=== PATIENT | female | born 1945 | race Caucasian/White ===

== ENCOUNTER → 2016-10-20 | Outpatient (CLI) | payer MEDICARE, OTHER ==
[2016-10-20 12:18] LABS: ALT 48 U/L (9-52); AST 47 U/L (14-36); Alkaline Phosphatase 100 U/L (38-126); Anion Gap 12 mmol/L; Blood Urea Nitrogen 33 mg/dL (7-17); Calcium 10.8 mg/dL (8.4-10.2); Carbon Dioxide 30 mmol/L (22-30); Chloride 104 mmol/L (98-107); Glucose 159 mg/dL (74-99); Non-African American GFR(MDRD) >60 (>60 ml/min/1.73 sqM); Potassium 4.8 mmol/L (3.5-5.1); Sodium 146 mmol/L (137-145); Total Bilirubin 0.7 mg/dL (0.2-1.3); Total Protein 7.1 g/dL (6.3-8.2)
[2016-10-20 12:20] LABS: Anisocytosis Slight; CH 31.6; CHCM 32.9; HCT 42.3 % (34.0-46.0); HDW 4.04; HGB 13.6 gm/dL (11.4-16.0); Hypochromasia Slight; MCH 31.3 pg (25.0-35.0); MCHC 32.2 g/dL (31.0-37.0); MCV 97.1 fL (80.0-100.0); Mean Platelet Volume 7.6; Poikilocytosis Moderate; RBC 4.35 m/uL (3.80-5.40); RDW 16.2 % (11.5-15.5); WBC 7.6 k/uL (3.8-10.6)
[2016-10-20 12:32] LABS: Prolactin 10.6 ng/mL (3.0-18.6)
[2016-10-20 13:05] LABS: Vitamin B12 573 pg/mL
[2016-10-21 04:54] LABS: ACTH 53.2 pg/mL (0.00-45.99)
== END | disposition home or self-care (01) ==
LOC: LABWHC1 11:34
PROVIDERS: ATTEND Internal Medicine Endocrinology, Diabetes & Metabolism
DX: E83.52 Hypercalcemia (principal); R53.83 Other fatigue
CPT/HCPCS: 36415; 80053; 82024; 82533; 82607; 83970; 84146; 84443; 85027

== ENCOUNTER 2017-04-12 09:06 | Emergency (ER) | payer MEDICARE, OTHER ==
[2017-04-12 09:14] VITALS: TEMP 98.2
[2017-04-12] MEDS ORDERED: KETOROLAC 30 MG/ML 1 ML VIAL IVP STA (09:29)
--- NOTE | 2017-04-12 09:40 | ED ---
General Adult HPI - General Source: patient, RN notes reviewed Mode of arrival: wheelchair Limitations: no limitations <Naldo Ramires - Last Filed: 04/12/17 11:41> <René Escobar - Last Filed: 04/12/17 11:52> - General Chief complaint: Extremity Injury, Upper Stated complaint: sent from [facility]/EKG Time Seen by Provider: 04/12/17 09:16 - History of Present Illness Initial comments: This a 71-year-old female presents emergency Department with chief complaint of left arm pain. Patient states his pain started muscular for heart pain radiates from her shoulder blade down to her elbow region. Patient states that she was at was more center who sent over here because her pulse was low and concerned about any cardiac issues secondary to pain of her arm. Patient states she gets chemo injections on her left arm. She states she's not sure this is related to that or not. Patient has fever, chills, headache, chest pain or shortness of breath. Denies any dizziness. Patient has no history of blood clot. Patient states that movement does make her symptoms worse at this time. (Naldo Ramires) - Related Data Home Medications Medication Instructions Recorded Confirmed Albuterol Sulfate [Ventolin HFA] 1 - 2 puff INHALATION Q6H PRN 01/29/14 04/12/17 Aspirin 325 mg PO DAILY 01/29/14 04/12/17 Atenolol/Chlorthalidone 1 tab PO DAILY 01/29/14 04/12/17 [Atenolol-Chlorthal 50-25 Tb] Benazepril HCl 20 mg PO DAILY 01/29/14 04/12/17 Letrozole [Femara] 2.5 mg PO DAILY 01/29/14 04/12/17 Levothyroxine Sodium [Synthroid] 137 mcg PO DAILY 01/29/14 04/12/17 Omeprazole [PriLOSEC] 20 mg PO DAILY 01/29/14 04/12/17 Ibuprofen [Motrin] 800 mg PO DAILY PRN 04/12/17 04/12/17 Simvastatin [Zocor] 20 mg PO Q7D 04/12/17 04/12/17 Allergies Allergy/AdvReac Type Severity Reaction Status Date / Time No Known Allergies Allergy Verified 04/12/17 09:34 Review of Systems ROS Other: All systems not noted in ROS Statement are negative. <Naldo Ramires - Last Filed: 04/12/17 11:41> ROS Other: All systems not noted in ROS Statement are negative. <René Escobar - Last Filed: 04/12/17 11:52> ROS Statement: Those systems with pertinent positive or pertinent negative responses have been documented in the HPI. Past Medical History Past Medical History: COPD, Diabetes Mellitus, GERD/Reflux, Hypertension, Osteoarthritis (OA), Pneumonia, Thyroid Disorder Additional Past Medical History / Comment(s): BREAST CA, HEART MURMUR, VARICOSE VEINS,HIATAL HERNIA, ARTHRITIS, OSTEOPENIA, STATES "PRE DIABETIC"Blood sugar elevated when on steroids. History of Any Multi-Drug Resistant Organisms: None Reported Past Surgical History: Appendectomy, Cholecystectomy, Joint Replacement Additional Past Surgical History / Comment(s): D&C,[place] KNEE REPLAC.,LAPARSCOPY, 04/2013 LT MASTECTOMY W/ SECURITY MESSENGER Past Anesthesia/Blood Transfusion Reactions: Motion Sickness Past Psychological History: Depression Smoking Status: Former smoker Past Alcohol Use History: None Reported Past Drug Use History: None Reported - Past Family History Mother Family Medical History: Cancer Sister(s) Family Medical History: Cancer <Naldo Ramires - Last Filed: 04/12/17 11:41> General Exam Limitations: no limitations General appearance: alert, in no apparent distress Head exam: Present: atraumatic, normocephalic, normal inspection Neck exam: Present: normal inspection, full ROM. Absent: tenderness, meningismus, lymphadenopathy Respiratory exam: Present: normal lung sounds bilaterally. Absent: respiratory distress, wheezes, rales, rhonchi, stridor Cardiovascular Exam: Present: regular rate, normal rhythm, normal heart sounds. Absent: systolic murmur, diastolic murmur, rubs, gallop, clicks Extremities exam: Present: other (Left arm there is slight erythematous petechial rash noted on the left forearm patient does have some ecchymosis noted and random areas on the left arm patient's full range of motion mild discomfort with range of motion in tenderness to palpation radial pulses equal bilaterally) Neurological exam: Present: alert, oriented X3, CN II-XII intact, reflexes normal. Absent: motor sensory deficit Skin exam: Present: warm, dry, intact, normal color. Absent: rash <Naldo Ramires - Last Filed: 04/12/17 11:41> Course <Naldo Ramires - Last Filed: 04/12/17 11:41> <René Escobar - Last Filed: 04/12/17 11:52> Vital Signs 04/12/17 04/12/17 09:09 09:42 Temperature 98.2 F Pulse Rate 53 L Pulse Rate [ [address] ] Respiratory 16 Rate Blood Pressure 116/59 O2 Sat by Pulse 93 L Oximetry - Reevaluation(s) Reevaluation #1: 04/12/17 11:51 POC supervision: I did personally do a [id number] evaluation the patient did discuss findings with her. She will follow-up with Dr. Harrington her oncologist. She is in agreement with the current plan of follow-up. She is awake alert oriented 3 did review the x-ray which is reveal density along the lateral margin of the right upper lobe she will follow-up with her oncologist for further evaluation. (René Escobar) EKG Findings - EKG Comments: EKG Findings:: EKG performed at 9:40 sinus bradycardia with rate of 46. WI interval 146 QS duration 82/QTC is QTC 452/395 <Naldo Ramires - Last Filed: 04/12/17 11:41> Medical Decision Making - Lab Data Result diagrams: 04/12/17 09:39 04/12/17 09:39 <Naldo Ramires - Last Filed: 04/12/17 11:41> - Lab Data Result diagrams: 04/12/17 09:39 04/12/17 09:39 <René Escobar - Last Filed: 04/12/17 11:52> - Medical Decision Making 71-year-old female For Left Arm Pain This Is Reproducible Muscle Skeletal Pain. Ultrasound Does Not Show Any Evidence of Acute DVT. Patient Lab Work Is essentially unremarkable though she appears to be slightly behind on fluids. Patient does take a beta terrance which is most likely causing her tachycardia. Patient is advised follow up with PCP and colorer hides and skins to adjust her medications. Patient is asymptomatic. Patient's chest x-ray results were updated shows possible mass. Patient does have breast cancer and will follow- up with Dr. carpenter this week. Return parameters were discussed. (Naldo Ramires) - Lab Data Lab Results 09/04/12/17 04/12/17 Range/Units 09:39 09:39 09:39 WBC 8.6 (3.8-10.6) k/uL RBC 4.51 (3.80-5.40) m/uL Hgb 13.9 (11.4-16.0) gm/dL Hct 43.1 (34.0-46.0) % MCV 95.5 (80.0-100.0) fL MCH 30.9 (25.0-35.0) pg MCHC 32.4 (31.0-37.0) g/dL RDW 16.0 H (11.5-15.5) % Plt Count 268 (150-450) k/uL Neutrophils % 76 % Lymphocytes % 17 % Monocytes % 7 % Eosinophils % 0 % Basophils % 0 % Neutrophils # 6.5 (1.3-7.7) k/uL Lymphocytes # 1.5 (1.0-4.8) k/uL Monocytes # 0.6 (0-1.0) k/uL Eosinophils # 0.0 (0-0.7) k/uL Basophils # 0.0 (0-0.2) k/uL Poikilocytosis Slight Anisocytosis Slight Sodium 142 (137-145) mmol/L Potassium 4.3 (3.5-5.1) mmol/L Chloride 105 (98-107) mmol/L Carbon Dioxide 26 (22-30) mmol/L Anion Gap 11 mmol/L BUN 41 H (7-17) mg/dL Creatinine 0.84 (0.52-1.04) mg/dL Est GFR (MDRD) Af Amer >60 (>60 ml/min/1.73 sqM) Est GFR (MDRD) Non-Af >60 (>60 ml/min/1.73 sqM) Glucose 172 H (74-99) mg/dL Calcium 9.6 (8.4-10.2) mg/dL Total Bilirubin 0.5 (0.2-1.3) mg/dL AST 24 (14-36) U/L ALT 33 (9-52) U/L Alkaline Phosphatase 84 (38-126) U/L Troponin I <0.012 (0.000-0.034) ng/mL Total Protein 6.5 (6.3-8.2) g/dL Albumin 3.7 (3.5-5.0) g/dL Disposition Time of Disposition: 11:43 <Naldo Ramires - Last Filed: 04/12/17 11:41> <René Escobar - Last Filed: 04/12/17 11:52> Clinical Impression: Left arm pain, Bradycardia, Chest mass, Breast cancer Disposition: HOME SELF-CARE Condition: Stable Instructions: Arm Pain (ED) Additional Instructions: Please return to the Emergency Department if symptoms worsen or any other concerns. Referrals: Ildefonso Montoya MD [Primary Care Provider] - 1-2 days
--- NOTE | 2017-04-12 10:10 | XR ---
EXAMINATION TYPE: XR chest 1V DATE OF EXAM: 04/12/2017 COMPARISON: NONE HISTORY: Pain TECHNIQUE: Single frontal view of the chest is obtained. FINDINGS: The heart is markedly enlarged and there is prominence of the thoracic aorta. Ill-defined density along the peripheral margin the right upper lobe. Could not exclude an infiltrate at the left lung base. No sizable pneumothorax. IMPRESSION: 1. Subsegmental consolidation left lung base with cardiomegaly. 2. Density along the lateral margin right upper lobe. Consider follow-up CT scan.
[2017-04-12 10:12] LABS: Anisocytosis Slight; Basophils % (A) 0 %; CH 31.8; CHCM 33.6; Eosinophils % (A) 0 %; HCT 43.1 % (34.0-46.0); HDW 3.89; HGB 13.9 gm/dL (11.4-16.0); Luc # (Auto) 0.04; Luc % (Auto) 1; Lymphocytes # (A) 1.5 k/uL (1.0-4.8); Lymphocytes % (A) 17 %; MCH 30.9 pg (25.0-35.0); MCHC 32.4 g/dL (31.0-37.0); MCV 95.5 fL (80.0-100.0); Mean Platelet Volume 8.3; Monocytes # (A) 0.6 k/uL (0-1.0); Monocytes % (A) 7 %; Neutrophils # (A) 6.5 k/uL (1.3-7.7); Neutrophils % (A) 76 %; Poikilocytosis Slight; RBC 4.51 m/uL (3.80-5.40); WBC 8.6 k/uL (3.8-10.6); WBC (Perox) 9.03
[2017-04-12 10:27] LABS: ALT 33 U/L (9-52); AST 24 U/L (14-36); Alkaline Phosphatase 84 U/L (38-126); Anion Gap 11 mmol/L; Blood Urea Nitrogen 41 mg/dL (7-17); Calcium 9.6 mg/dL (8.4-10.2); Carbon Dioxide 26 mmol/L (22-30); Chloride 105 mmol/L (98-107); Glucose 172 mg/dL (74-99); Non-African American GFR(MDRD) >60 (>60 ml/min/1.73 sqM); Potassium 4.3 mmol/L (3.5-5.1); Sodium 142 mmol/L (137-145); Total Bilirubin 0.5 mg/dL (0.2-1.3); Total Protein 6.5 g/dL (6.3-8.2)
--- NOTE | 2017-04-12 11:23 | US ---
EXAMINATION TYPE: US venous doppler duplex UE LT DATE OF EXAM: 04/12/2017 COMPARISON: NONE CLINICAL HISTORY: Left arm and shoulder Pain. SIDE PERFORMED: Left Left Arm: Appears negative for DVT Grayscale, color doppler, spectral doppler imaging performed of the deep veins of the left upper extr emity. There is normal flow, compressibility and vascular waveforms. IMPRESSION: No ultrasound evidence for acute deep or superficial vein thrombus in the left upper extr emity.
[2017-04-12 12:07] VITALS: BP 107/57; PULSE 48; RESP 24
== END 2017-04-12 12:11 | disposition home or self-care (01) ==
LOC: EC 09:06
DX: M79.602 Pain in left arm (principal); R00.1 Bradycardia, unspecified; C50.919 Malignant neoplasm of unspecified site of unspecified female breast; E07.9 Disorder of thyroid, unspecified; K21.9 Gastro-esophageal reflux disease without esophagitis; I10 Essential (primary) hypertension; Z87.891 Personal history of nicotine dependence; Z79.82 Long term (current) use of aspirin; Z79.899 Other long term (current) drug therapy
CPT/HCPCS: 36415; 93005; 80053; 84484; 85025; 71010; 93971; 99284; 96374; J1885

== ENCOUNTER 2017-04-16 12:06 | Emergency (ER) | payer MEDICARE, OTHER ==
[2017-04-16] MEDS ORDERED: METOCLOPRAMIDE 5 MG/ML 2 ML VIAL IVP STA (13:12)
[2017-04-16] MEDS ORDERED: LORazepam 2 MG/ML INJ IV STA (13:12)
[2017-04-16] MEDS ORDERED: SODIUM CHLORIDE 0.9% 1,000 ML IV STA (13:12)
[2017-04-16 13:19] LABS: Anisocytosis Slight; Aty Lym Flag Moderate; CH 32.6; CHCM 34.9; HCT 41.3 % (34.0-46.0); HGB 13.8 gm/dL (11.4-16.0); MCH 31.4 pg (25.0-35.0); MCHC 33.4 g/dL (31.0-37.0); MCV 94.2 fL (80.0-100.0); Poikilocytosis Slight; RBC 4.39 m/uL (3.80-5.40); RDW 16.4 % (11.5-15.5); WBC (Perox) 1.43
--- NOTE | 2017-04-16 13:21 | ED ---
General Adult HPI - General Chief complaint: Nausea/Vomiting/Diarrhea Stated complaint: NVD-cancer pt Time Seen by Provider: 04/16/17 13:05 Source: patient, RN notes reviewed Mode of arrival: wheelchair Limitations: no limitations - History of Present Illness Initial comments: 71-year-old female presents to the emergency department with a chief complaint of nausea vomiting and diarrhea. Patient had her first chemo treatment last week and she started to have the symptoms. She does not have any medications at home for this. She does not think she is getting better. Retention H she throws up. Patient states that she was hoping to get her to feel better. Patient states that she had her treatments at the [facility] here. Her doctor for her cancer is Dr. Harrington.Patient denies any recent fever, chills, shortness of breath, chest pain, back pain, abdominal pain, nausea vomiting, numbness or tingling, dysuria or hematuria, constipation or diarrhea, headaches or visual changes, or any other current symptoms. - Related Data Home Medications Medication Instructions Recorded Confirmed Albuterol Sulfate [Ventolin HFA] 1 - 2 puff INHALATION Q6H PRN 01/29/14 04/12/17 Aspirin 325 mg PO DAILY 01/29/14 04/12/17 Atenolol/Chlorthalidone 1 tab PO DAILY 01/29/14 04/12/17 [Atenolol-Chlorthal 50-25 Tb] Benazepril HCl 20 mg PO DAILY 01/29/14 04/12/17 Letrozole [Femara] 2.5 mg PO DAILY 01/29/14 04/12/17 Levothyroxine Sodium [Synthroid] 137 mcg PO DAILY 01/29/14 04/12/17 Omeprazole [PriLOSEC] 20 mg PO DAILY 01/29/14 04/12/17 Ibuprofen [Motrin] 800 mg PO DAILY PRN 04/12/17 04/12/17 Simvastatin [Zocor] 20 mg PO Q7D 04/12/17 04/12/17 Previous Rx's Medication Instructions Recorded Ondansetron Odt [Zofran ODT] 4 mg PO Q8HR PRN #20 tab 04/16/17 Allergies Allergy/AdvReac Type Severity Reaction Status Date / Time No Known Allergies Allergy Verified 04/16/17 14:47 Review of Systems ROS Statement: Those systems with pertinent positive or pertinent negative responses have been documented in the HPI. ROS Other: All systems not noted in ROS Statement are negative. Past Medical History Past Medical History: COPD, Diabetes Mellitus, GERD/Reflux, Hypertension, Osteoarthritis (OA), Pneumonia, Thyroid Disorder Additional Past Medical History / Comment(s): BREAST CA, HEART MURMUR, VARICOSE VEINS,HIATAL HERNIA, ARTHRITIS, OSTEOPENIA, STATES "PRE DIABETIC"Blood sugar elevated when on steroids. History of Any Multi-Drug Resistant Organisms: None Reported Past Surgical History: Appendectomy, Breast Surgery, Cholecystectomy, Joint Replacement Additional Past Surgical History / Comment(s): D&C,[place] KNEE REPLAC.,LAPARSCOPY, 04/2013 LT MASTECTOMY W/ EPIDEMIOLOGIST Past Anesthesia/Blood Transfusion Reactions: Motion Sickness Past Psychological History: Depression Smoking Status: Former smoker Past Alcohol Use History: None Reported Past Drug Use History: None Reported - Past Family History Mother Family Medical History: Cancer Sister(s) Family Medical History: Cancer General Exam - General Exam Comments Initial Comments: General: The patient is awake and alert, in no distress, and does not appear acutely ill. Eye: Pupils are equal, round and reactive to light, extra-ocular movements are intact; there is normal conjunctiva bilaterally. No signs of icterus. Ears, nose, mouth and throat: There are moist mucous membranes. Neck: The neck is supple, there is no tenderness. Cardiovascular: There is a regular rate and rhythm. No murmur, rub or gallop is appreciated. Respiratory: Lungs are clear to auscultation, respirations are non-labored, breath sounds are equal. No wheezes, stridor, rales, or rhonchi. Gastrointestinal: Soft, non-distended, non-tender abdomen without masses or organomegaly noted. There is no rebound or guarding present. No CVA tenderness. Bowel sounds are unremarkable. Back: There is no tenderness to palpation in the midline. There is no obvious deformity. No rashes noted. Musculoskeletal: Normal ROM, no tenderness, There is no pedal edema. There is no calf tenderness or swelling. Sensation intact. Pulses equal bilaterally 2+. Neurological: CN II-XII intact, There are no obvious motor or sensory deficits. Coordination appears grossly intact. Speech is normal. Skin: Skin is warm and dry and no rashes or lesions are noted. Psychiatric: Cooperative, appropriate mood & affect, normal judgment. Limitations: no limitations Course Vital Signs 04/16/17 12:42 Temperature 99.5 F Pulse Rate 92 Respiratory 16 Rate Blood Pressure 110/57 O2 Sat by Pulse 93 L Oximetry - Reevaluation(s) Reevaluation #1: 04/16/17 14:49 Patient was unable to provide stool sample here. We did send her home with a prescription and instructions on how to get this taken care of. Medical Decision Making - Medical Decision Making 71-year-old female presents emergency Department chief complaint of nausea vomiting and diarrhea . Patient states that she is feeling somewhat better. At this time we will start her on Zofran for home to help with her nausea. We did give her a liter of fluids. At this time I spoke with Dr. Harrington regarding the patient's care and he does feel comfortable with her discharged home. We will discharge her home and have her follow-up. She did tolerate a by mouth challenge. Patient is in agreement with this plan all questions have been answered. This time the patient will be discharged. - Lab Data Result diagrams: 04/16/17 13:16 04/16/17 13:16 Lab Results 04/16/17 04/16/17 04/16/17 Range/Units 13:16 13:16 13:52 WBC 1.4 L* (3.8-10.6) k/uL RBC 4.39 (3.80-5.40) m/uL Hgb 13.8 (11.4-16.0) gm/dL Hct 41.3 (34.0-46.0) % MCV 94.2 (80.0-100.0) fL MCH 31.4 (25.0-35.0) pg MCHC 33.4 (31.0-37.0) g/dL RDW 16.4 H (11.5-15.5) % Plt Count 198 (150-450) k/uL Neutrophils % (Manual) 14 % Lymphocytes % (Manual) 69 % Monocytes % (Manual) 17 % Neutrophils # (Manual) 0.20 L (1.3-7.7) k/uL Lymphocytes # (Manual) 0.97 L (1.0-4.8) k/uL Monocytes # (Manual) 0.24 (0-1.0) k/uL Nucleated RBCs 0 (0-0) /100 WBC Manual Slide Review Performed Poikilocytosis Slight Anisocytosis Slight Sodium 132 L (137-145) mmol/L Potassium 4.8 (3.5-5.1) mmol/L Chloride 98 (98-107) mmol/L Carbon Dioxide 25 (22-30) mmol/L Anion Gap 9 mmol/L BUN 46 H (7-17) mg/dL Creatinine 0.76 (0.52-1.04) mg/dL Est GFR (MDRD) Af Amer >60 (>60 ml/min/1.73 sqM) Est GFR (MDRD) Non-Af >60 (>60 ml/min/1.73 sqM) Glucose 143 H (74-99) mg/dL Calcium 10.1 (8.4-10.2) mg/dL Total Bilirubin 1.8 H (0.2-1.3) mg/dL AST 36 (14-36) U/L ALT 30 (9-52) U/L Alkaline Phosphatase 85 (38-126) U/L Total Protein 6.3 (6.3-8.2) g/dL Albumin 3.6 (3.5-5.0) g/dL Amylase <30 L (30-110) U/L Lipase 67 (23-300) U/L Urine Color [place] Urine Appearance Cloudy H (Clear) Urine pH 6.0 (5.0-8.0) Ur Specific [place] 1.023 (1.001-1.035) Urine Protein 1+ H (Negative) Urine Glucose (UA) Negative (Negative) Urine Ketones Negative (Negative) Urine Blood Negative (Negative) Urine Nitrite Negative (Negative) Urine Bilirubin 1+ H (Negative) Urine Urobilinogen 2.0 (<2.0) mg/dL Ur Leukocyte Esterase Moderate H (Negative) Urine RBC 2 (0-5) /hpf Urine WBC 19 H (0-5) /hpf Ur Squamous Epith Cells 8 H (0-4) /hpf Urine Bacteria Rare H (None) /hpf Cellular Casts 1 (0) /lpf Hyaline Casts 14 H (0-2) /lpf Urine Mucus Few H (None) /hpf Disposition Clinical Impression: Nausea & vomiting, Diarrhea, Breast cancer Disposition: HOME SELF-CARE Condition: Stable Instructions: Acute Nausea and Vomiting (ED) Additional Instructions: Please use medication as discussed. Please follow up with family doctor if symptoms have not improved over the next two days. Please return to the emergency room if your symptoms increase or worsen or for any other concerns. Prescriptions: Ondansetron Odt [Zofran ODT] 4 mg PO Q8HR PRN #20 tab PRN Reason: Nausea Referrals: Talha Oro MD [Primary Care Provider] - 1-2 days Time of Disposition: 14:53
[2017-04-16 13:25] LABS: WBC 1.4 k/uL (3.8-10.6)
[2017-04-16 13:30] LABS: ALT 30 U/L (9-52); AST 36 U/L (14-36); Alkaline Phosphatase 85 U/L (38-126); Amylase <30 U/L (30-110); Anion Gap 9 mmol/L; Blood Urea Nitrogen 46 mg/dL (7-17); Calcium 10.1 mg/dL (8.4-10.2); Carbon Dioxide 25 mmol/L (22-30); Chloride 98 mmol/L (98-107); Glucose 143 mg/dL (74-99); Non-African American GFR(MDRD) >60 (>60 ml/min/1.73 sqM); Sodium 132 mmol/L (137-145); Total Bilirubin 1.8 mg/dL (0.2-1.3); Total Protein 6.3 g/dL (6.3-8.2)
[2017-04-16 13:31] LABS: Potassium 4.8 mmol/L (3.5-5.1)
[2017-04-16 13:54] LABS: Add Differential Manual Differential
[2017-04-16 14:01] LABS: Manual Review Performed; Nucleated Red Blood Cells 0 /100 WBC (0-0); Total Cells Counted 100
[2017-04-16 14:02] LABS: Appearance,Urine Cloudy (Clear); Bacteria,Urine Rare /hpf; Bilirubin,Urine 1+ (Negative); Glucose,Urine (UA) Negative (Negative); Ketones,Urine Negative (Negative); Leukocyte Esterase,Urine Moderate (Negative); Mucus,Urine Few /hpf; Nitrite,Urine Negative (Negative); Particle Count 12990; Protein,Urine 1+ (Negative); RBC,Urine 2 /hpf (0-5); Specific Gravity,Urine 1.023 (1.001-1.035); Squamous Epithelial Cell,Urine 8 /hpf (0-4); UA Billing (MACRO vs. MICRO) MICRO; WBC,Urine 19 /hpf (0-5)
[2017-04-16 15:21] VITALS: BP 142/73; PULSE 96; RESP 18; TEMP 98.9
== END 2017-04-16 15:27 | disposition home or self-care (01) ==
LOC: EC 12:06
DX: R11.2 Nausea with vomiting, unspecified (principal); R19.7 Diarrhea, unspecified; C50.919 Malignant neoplasm of unspecified site of unspecified female breast; F32.9 Major depressive disorder, single episode, unspecified; K21.9 Gastro-esophageal reflux disease without esophagitis; E07.9 Disorder of thyroid, unspecified; I10 Essential (primary) hypertension; Z90.12 Acquired absence of left breast and nipple; Z87.891 Personal history of nicotine dependence; Z79.82 Long term (current) use of aspirin; Z79.899 Other long term (current) drug therapy
CPT/HCPCS: 99284 ×2; 96374 ×2; 96375 ×2; 96361 ×2; 36415; 80053; 82150; 83690; 85025; 81001; J2060; J2765

== ENCOUNTER → 2018-03-02 | Outpatient (CLI) | payer MEDICARE ==
--- NOTE | 2018-03-02 18:04 | US ---
EXAMINATION TYPE: US pelvis complete transvag DATE OF EXAM: 03/02/2018 COMPARISON: NONE CLINICAL HISTORY: K40 Inguinal Pain. Left side pain. No surgeries. Hx of breast cancer, not on tamo xifen TECHNIQUE: Transvaginal (TV) and Transabdominal (TA) . Transabdominal sonographic images of the pel vis were acquired. Transvaginal sonographic images were medically necessary to better assess the fol lowing anatomy: Endometrium and ovaries Date of LMP: EXECUTIVE RECRUITER, EXAM MEASUREMENTS: Uterus: 6.4 x 4.5 x 3.2 cm Endometrial Stripe: 0.2 cm 1. Uterus: Anteverted Peripheral calcifications seen. Heterogenous. 2. Endometrium: Fluid seen within cavity at fundal region 3. Right Ovary: Obscured by overlying bowel gas 4. Left Ovary: Obscured by overlying bowel gas 5. Bilateral Adnexa: wnl 6. Posterior cul-de-sac: no free fluid Cervix- wnl IMPRESSION: Uterus appears normal for age. No adnexal mass or free fluid.
== END | disposition home or self-care (01) ==
LOC: RADUSWWP 16:07
PROVIDERS: ATTEND Family Medicine
DX: R10.30 Lower abdominal pain, unspecified (principal)
CPT/HCPCS: 76830; 76856

== ENCOUNTER → 2018-04-06 | Outpatient (CLI) | payer MEDICARE ==
--- NOTE | 2018-04-09 07:45 | MM ---
Reason for exam: additional evaluation requested from prior study. History: Patient is postmenopausal and has history of breast cancer at age 67. Family history of breast cancer in mother at age 60 and breast cancer in sister at age 60. Lumpectomy of the right breast, 2017. Chemotherapy, 2017. Silicone gel implant in the left breast, 2012. Reconstruction of the left breast, 2012. Mastectomy of the left breast, 2012. Taking antineoplastic for 5 years. Physical Findings: Nurse did not find any significant physical abnormalities on exam. MG 3D Diag Mammo W/Cad [place] Bilateral CC and MLO view(s) were taken. XCCL view(s) were taken of the right breast. ID view(s) were taken of the left breast. The breast tissue is heterogeneously dense. This may lower the sensitivity of mammography. No suspicious calcifications are seen. Left breast mastectomy with implant. Stable lumpectomy changes right breast. These results were verbally communicated with the patient and result sheet given to the patient on 04/06/18. ASSESSMENT: Benign, BI-RAD 2 RECOMMENDATION: Follow-up diagnostic mammogram of both breasts in 1 year.
== END | disposition home or self-care (01) ==
LOC: RADMAMWWP 12:45
PROVIDERS: ATTEND Internal Medicine Hematology & Oncology
DX: Z08 Encounter for follow-up examination after completed treatment for malignant neoplasm (principal); Z85.3 Personal history of malignant neoplasm of breast
CPT/HCPCS: 77066; G0279; 77062

== ENCOUNTER → 2018-04-28 | Outpatient (CLI) | payer MEDICARE ==
--- NOTE | 2018-04-28 19:23 | PE ---
EXAMINATION TYPE: PET CT fusion skull to thigh DATE OF EXAM: 04/28/2018 COMPARISON: 3-D mammogram April 06, 2018. HISTORY: Breast cancer progress study. Diagnosed on biopsy in April 2017. Completed chemotherapy June 2017 after surgery in April. TECHNIQUE: Following the intravenous administration of 10.047 mCi of F-18 FDG, whole body images are performed from the skull base to the midthigh. Images are reviewed on the computer in the coronal, axial, and sagittal planes. Reconstructed rotating images are created on independent workstation and reviewed on the computer. A noncontrast CT is performed in conjunction with the PET scan. SCAN: Subsequent Scan FINDINGS: Exam slightly suboptimal due to patient's large body habitus SKULL BASE AND NECK: No areas of suspicious hypermetabolic uptake are seen. CHEST, MEDIASTINUM, AND HILAR REGION: Left breast implant is in place. No areas of suspicious hyperme tabolic uptake in the thorax including bilateral breast is identified. Surgical clips from right-side d excisional biopsy are redemonstrated. ABDOMEN AND PELVIS: No areas of suspicious hypermetabolic uptake identified. OSSEOUS STRUCTURES: No areas of suspicious hypermetabolic uptake are seen. OTHER CT: Mild to moderate calcified plaque bilateral carotid bulbs is present. Thyroid gland is atro phic or small in size. There is right lateral chest wall lipoma axial image 92. There is marked cardiomegaly with coronary artery calcification which is noted marker for coronary ar aurelia disease. There are enlarged pulmonary arteries, CT findings consistent with underlying pulmonary artery hypertension. There is prominent right hepatic lobe of liver. Gallbladder is not visualized and presumed surgically absent. Spleen is upper limits of normal in size. There is mild to moderate calcified plaque of aorta extending into branch vessels. There is multilevel facet arthropathy in the mid to lower lumbar spine. There is tiny fat-containing umbilical hernia. Occasional pelvic phlebolith is present. IMPRESSION: No suspicious areas of hypermetabolic uptake identified to suggest local or metastatic ma lignant recurrence.
== END | disposition home or self-care (01) ==
LOC: RADPETMAIN 16:09
PROVIDERS: ATTEND Internal Medicine Hematology & Oncology
DX: C50.411 Malignant neoplasm of upper-outer quadrant of right female breast (principal)
CPT/HCPCS: 78815; A9552

== ENCOUNTER → 2018-06-05 | Outpatient (CLI) | payer MEDICARE ==
--- NOTE | 2018-06-06 15:50 | ECHOF ---
Referral Reason:I51.7 Cardiomegaly MEASUREMENTS -------- HEIGHT: 152.4 cm WEIGHT: 106.6 kg BP: IVSd: 1.4 cm (0.6 - 1.1) LVIDd: 4.4 cm (3.9 - 5.3) LVPWd: 2.3 cm (0.6 - 1.1) IVSs: 1.7 cm LVIDs: 4.3 cm LVPWs: 1.1 cm LAESV Index (A-L): 27.33 ml/m Ao Diam: 3.8 cm (2.0 - 3.7) LA Diam: 3.8 cm (2.7 - 3.8) MV EXCURSION: 11.128 mm (> 18.000) MV EF SLOPE: 58 mm/s (70 - 150) EPSS: 0.4 cm MV E Jb: 0.40 m/s MV DecT: 282 ms MV A Jb: 0.82 m/s MV E/A Ratio: 0.49 RAP: 5.00 mmHg RVSP: 37.13 mmHg FINDINGS -------- Sinus rhythm. This was a technically adequate study. Pt. Has Breast inplants The left ventricular size is normal. There is moderate concentric left ventricular hypertrophy. O verall left ventricular systolic function is low-normal with, an EF between 50 - 55 %. The right ventricle is normal in size. The left atrial size is normal. The right atrial size is normal. There is mild aortic valve sclerosis. There is no evidence of aortic regurgitation. Mild mitral annular calcification present. Mild mitral regurgitation is present. Mild tricuspid regurgitation present. There is mild pulmonary hypertension. The right ventricular systolic pressure, as measured by Doppler, is 37.13mmHg. There is no pulmonic regurgitation present. The aortic root size is normal. There is no pericardial effusion. CONCLUSIONS -------- 1. Pt. Has Breast inplants 2. The left ventricular size is normal. 3. There is moderate concentric left ventricular hypertrophy. 4. Overall left ventricular systolic function is low-normal with, an EF between 50 - 55 %. 5. The right ventricle is normal in size. 6. The left atrial size is normal. 7. The right atrial size is normal. 8. There is mild aortic valve sclerosis. 9. Mild mitral annular calcification present. 10. Mild mitral regurgitation is present. 11. Mild tricuspid regurgitation present. 12. There is mild pulmonary hypertension. 13. The right ventricular systolic pressure, as measured by Doppler, is 37.13mmHg. 14. There is no pulmonic regurgitation present. 15. The aortic root size is normal. 16. There is no pericardial effusion. STOCK SPECULATOR: Sirena Gillis RDCS
== END ==
LOC: RADECHMAIN 15:01
PROVIDERS: ATTEND Family Medicine
DX: I08.1 Rheumatic disorders of both mitral and tricuspid valves (principal); I27.20 Pulmonary hypertension, unspecified
CPT/HCPCS: 93306

== ENCOUNTER 2018-10-04 16:04 | Inpatient (IN) | payer MEDICARE ==
[2018-10-04 17:07] VITALS: BMI 44.9
[2018-10-04] MEDS ORDERED: traMADol 50 MG TAB PO PRN (19:12)
[2018-10-04] MEDS ORDERED: HEPARIN SODIUM,PORCINE 5,000 UNIT/ML 1 ML VIAL IV PRN (19:14)
[2018-10-04] MEDS ORDERED: HEPARIN SOD,PORK IN 0.45% NACL 25,000 UNIT in 0.45% NACL 1 250ML.BAG IV SCH (19:15)
[2018-10-04] MEDS: DILTIAZEM 125 MG in SODIUM CHLORIDE 0.9% 100 ML IV SCH (19:38)
[2018-10-04] MEDS: ATORVASTATIN 10 MG TAB PO SCH (19:41)
[2018-10-04 19:49] LABS: Prothrombin Time 11.1 sec (9.0-12.0)
[2018-10-04 19:50] LABS: Partial Thromboplastin Time 20.9 sec (22.0-30.0)
--- NOTE | 2018-10-04 19:58 | XR ---
EXAMINATION TYPE: XR chest 1V portable DATE OF EXAM: 10/04/2018 COMPARISON: 04/12/2017 HISTORY: Atrial fibrillation. Short of breath TECHNIQUE: Single frontal view of the chest is obtained. FINDINGS: There is no heart failure nor confluent pneumonic infiltrate. Exam is limited by the patie nt size. There is no definite pleural effusion. There is probably subsegmental atelectasis at the lef t lung base. IMPRESSION: Left basilar subsegmental atelectasis unchanged compared to old exam. There is probably cardiomegaly.
[2018-10-04 20:49] LABS: T4, Free (Free Thyroxine) 1.31 ng/dL (0.78-2.19)
[2018-10-04] MEDS: MELATONIN 3 MG TABLET PO SCH (22:40)
[2018-10-05] MEDS: DILTIAZEM 125 MG in SODIUM CHLORIDE 0.9% 100 ML IV SCH (02:44)
[2018-10-05 02:57] LABS: Basophils # (A) 0.1 k/uL (0-0.2); Basophils % (A) 1 %; Eosinophils # (A) 0.1 k/uL (0-0.7); Eosinophils % (A) 1 %; HCT 42.5 % (34.0-46.0); Hypochromasia Moderate; Lymphocytes # (A) 2.2 k/uL (1.0-4.8); Lymphocytes % (A) 25 %; MCH 28.7 pg (25.0-35.0); MCHC 30.7 g/dL (31.0-37.0); MCV 93.6 fL (80.0-100.0); Mean Platelet Volume 6.9; Monocytes # (A) 0.5 k/uL (0-1.0); Monocytes % (A) 6 %; Neutrophils # (A) 5.5 k/uL (1.3-7.7); Neutrophils % (A) 64 %; Platelet Count 258 k/uL (150-450); Poikilocytosis Moderate; RBC 4.54 m/uL (3.80-5.40); WBC 8.5 k/uL (3.8-10.6)
[2018-10-05 03:12] LABS: ALT 31 U/L (9-52); AST 18 U/L (14-36); Albumin 3.8 g/dL (3.5-5.0); Alkaline Phosphatase 93 U/L (38-126); Anion Gap 5 mmol/L; Blood Urea Nitrogen 39 mg/dL (7-17); Calcium 10.7 mg/dL (8.4-10.2); Carbon Dioxide 32 mmol/L (22-30); Chloride 106 mmol/L (98-107); Glucose 125 mg/dL (74-99); Magnesium 1.9 mg/dL (1.6-2.3); Potassium 4.5 mmol/L (3.5-5.1); Sodium 143 mmol/L (137-145); Total Bilirubin 0.8 mg/dL (0.2-1.3); Total Protein 6.2 g/dL (6.3-8.2)
[2018-10-05] MEDS ORDERED: LEVOTHYROXINE 75 MCG TAB PO SCH (06:30)
[2018-10-05] MEDS: PANTOPRAZOLE 40 MG TABLET PO SCH (06:33)
[2018-10-05 07:29] LABS: ALT 33 U/L (9-52); AST 19 U/L (14-36); Albumin 3.7 g/dL (3.5-5.0); Alkaline Phosphatase 89 U/L (38-126); Anion Gap 5 mmol/L; Blood Urea Nitrogen 39 mg/dL (7-17); Calcium 10.4 mg/dL (8.4-10.2); Carbon Dioxide 34 mmol/L (22-30); Chloride 104 mmol/L (98-107); Glucose 116 mg/dL (74-99); Potassium 4.5 mmol/L (3.5-5.1); Sodium 143 mmol/L (137-145); Total Bilirubin 0.9 mg/dL (0.2-1.3); Total Protein 6.1 g/dL (6.3-8.2)
[2018-10-05] MEDS: predniSONE 5 MG TAB PO SCH (08:10)
[2018-10-05] MEDS: LETROZOLE 2.5 MG TAB PO SCH (08:11)
[2018-10-05] MEDS ORDERED: LISINOPRIL 20 MG TAB PO SCH (09:00)
[2018-10-05] MEDS ORDERED: MAGNESIUM SULFATE-D5W PMX 1 GM in DEXTROSE/WATER 1 100ML.BAG IVPB ONE (09:35)
[2018-10-05] MEDS: APIXABAN 5 MG TAB PO SCH ×2 (11:02→19:55)
[2018-10-05] MEDS: METOPROLOL TARTRATE 50 MG TAB PO SCH ×2 (11:02→19:55)
--- NOTE | 2018-10-05 11:13 | P.CRDCN ---
History of Present Illness Consult date: 10/05/18 Reason for Consult (text): A. fib RVR Chief complaint: A. fib RVR History of present illness: HISTORY OF PRESENT ILLNESS AND PLAN: This is a 72-year-old [female] with history of breast cancer with left mastectomy in 2012, appendectomy, cholecystectomy, bilateral total knee placement, COPD, 25 year and 1/2 PPD smoker, hypertension, hyperlipidemia, hypothyroid and GERD. Patient presents as direct admit [from Dr. Arnold's office for atrial fibrillation on ECG. Pt presents A. fib with rapid ventricular rate. Patient states she cannot feel palpitations, chest pain, chest pressure. Patient does state she is short of breath with productive cough, patient states she thought it was part of her COPD. Patient is not currently smoking. Patient smoked for 25 years 1/2 PPD. Patient wears oxygen at home, 4 L O2 NC. Patient continues with anti-estrogen therapy for breast cancer history. Patient states she has never seen cardiology. Patient anticoagulated with IV heparin and continues on IV Cardizem. Currently A. fib, heart rate 107. Afebrile.]. SIGNIFICANT PAST MEDICAL HISTORY: [breast cancer with left mastectomy in 2012, appendectomy, cholecystectomy, bilateral total knee placement, COPD, 25 year and 1/2 PPD smoker, hypertension, hyperlipidemia, hypothyroid and GERD] PAST SURGICAL HISTORY: See list. EKG shows [atrial fibrillation], heart rate [107] bpm. Troponins negative x [1]. SIGNIFICANT LABORATORY VALUES: [CBC, WNL BMP, WNL. BUN, 39. CO2, elevated at 32. Magnesium low, 1.9. TSH low, 0.207. ]. Chest x-ray [within normal limits]. Most recent echo dated = [06/05/2018] indicates [EF 50-55%, mild MR. Mild TR. Mild pulmonary hypertension.]. REVIEW OF SYSTEMS: CONSTITUTIONAL: [Denies fever. Denies chills.] EYES: Denies blurred vision. [Denies blurred vision or vision changes. Denies eye pain.] EARS, NOSE, MOUTH & THROAT: [Denies headache. Denies sore throat. Denies ear pain Denies hemoptysis.] CARDIOVASCULAR: [Denies chest pain. Complains of shortness of breath. Denies orthopnea. Denies PND. Denies palpitations.] RESPIRATORY: [Complains of cough with clear sputum production. Complains of shortness of breath. ] GASTROINTESTINAL: [Denies abdominal pain or distention. Denies diarrhea. Denies constipation. Denies nausea. Denies vomiting.] MUSCULOSKELETAL: [Complains of myalgias.] INTEGUMENTARY: [Denies pruitis. Denies rash.] ENDOCRINE: [Complains of fatigue. Denies weight change. Denies polydipsia. Denies polyurina Denies heat/cold intolerance.] GENITOURINARY:[ Denies burning, hematuria or urgency with micturation.] HEMATOLOGIC: [Denies history of anemia. Denies bleeding.] NEUROLOGIC: [Denies numbness. Denies tingling. Complains of weakness.] PSYCHIATRIC: [Denies anxiety. Denies depression.] PHYSICAL EXAM: VITAL SIGNS: stable GENERAL: Well developed, in no acute distress. HEENT: Head is atraumatic, normocephalic. Pupils are equal, round. Extra ocular movements intact. Mucous membranes moist. Neck supple. No JVD. No carotid bruit. No thyromegaly. LUNGS: Auscultation reveals diminished lung sounds bilaterally. No wheezes, rales or rhonchi. Scattered coarse crackle. No chest wall tenderness on palpation or with deep breathing. HEART: Irregular rhythm. No rubs or gallops. S1 and S2 heard. No murmur. ABDOMEN: Abdominal exam, WNL. Bowel sounds x4 quads. Soft, non-tender, without masses, organomegaly, or abdominal aorta enlargement. EXTREMITIES/VASCULAR: Extremities have easily palpable radial, femoral, dorsalis pedis and posterior tibial pulses. No cyanosis, calf tenderness. No BLE edema. NEUROLOGIC: Patient is awake, alert and oriented x3. No focal neurologic abnormalities. FINAL IMPRESSION: 1. [new onset atrial fibrillation]. 2. [hypertension]. 3. [hyperlipidemia]. 4. [COPD exacerbation]. 5. [hypothyroidism, with low TSH level]. PLAN: [Start beta terrance metoprolol tartrate 50 mg twice daily. Discontinue Cardizem IV. Discontinue heparin IV. Start Eliquis 5 mg twice daily. Decrease Synthroid to 125 g daily. Continue all other medication/medical regime. Will follow along, please call with concerns or questions. Thank you kindly for this consult.] Nurse Practitioner note has been reviewed by the Physician. Signing provider agrees with the documented findings, assessment and plan of care. Past Medical History Past Medical History: COPD, Diabetes Mellitus, GERD/Reflux, Hypertension, Osteoarthritis (OA), Pneumonia, Thyroid Disorder Additional Past Medical History / Comment(s): BREAST CA, HEART MURMUR, VARICOSE VEINS,HIATAL HERNIA, ARTHRITIS, OSTEOPENIA, STATES "PRE DIABETIC"Blood sugar elevated when on steroids. possible liver disease, unable to remember History of Any Multi-Drug Resistant Organisms: None Reported Past Surgical History: Appendectomy, Breast Surgery, Cholecystectomy, Joint Replacement Additional Past Surgical History / Comment(s): D&C,[place] KNEE REPLAC.,LAPARSCOPY,04/2013 LT MASTECTOMY W/ DEPUTY SHERIFF Past Anesthesia/Blood Transfusion Reactions: Motion Sickness Smoking Status: Former smoker - Past Family History Mother Family Medical History: Cancer Sister(s) Family Medical History: Cancer Medications and Allergies Home Medications Medication Instructions Recorded Confirmed Type Letrozole [Femara] 2.5 mg PO DAILY 01/29/14 10/04/18 History Omeprazole [PriLOSEC] 20 mg PO DAILY 01/29/14 10/04/18 History Benazepril HCl 40 mg PO DAILY 10/04/18 10/04/18 History Ibuprofen [Motrin] 800 mg PO BID 10/04/18 10/04/18 History Levothyroxine Sodium [Synthroid] 150 mcg PO DAILY 10/04/18 10/04/18 History Simvastatin [Zocor] 10 mg PO HS 10/04/18 10/04/18 History predniSONE 5 mg PO DAILY 10/04/18 10/04/18 History traMADol HCL [Ultram] 50 mg PO BID PRN 10/04/18 10/04/18 History Allergies Allergy/AdvReac Type Severity Reaction Status Date / Time No Known Allergies Allergy Verified 10/04/18 18:15 Physical Exam Vitals: Vital Signs Temp Pulse Resp BP Pulse Ox 10/05/18 08:00 97.6 F 97 18 126/77 90 L 10/05/18 04:00 97.0 F L 77 18 151/82 90 L 10/04/18 23:01 97.6 F 121 H 18 146/98 93 L 10/04/18 20:00 98.3 F 151 H 19 125/73 88 L 10/04/18 16:53 98.1 F 160 H 18 156/95 93 L Intake and Output 10/04/18 10/05/18 10/05/18 22:59 06:59 14:59 Intake Total 10 36.382 200 Output Total 0 Balance 10 36.382 200 Intake: IV 10 Invasive Line 1 10 Intake, IV Titration 36.382 Amount Diltiazem 125 mg In 35.5 Sodium Chloride 0.9% 100 ml @ 5 MG/HR 5 mls/hr IV .Q24H KAROL Rx#:[id number] Heparin Sod,Pork in 0.45% 0.882 NaCl 25,000 unit In 0.45 % NaCl 1 250ml.bag @ 10 mls/hr IV .Q24H KAROL Rx#: [id number] Oral 200 Output: Urine 0 Other: Voiding Method Toilet Toilet # Voids 1 1 1 Weight 104.4 kg 104.4 kg Results 10/05/18 02:36 10/05/18 05:37 Cardiac Enzymes 10/04/18 10/04/18 10/05/18 Range/Units 19:15 19:15 02:36 AST Cancelled 18 Troponin I <0.012 (0.000-0.034) ng/mL 10/05/18 Range/Units 05:37 AST 19 Troponin I (0.000-0.034) ng/mL Coagulation 10/04/18 10/05/18 Range/Units 19:15 02:36 PT 11.1 (9.0-12.0) sec APTT 20.9 L 23.3 (22.0-30.0) sec CBC 10/05/18 Range/Units 02:36 WBC 8.5 (3.8-10.6) k/uL RBC 4.54 (3.80-5.40) m/uL Hgb 13.0 (11.4-16.0) gm/dL Hct 42.5 (34.0-46.0) % Plt Count 258 (150-450) k/uL Comprehensive Metabolic Panel 10/04/18 10/05/18 10/05/18 Range/Units 19:15 02:36 05:37 Sodium Cancelled 143 143 Potassium Cancelled 4.5 4.5 Chloride Cancelled 106 104 Carbon Dioxide Cancelled 32 H 34 H BUN Cancelled 39 H 39 H Creatinine Cancelled 0.72 0.73 Glucose Cancelled 125 H 116 H Calcium Cancelled 10.7 H 10.4 H AST Cancelled 18 19 ALT Cancelled 31 33 Alkaline Phosphatase Cancelled 93 89 Total Protein Cancelled 6.2 L 6.1 L Albumin Cancelled 3.8 3.7 Current Medications Generic Name Dose Route Start Last Admin Trade Name Freq PRN Reason Stop Dose Admin Atorvastatin Calcium 10 mg 10/04/18 21:00 10/04/18 19:41 Lipitor PO 10 mg HS KAROL Administration Heparin Sodium (Porcine) 0 unit 10/04/18 19:14 Heparin IV PER PROTOCOL PRN Low PTT Protocol Diltiazem HCl 125 mg/ Sodium 125 mls @ 5 mls/hr 10/04/18 19:15 10/05/18 02:44 Chloride IV 5 mg/hr .Q24H KAROL 5 mls/hr Administration 5 MG/HR Heparin Sodium/Sodium Chloride 250 mls @ 10 mls/hr 10/04/18 19:15 10/05/18 04:27 25,000 unit/ Sodium Chloride IV 13 units/hr .Q24H KAROL 0.13 mls/hr Titration Protocol Magnesium Sulfate/Dextrose 1 100 mls @ 100 mls/hr 10/05/18 09:35 gm/ IV Solution IVPB 10/05/18 10:34 ONCE ONE Letrozole 2.5 mg 10/05/18 09:00 10/05/18 08:11 Femara PO 2.5 mg DAILY KAROL Administration Levothyroxine Sodium 150 mcg 10/05/18 06:30 10/05/18 06:33 Synthroid PO 150 mcg DAILY@0630 KAROL Administration Lisinopril 40 mg 10/05/18 09:00 10/05/18 09:10 Zestril PO 40 mg DAILY KAROL Administration Melatonin 3 mg 10/04/18 22:45 10/04/18 22:40 Melatonin PO 3 mg HS KAROL Administration Pantoprazole Sodium 40 mg 10/05/18 07:30 10/05/18 06:33 Protonix PO 40 mg [id number] KAROL Administration Prednisone 5 mg 10/05/18 09:00 10/05/18 08:10 PO 5 mg DAILY KAROL Administration Tramadol HCl 50 mg 10/04/18 19:12 Ultram PO BID PRN Pain Intake and Output 10/04/18 10/05/18 10/05/18 22:59 06:59 14:59 Intake Total 10 36.382 200 Output Total 0 Balance 10 36.382 200 Intake: IV 10 Invasive Line 1 10 Intake, IV Titration 36.382 Amount Diltiazem 125 mg In 35.5 Sodium Chloride 0.9% 100 ml @ 5 MG/HR 5 mls/hr IV .Q24H KAROL Rx#:[id number] Heparin Sod,Pork in 0.45% 0.882 NaCl 25,000 unit In 0.45 % NaCl 1 250ml.bag @ 10 mls/hr IV .Q24H KAROL Rx#: [id number] Oral 200 Output: Urine 0 Other: Voiding Method Toilet Toilet # Voids 1 1 1 Weight 104.4 kg 104.4 kg 10/05/18 02:36 10/05/18 05:37 - EKG Interpretation EKG shows: atrial fibrillation
--- NOTE | 2018-10-05 11:38 | HP ---
HISTORY AND PHYSICAL A 73-year-old female admitted with A. fib with rapid ventricular response, heart rate in the 170s, started on IV Cardizem drip. Cardiology has been consulted. She came in with lightheaded, dizziness, shortness of breath. REVIEW OF SYSTEMS: Fourteen point review of systems negative except for in HPI. MEDICATIONS: Home medications include: 1. Lopressor. 2. Protonix. 3. Tramadol. 4. Prednisone. 5. Levothyroxine. 6. Zestril. 7. Eliquis. 8. Lipitor. 9. Femara. PHYSICAL EXAMINATION: VITAL SIGNS: Temperature 97.6, pulse is 90s to low 100s, respiratory rate 16 to 18, blood pressure 120 to 150s over 80s to 90s, O2 of 90% on 2 L. CARDIOVASCULAR: Irregular, irregular rhythm with heart rate in the 170s. LUNGS: Scattered wheeze. GI: Soft. HEMATOLOGY: Negative Homans. PSYCH: Fair mood and affect. ASSESSMENT: 1. Atrial fibrillation rapid ventricular response. 2. Hypertension. 3. Hypothyroidism. 4. Chronic obstructive pulmonary disease. 5. History of breast cancer. Continue on current treatments, Cardizem drip, thyroid studies, cardiology consult, echo. MMODL / IJN: [id number] /
--- NOTE | 2018-10-05 18:41 | ECHOF ---
Referral Reason:A-fib RVR MEASUREMENTS -------- HEIGHT: 154.9 cm WEIGHT: 104.3 kg BP: IVSd: 0.9 cm (0.6 - 1.1) LVIDd: 3.6 cm (3.9 - 5.3) LVPWd: 1.0 cm (0.6 - 1.1) IVSs: 1.1 cm LVIDs: 1.4 cm LVPWs: 1.2 cm LAESV Index (A-L): 24.55 ml/m Ao Diam: 3.5 cm (2.0 - 3.7) AV Cusp: 1.8 cm (1.5 - 2.6) LA Diam: 3.4 cm (2.7 - 3.8) AR PHT: 138 ms RAP: 5.00 mmHg RVSP: 33.70 mmHg FINDINGS -------- Atrial fibrillation. This was a technically difficult study with suboptimal views. The left ventricular size is normal. Left ventricular wall thickness is normal. Overall left vent ricular systolic function is low-normal with, an EF between 50 - 55 %. The right ventricle is normal in size. Normal LA size by volume 22+/-6 ml/m2. The right atrium is normal in size. Lumason used The aortic valve is trileaflet and appears structurally normal. Trace amount of aortic regurgitatio n. The mitral valve leaflets are mildly thickened. Mild mitral regurgitation is present. Mild tricuspid regurgitation present. The right ventricular systolic pressure, as measured by Doppl er, is 33.70mmHg. There is no pulmonic regurgitation present. The aortic root size is normal. IVC Not well visulized. The pericardium is normal. CONCLUSIONS -------- 1. Atrial fibrillation. 2. This was a technically difficult study with suboptimal views. 3. The left ventricular size is normal. 4. Left ventricular wall thickness is normal. 5. Overall left ventricular systolic function is low-normal with, an EF between 50 - 55 %. 6. The right ventricle is normal in size. 7. Normal LA size by volume 22+/-6 ml/m2. 8. The right atrium is normal in size. 9. Lumason used 10. The aortic valve is trileaflet and appears structurally normal. 11. Trace amount of aortic regurgitation. 12. The mitral valve leaflets are mildly thickened. 13. Mild mitral regurgitation is present. 14. Mild tricuspid regurgitation present. 15. The right ventricular systolic pressure, as measured by Doppler, is 33.70mmHg. 16. There is no pulmonic regurgitation present. 17. The aortic root size is normal. 18. IVC Not well visulized. 19. The pericardium is normal. [employer] OPERATOR: Raquel Rea RDCS
[2018-10-05] MEDS: ATORVASTATIN 10 MG TAB PO SCH (19:55)
[2018-10-05] MEDS: MELATONIN 3 MG TABLET PO SCH (23:03)
[2018-10-06] MEDS: PANTOPRAZOLE 40 MG TABLET PO SCH (06:11)
[2018-10-06] MEDS ORDERED: LEVOTHYROXINE 125 MCG TAB PO SCH (06:30)
[2018-10-06 07:01] LABS: Anisocytosis Slight; Basophils # (A) 0.1 k/uL (0-0.2); Basophils % (A) 1 %; Eosinophils # (A) 0.2 k/uL (0-0.7); Eosinophils % (A) 3 %; HCT 41.4 % (34.0-46.0); HGB 12.7 gm/dL (11.4-16.0); Hypochromasia Moderate; Lymphocytes % (A) 26 %; MCH 28.6 pg (25.0-35.0); MCHC 30.8 g/dL (31.0-37.0); Mean Platelet Volume 6.8; Monocytes # (A) 0.5 k/uL (0-1.0); Monocytes % (A) 6 %; Neutrophils # (A) 4.8 k/uL (1.3-7.7); Neutrophils % (A) 63 %; Platelet Count 266 k/uL (150-450); Poikilocytosis Moderate; RBC 4.45 m/uL (3.80-5.40); RDW 16.1 % (11.5-15.5); WBC 7.7 k/uL (3.8-10.6)
[2018-10-06 07:04] LABS: Calcium 10.3 mg/dL (8.4-10.2); Potassium 4.2 mmol/L (3.5-5.1)
[2018-10-06] MEDS ORDERED: DIGOXIN 250 MCG/ML 2 ML AMP IVP ONE ×2 (08:30→14:30)
[2018-10-06] MEDS: APIXABAN 5 MG TAB PO SCH ×2 (09:01→20:00)
[2018-10-06] MEDS: predniSONE 5 MG TAB PO SCH (09:01)
[2018-10-06] MEDS: LETROZOLE 2.5 MG TAB PO SCH (09:01)
[2018-10-06] MEDS: METOPROLOL TARTRATE 50 MG TAB PO SCH ×2 (09:01→20:00)
[2018-10-06] MEDS: LISINOPRIL 20 MG TAB PO SCH (13:12)
[2018-10-06 15:49] VITALS: RESP 20
--- NOTE | 2018-10-06 16:51 | PN ---
PROGRESS NOTE SUBJECTIVE: A 73-year-old white female with atrial fibrillation, rapid ventricular response, started on Lanoxin by Cardiology. Medications were adjusted with increasing beta blockers, Lanoxin. Other medicines were discontinued. Eliquis will be needed for new onset atrial fibrillation with rapid ventricular response. A 5 mg b.i.d. coupon was given to her. PT/OT will be given to her. She qualifies for oxygen. On room air, she is sating in the 80s. With any ambulation, she will need a 2 L oxygen for sure with ambulation 4 L at night. PHYSICAL EXAMINATION: Vital signs are stabilized. Cardiovascular S1-S2. Lungs scattered wheeze x4. Irregularly irregular rhythm. Hematology negative Homans. Psych: Fair mood and affect. Continue current treatments, Lanoxin and beta blockers. Discharge home in the morning as mentioned above. For hypothyroidism, the Synthroid was lowered from 150-125 mcg an hour. New scripts were written for that also. MMDONATOL / IJN: [id number] /
--- NOTE | 2018-10-06 16:54 | PN ---
PROGRESS NOTE This lady is in atrial fibrillation. Rate is moderate but better controlled. She also has what seems to be some shortness of breath, but this seems to have improved. Her breathing is easier. She denies any chest discomfort. She seems to have what I believe is new-onset atrial fibrillation, hypertension and hyperlipidemia, and also her thyroid supplementation is a bit too much, so we have cut down the Synthroid to 125 mcg daily. Plan is to add digoxin to her regimen at 1.25 mg IV push 2 doses 6 hours apart and then 0.125 mg daily, decrease lisinopril to 20 mg a day and continue the beta terrance. Based on clinical course, I will make further recommendations. MMDONATOL / IJN: [id number] /
[2018-10-06] MEDS: ATORVASTATIN 10 MG TAB PO SCH (20:00)
[2018-10-06] MEDS: MELATONIN 3 MG TABLET PO SCH (23:02)
[2018-10-07] MEDS: PANTOPRAZOLE 40 MG TABLET PO SCH (06:40)
[2018-10-07 08:11] VITALS: TEMP 98.5
[2018-10-07] MEDS ORDERED: DIGOXIN 125 MCG TAB PO SCH (09:00)
[2018-10-07] MEDS: APIXABAN 5 MG TAB PO SCH (09:02)
[2018-10-07] MEDS: METOPROLOL TARTRATE 50 MG TAB PO SCH ×2 (09:02→15:22)
[2018-10-07] MEDS: LETROZOLE 2.5 MG TAB PO SCH (09:02)
[2018-10-07] MEDS: predniSONE 5 MG TAB PO SCH (09:02)
[2018-10-07] MEDS: LISINOPRIL 20 MG TAB PO SCH (11:52)
--- NOTE | 2018-10-07 14:25 | PN ---
PROGRESS NOTE Mrs. Simon is in atrial fib. Rate is much better controlled with Lopressor which I am going to increase to t.i.d. She is anticoagulated on Eliquis 5 mg b.i.d. She has past history of smoking, COPD, atrial fib which is relatively new onset and rate is better controlled. Vitals are stable. S1-S2 heard normally. Regular rate and rhythm noted. Short systolic murmur noted. Lungs revealed improved air entry. Abdomen and lower extremity exam is unchanged. Plan is to increase Lopressor to 50 mg t.i.d. continue Eliquis and if the rate control is good, she can be discharged and I will see her in the office in 2 weeks. MMODL / IJN: [id number] /
[2018-10-07 15:19] VITALS: BP 123/81; PULSE 81
[2018-10-08] MEDS ORDERED: LEVOTHYROXINE 125 MCG TAB PO SCH (06:30)
--- NOTE | 2018-10-09 11:51 | CDI ---
Documentation Clarification Form Date: 10/09/18 From: Allegra Browne Phone: If you have a question regarding this query, please contact Dori Wong at [phone] between 8am and 5pm. Admit Date: 10/04/2018 4:33:00 PM Patient Name: Daphney Simon Visit Number: [id number] Discharge Date: 10/07/2018 6:38:00 PM ATTENTION: The Clinical Documentation Specialists (CDI) and [facility] Coding Staff appreciate your assistance in clarifying documentation. Please respond to the clarification below the line at the bottom and electronically sign. The CDI & [facility] Coding staff will review the response and follow-up if needed. Please note: Queries are made part of the Legal Health Record. If you have any questions, please contact the author of this message via ITS. Dr. Robert Waterman Atrial Fibrillation is documented in your consult note, the H&P and all progress notes. History/Risk Factors: Patient has a history of hypertension, hypothyroidism and COPD. Clinical Indicators: Elevated heart rate, light headed, dizzy and shortness of breath. EKG/telemetry: Atrial fibrillation Treatment: IV Diltiazem, Eliquis In your professional opinion, can you please clarify the type of Atrial Fibrillation, if known? Chronic/Permanent Paroxysmal Persistent Other, please specify Unable to determine Unable to determine MTDD
== END 2018-10-07 18:38 | disposition home or self-care (01) | DRG 309 ==
LOC: 3SCARD 16:33
PROVIDERS: ADMIT Family Medicine; ATTEND Family Medicine
DX: I48.91 Unspecified atrial fibrillation (principal); J44.1 Chronic obstructive pulmonary disease with (acute) exacerbation; I27.20 Pulmonary hypertension, unspecified; E11.9 Type 2 diabetes mellitus without complications; E03.9 Hypothyroidism, unspecified; E78.5 Hyperlipidemia, unspecified; I10 Essential (primary) hypertension; K21.9 Gastro-esophageal reflux disease without esophagitis; M85.80 Other specified disorders of bone density and structure, unspecified site; I83.90 Asymptomatic varicose veins of unspecified lower extremity; K44.9 Diaphragmatic hernia without obstruction or gangrene; M19.90 Unspecified osteoarthritis, unspecified site; R01.1 Cardiac murmur, unspecified; Z79.811 Long term (current) use of aromatase inhibitors; Z79.890 Hormone replacement therapy; Z79.52 Long term (current) use of systemic steroids; Z79.899 Other long term (current) drug therapy; Z85.3 Personal history of malignant neoplasm of breast; Z87.891 Personal history of nicotine dependence; Z90.12 Acquired absence of left breast and nipple; Z99.81 Dependence on supplemental oxygen; Z90.49 Acquired absence of other specified parts of digestive tract; Z96.653 Presence of artificial knee joint, bilateral; Z80.9 Family history of malignant neoplasm, unspecified; Z87.01 Personal history of pneumonia (recurrent)
CPT/HCPCS: 71045; 80048; 80053; 83735; 84439; 84443; 84484; 85025; 85610; 85730; 93306; 94760

== ENCOUNTER → 2018-10-23 | Outpatient (CLI) | payer MEDICARE | LOC: LABWHC1 15:19 | PROVIDERS: ATTEND Internal Medicine Interventional Cardiology | DX: E05.90 Thyrotoxicosis, unspecified without thyrotoxic crisis or storm (principal) | CPT/HCPCS: 36415; 80051; 82565; 82947; 84439; 84443; 84520; 85027 ==

== ENCOUNTER → 2018-10-23 | Outpatient (CLI) | payer MEDICARE ==
[2018-10-23 15:56] LABS: Anisocytosis Slight; HCT 36.7 % (34.0-46.0); HGB 12.2 gm/dL (11.4-16.0); Hypochromasia Slight; MCH 29.6 pg (25.0-35.0); MCHC 33.3 g/dL (31.0-37.0); Platelet Count 186 k/uL (150-450); Poikilocytosis Moderate; RBC 4.13 m/uL (3.80-5.40); WBC 6.4 k/uL (3.8-10.6)
[2018-10-23 16:19] LABS: Anion Gap 4 mmol/L; Blood Urea Nitrogen 32 mg/dL (7-17); Carbon Dioxide 35 mmol/L (22-30); Chloride 103 mmol/L (98-107); Glucose 121 mg/dL (74-99); Sodium 142 mmol/L (137-145)
== END | disposition home or self-care (01) ==
LOC: LABPAT 15:15
PROVIDERS: ATTEND Internal Medicine Interventional Cardiology
DX: Z01.812 Encounter for preprocedural laboratory examination (principal); I48.1 Persistent atrial fibrillation
CPT/HCPCS: 36415; 80051; 82565; 82947; 84520; 85027

== ENCOUNTER → 2018-11-05 | Day surgery (SDC) | payer MEDICARE ==
[2018-10-31 10:11] VITALS: BMI 45.8
[~2018-11-05] MED LIST: LACTATED RINGERS 1,000 ML IV SCH; LIDOCAINE 1% 20 ML VIAL (10MG/ML) FOR IV START INTRADERMA PRN; MIDAZOLAM (PF) 2 MG/2 ML VIAL IV PRN; PROPOFOL 10 MG/ML 20 ML VIAL IV ONE; SODIUM CHLORIDE 0.9% 1,000 ML IV SCH; fentaNYL (PF) 50 MCG/ML 2 ML AMP IV PRN
[2018-11-05 06:53] VITALS: TEMP 98.8
[2018-11-05 07:37] LABS: Glucose,Whole Blood 138 mg/dL (75-99)
--- NOTE | 2018-11-05 08:01 | CE ---
CARDIAC ELECTROPHYSIOLOGY REPORT PROCEDURE: Electrical cardioversion. PERFORMED BY: Dr. Marlene Waterman. INDICATION: Persistent atrial fibrillation. CLINICAL INFORMATION: Mrs. Daphney Simon is a 73-year-old obese lady with hypertension, hyperlipidemia, hypothyroidism with a recent onset atrial fibrillation who was seen by me in the hospital and well anticoagulated for at least 4 weeks. She has had a good rate control with beta blockers. Initially, her TSH was low but with cutting back the dose of Synthroid, her TSH was in the normal range. After adequate rate control and adequate anticoagulation, she was advised electrical cardioversion. Risks, benefits, options were explained. PROCEDURE NOTE: Under the influence of ultra short-acting intravenous anesthetic agent with the attendance of the anesthesiologist, three synchronized shocks were delivered at 200, 250 and 300 joules. Patient remained in atrial fibrillation and did not convert to sinus rhythm. This is an unsuccessful electrical cardioversion. The patient remained hemodynamically stable and neurologically intact. She will be discharged later today and we will pursue rate control and anticoagulation and she will be seen in the office in one week. MMODL / IJN: [id number] /
[2018-11-05 08:07] VITALS: RESP 18
[2018-11-05 09:10] VITALS: BP 148/83; PULSE 78
== END ==
LOC: CATHCVL 05:51
PROVIDERS: ATTEND Internal Medicine Interventional Cardiology
DX: I48.1 Persistent atrial fibrillation (principal); I10 Essential (primary) hypertension; E78.5 Hyperlipidemia, unspecified; E11.9 Type 2 diabetes mellitus without complications; K21.9 Gastro-esophageal reflux disease without esophagitis; Z79.01 Long term (current) use of anticoagulants; Z87.891 Personal history of nicotine dependence; E03.9 Hypothyroidism, unspecified; E78.00 Pure hypercholesterolemia, unspecified; Z79.811 Long term (current) use of aromatase inhibitors; Z79.890 Hormone replacement therapy; Z79.52 Long term (current) use of systemic steroids
CPT/HCPCS: 92960; J2704

== ENCOUNTER 2019-02-02 10:02 | Inpatient (IN) | payer MEDICARE ==
[2019-02-02] MEDS ORDERED: SODIUM CHLORIDE 0.9% 1,000 ML IV STA ×2 (10:35)
[2019-02-02] MEDS ORDERED: PANTOPRAZOLE 40 MG/10 ML VIAL IVP STA (10:35)
--- NOTE | 2019-02-02 10:40 | ED ---
General Adult HPI - General Chief complaint: Fall Stated complaint: Fall, blood in stool Time Seen by Provider: 02/02/19 10:23 Source: patient, EMS, RN notes reviewed Mode of arrival: EMS Limitations: no limitations - History of Present Illness Initial comments: Patient is a pleasant 73-year-old female presenting to the emergency department after being found by family on the floor. Patient states she fell around 5 days ago. Patient has been too weak to get up since that time. Patient has been having bloody stools for several days. Patient is on Eliquis with history of atrial fibrillation fibrillation. Patient does feel fatigued and generally weak. No headache or confusion. No isolated area of weakness. No chest pain. No dyspnea. Patient states she did have some bloody movements prior to having a fall. Patient states she has not ate or drink past 5 days. - Related Data Home Medications Medication Instructions Recorded Confirmed Simvastatin [Zocor] 10 mg PO HS 10/04/18 02/02/19 traMADol HCL [Ultram] 50 mg PO BID 10/04/18 02/02/19 Apixaban [Eliquis] 5 mg PO BID 02/02/19 02/02/19 Letrozole 2.5 mg PO DAILY 02/02/19 02/02/19 Levothyroxine Sodium [Synthroid] 150 mcg PO DAILY 02/02/19 02/02/19 Metoprolol Tartrate [Lopressor] 50 mg PO BID 02/02/19 02/02/19 Previous Rx's Medication Instructions Recorded Digoxin [Lanoxin] 125 mcg PO DAILY tab 10/07/18 Lisinopril [Zestril] 20 mg PO DAILY tab 10/07/18 Allergies Allergy/AdvReac Type Severity Reaction Status Date / Time No Known Allergies Allergy Verified 10/31/18 09:56 Review of Systems ROS Statement: Those systems with pertinent positive or pertinent negative responses have been documented in the HPI. ROS Other: All systems not noted in ROS Statement are negative. Constitutional: Denies: fever Eyes: Denies: eye pain ENT: Denies: ear pain Respiratory: Denies: cough Cardiovascular: Denies: chest pain Endocrine: Reports: fatigue Gastrointestinal: Reports: hematochezia. Denies: abdominal pain Genitourinary: Denies: dysuria Musculoskeletal: Denies: back pain Skin: Denies: rash Neurological: Reports: weakness. Denies: headache, confusion Past Medical History Past Medical History: Atrial Fibrillation, Cancer, COPD, Diabetes Mellitus, GERD/Reflux, Hyperlipidemia, Hypertension, Osteoarthritis (OA), Pneumonia, Thyroid Disorder Additional Past Medical History / Comment(s): BREAST CA, HEART MURMUR, VARICOSE VEINS,HIATAL HERNIA, OSTEOPENIA, STATES "PRE DIABETIC"-Blood sugar elevated when on steroids". possible liver disease-unable to remember, hx ulcer, gout, uses oxygen at 4L continuous History of Any Multi-Drug Resistant Organisms: None Reported Past Surgical History: Appendectomy, Breast Surgery, Cholecystectomy, Joint Replacement Additional Past Surgical History / Comment(s): D&C,[place] [employer] REPLACEMENT.,LAPAROSCOPY, LT MASTECTOMY W/ RESEARCH MANAGEMENT ASSOCIATE , rt breast lumpectomy Past Anesthesia/Blood Transfusion Reactions: Motion Sickness Additional Past Anesthesia/Blood Transfusion Reaction / Comment(s): diff IV starts Past Psychological History: No Psychological Hx Reported Smoking Status: Former smoker - Past Family History Mother Family Medical History: Cancer Sister(s) Family Medical History: Cancer Brother(s) Family Medical History: Deep Vein Thrombosis (DVT), Pulmonary Embolus General Exam Limitations: no limitations General appearance: alert Head exam: Present: atraumatic Eye exam: Present: normal appearance, PERRL ENT exam: Present: normal oropharynx Neck exam: Present: normal inspection. Absent: tenderness Respiratory exam: Present: normal lung sounds bilaterally Cardiovascular Exam: Present: tachycardia, irregular rhythm GI/Abdominal exam: Present: soft. Absent: tenderness Extremities exam: Present: normal inspection Back exam: Present: normal inspection. Absent: tenderness Neurological exam: Present: alert, oriented X3, CN II-XII intact Expanded Neurological exam: Present: protecting the airway Patient oriented to: Present: person, place, time Speech: Present: fluid speech Cranial nerves: EOM's Intact: Normal Motor strength exam: RUE: 5, LUE: 5, RLE: 3, LLE: 3 Eye Response: (4) open spontaneously Motor Response: (6) obeys commands Verbal Response: (5) oriented Psychiatric exam: Present: normal affect, normal mood Skin exam: Present: normal color Course Vital Signs 02/02/19 02/02/19 02/02/19 10:03 11:00 11:30 Temperature 98.4 F Pulse Rate 126 H 129 H 116 H Respiratory 16 43 H 21 Rate Blood Pressure 117/87 105/69 148/73 O2 Sat by Pulse 95 96 96 Oximetry EKG Findings - EKG Comments: EKG Findings:: A. fib with RVR, rate 128. QRS 84. QT 266. QTc 388. Left axis. LVH criteria. Nonspecific ST-T. Medical Decision Making - Medical Decision Making Patient reevaluated and resting comfortably in bed. Patient and family updated on results and plan. Case was discussed in detail with Dr. Oro, who will admit his patient. Consults will place with cardiology and Dr. Larios. - Lab Data Result diagrams: 02/02/19 10:15 02/02/19 10:15 Lab Results 02/02/19 02/02/19 02/02/19 Range/Units 10:15 10:15 10:15 WBC 16.6 H (3.8-10.6) k/uL RBC 4.55 (3.80-5.40) m/uL Hgb 12.7 (11.4-16.0) gm/dL Hct 41.7 (34.0-46.0) % MCV 91.8 (80.0-100.0) fL MCH 27.9 (25.0-35.0) pg MCHC 30.3 L (31.0-37.0) g/dL RDW 16.0 H (11.5-15.5) % Plt Count 484 H (150-450) k/uL Neutrophils % 87 % Lymphocytes % 8 % Monocytes % 3 % Eosinophils % 0 % Basophils % 0 % Neutrophils # 14.6 H (1.3-7.7) k/uL Lymphocytes # 1.3 (1.0-4.8) k/uL Monocytes # 0.5 (0-1.0) k/uL Eosinophils # 0.1 (0-0.7) k/uL Basophils # 0.1 (0-0.2) k/uL Hypochromasia Marked Poikilocytosis Slight Anisocytosis Slight PT (9.0-12.0) sec INR (<1.2) APTT (22.0-30.0) sec Sodium 144 (137-145) mmol/L Potassium 4.0 (3.5-5.1) mmol/L Chloride 105 (98-107) mmol/L Carbon Dioxide 29 (22-30) mmol/L Anion Gap 10 mmol/L BUN 50 H (7-17) mg/dL Creatinine 0.87 (0.52-1.04) mg/dL Est GFR (CKD-EPI)AfAm 78 (>60 ml/min/1.73 sqM) Est GFR (CKD-EPI)NonAf 67 (>60 ml/min/1.73 sqM) Glucose 127 H (74-99) mg/dL Calcium 9.5 (8.4-10.2) mg/dL Total Bilirubin 0.8 (0.2-1.3) mg/dL AST 68 H (14-36) U/L ALT 55 H (9-52) U/L Alkaline Phosphatase 77 (38-126) U/L Creatine Kinase 325 H (30-135) U/L CK-MB (CK-2) 3.4 H (0.0-2.4) ng/mL Troponin I 0.013 (0.000-0.034) ng/mL Total Protein 6.1 L (6.3-8.2) g/dL Albumin 3.0 L (3.5-5.0) g/dL 02/02/19 Range/Units 10:54 WBC (3.8-10.6) k/uL RBC (3.80-5.40) m/uL Hgb (11.4-16.0) gm/dL Hct (34.0-46.0) % MCV (80.0-100.0) fL MCH (25.0-35.0) pg MCHC (31.0-37.0) g/dL RDW (11.5-15.5) % Plt Count (150-450) k/uL Neutrophils % % Lymphocytes % % Monocytes % % Eosinophils % % Basophils % % Neutrophils # (1.3-7.7) k/uL Lymphocytes # (1.0-4.8) k/uL Monocytes # (0-1.0) k/uL Eosinophils # (0-0.7) k/uL Basophils # (0-0.2) k/uL Hypochromasia Poikilocytosis Anisocytosis PT 12.0 (9.0-12.0) sec INR 1.1 (<1.2) APTT 22.1 (22.0-30.0) sec Sodium (137-145) mmol/L Potassium (3.5-5.1) mmol/L Chloride (98-107) mmol/L Carbon Dioxide (22-30) mmol/L Anion Gap mmol/L BUN (7-17) mg/dL Creatinine (0.52-1.04) mg/dL Est GFR (CKD-EPI)AfAm (>60 ml/min/1.73 sqM) Est GFR (CKD-EPI)NonAf (>60 ml/min/1.73 sqM) Glucose (74-99) mg/dL Calcium (8.4-10.2) mg/dL Total Bilirubin (0.2-1.3) mg/dL AST (14-36) U/L ALT (9-52) U/L Alkaline Phosphatase (38-126) U/L Creatine Kinase (30-135) U/L CK-MB (CK-2) (0.0-2.4) ng/mL Troponin I (0.000-0.034) ng/mL Total Protein (6.3-8.2) g/dL Albumin (3.5-5.0) g/dL - Radiology Data Radiology results: image reviewed (Pelvis x-ray reveals no acute process. Chest x-ray shows bibasilar effusion/airspace disease.) Critical Care Time Critical Care Time: Yes Total Critical Care Time: 34 Disposition Clinical Impression: Atrial fibrillation with RVR, GI hemorrhage Disposition: ADMITTED IP TO THIS HOSP Is patient prescribed a controlled substance at d/c from ED?: No Referrals: Talha Oro MD [Primary Care Provider] - 1-2 days Decision Time: 11:51
[2019-02-02] MEDS ORDERED: DILTIAZEM 125 MG in SODIUM CHLORIDE 0.9% 100 ML IV SCH (10:45)
[2019-02-02 10:55] LABS: Anisocytosis Slight; Basophils # (A) 0.1 k/uL (0-0.2); Basophils % (A) 0 %; Eosinophils # (A) 0.1 k/uL (0-0.7); Eosinophils % (A) 0 %; HCT 41.7 % (34.0-46.0); HGB 12.7 gm/dL (11.4-16.0); Hypochromasia Marked; Lymphocytes # (A) 1.3 k/uL (1.0-4.8); Lymphocytes % (A) 8 %; MCH 27.9 pg (25.0-35.0); MCHC 30.3 g/dL (31.0-37.0); MCV 91.8 fL (80.0-100.0); Mean Platelet Volume 7.5; Monocytes # (A) 0.5 k/uL (0-1.0); Monocytes % (A) 3 %; Neutrophils # (A) 14.6 k/uL (1.3-7.7); Neutrophils % (A) 87 %; Platelet Count 484 k/uL (150-450); Poikilocytosis Slight; RBC 4.55 m/uL (3.80-5.40); WBC 16.6 k/uL (3.8-10.6)
--- NOTE | 2019-02-02 10:58 | XR ---
EXAMINATION TYPE: XR pelvis AP view , 2 VIEWS DATE OF EXAM ORDERED: 02/02/2019 HISTORY: fall. COMPARISON: None. FINDINGS: The bones are osteopenic, likely on the basis of osteoporosis. There is degenerative car e present in both hips. No acute fracture or dislocation is seen. IMPRESSION: NO ACUTE OSSEOUS LESION.
--- NOTE | 2019-02-02 10:59 | XR ---
EXAMINATION TYPE: XR chest 1V portable DATE OF EXAM: 02/02/2019 HISTORY: fall. REFERENCE: Previous study dated 10/04/2018. FINDINGS: There is bibasilar airspace disease. There are bilateral effusions. These are worse in comp titason with previous study. Heart size is obscured. IMPRESSION: 1. WORSENING BIBASILAR AIRSPACE DISEASE. 2. WORSENING BILATERAL EFFUSIONS
[2019-02-02 11:07] LABS: Calcium 9.5 mg/dL (8.4-10.2); Total Bilirubin 0.8 mg/dL (0.2-1.3); Total Protein 6.1 g/dL (6.3-8.2)
[2019-02-02 11:20] LABS: INR 1.1 (<1.2); Partial Thromboplastin Time 22.1 sec (22.0-30.0)
[2019-02-02 11:23] LABS: Creatine Kinase MB 3.4 ng/mL (0.0-2.4); Troponin I 0.013 ng/mL (0.000-0.034)
[2019-02-02] MEDS ORDERED: NALOXONE 0.4 MG/ML 1 ML VIAL IV PRN (11:51)
[2019-02-02] MEDS ORDERED: PNEUMONIA PROTOCOL UTILIZED 1 EACH MISC PO PRN (11:55)
[2019-02-02] MEDS ORDERED: AZITHROMYCIN 500 MG in SODIUM CHLORIDE 0.9% 250 ML IVPB STA (11:55)
--- NOTE | 2019-02-02 11:58 | ED ---
Medical Decision Making - Medical Decision Making There is concern for pneumonia and sepsis diagnosed at 11:50 AM. Blood culture and lactic acid have been ordered. IV antibiotics have been ordered. - Lab Data Result diagrams: 02/02/19 10:15 02/02/19 10:15 Lab Results 02/02/19 02/02/19 02/02/19 Range/Units 10:15 10:15 10:15 WBC 16.6 H (3.8-10.6) k/uL RBC 4.55 (3.80-5.40) m/uL Hgb 12.7 (11.4-16.0) gm/dL Hct 41.7 (34.0-46.0) % MCV 91.8 (80.0-100.0) fL MCH 27.9 (25.0-35.0) pg MCHC 30.3 L (31.0-37.0) g/dL RDW 16.0 H (11.5-15.5) % Plt Count 484 H (150-450) k/uL Neutrophils % 87 % Lymphocytes % 8 % Monocytes % 3 % Eosinophils % 0 % Basophils % 0 % Neutrophils # 14.6 H (1.3-7.7) k/uL Lymphocytes # 1.3 (1.0-4.8) k/uL Monocytes # 0.5 (0-1.0) k/uL Eosinophils # 0.1 (0-0.7) k/uL Basophils # 0.1 (0-0.2) k/uL Hypochromasia Marked Poikilocytosis Slight Anisocytosis Slight PT (9.0-12.0) sec INR (<1.2) APTT (22.0-30.0) sec Sodium 144 (137-145) mmol/L Potassium 4.0 (3.5-5.1) mmol/L Chloride 105 (98-107) mmol/L Carbon Dioxide 29 (22-30) mmol/L Anion Gap 10 mmol/L BUN 50 H (7-17) mg/dL Creatinine 0.87 (0.52-1.04) mg/dL Est GFR (CKD-EPI)AfAm 78 (>60 ml/min/1.73 sqM) Est GFR (CKD-EPI)NonAf 67 (>60 ml/min/1.73 sqM) Glucose 127 H (74-99) mg/dL Calcium 9.5 (8.4-10.2) mg/dL Total Bilirubin 0.8 (0.2-1.3) mg/dL AST 68 H (14-36) U/L ALT 55 H (9-52) U/L Alkaline Phosphatase 77 (38-126) U/L Creatine Kinase 325 H (30-135) U/L CK-MB (CK-2) 3.4 H (0.0-2.4) ng/mL Troponin I 0.013 (0.000-0.034) ng/mL Total Protein 6.1 L (6.3-8.2) g/dL Albumin 3.0 L (3.5-5.0) g/dL 02/02/19 Range/Units 10:54 WBC (3.8-10.6) k/uL RBC (3.80-5.40) m/uL Hgb (11.4-16.0) gm/dL Hct (34.0-46.0) % MCV (80.0-100.0) fL MCH (25.0-35.0) pg MCHC (31.0-37.0) g/dL RDW (11.5-15.5) % Plt Count (150-450) k/uL Neutrophils % % Lymphocytes % % Monocytes % % Eosinophils % % Basophils % % Neutrophils # (1.3-7.7) k/uL Lymphocytes # (1.0-4.8) k/uL Monocytes # (0-1.0) k/uL Eosinophils # (0-0.7) k/uL Basophils # (0-0.2) k/uL Hypochromasia Poikilocytosis Anisocytosis PT 12.0 (9.0-12.0) sec INR 1.1 (<1.2) APTT 22.1 (22.0-30.0) sec Sodium (137-145) mmol/L Potassium (3.5-5.1) mmol/L Chloride (98-107) mmol/L Carbon Dioxide (22-30) mmol/L Anion Gap mmol/L BUN (7-17) mg/dL Creatinine (0.52-1.04) mg/dL Est GFR (CKD-EPI)AfAm (>60 ml/min/1.73 sqM) Est GFR (CKD-EPI)NonAf (>60 ml/min/1.73 sqM) Glucose (74-99) mg/dL Calcium (8.4-10.2) mg/dL Total Bilirubin (0.2-1.3) mg/dL AST (14-36) U/L ALT (9-52) U/L Alkaline Phosphatase (38-126) U/L Creatine Kinase (30-135) U/L CK-MB (CK-2) (0.0-2.4) ng/mL Troponin I (0.000-0.034) ng/mL Total Protein (6.3-8.2) g/dL Albumin (3.5-5.0) g/dL Disposition Clinical Impression: Atrial fibrillation with RVR, GI hemorrhage Disposition: ADMITTED IP TO THIS HOSP Is patient prescribed a controlled substance at d/c from ED?: No Referrals: Talha Oro MD [Primary Care Provider] - 1-2 days Procedures - Sepsis Sepsis Focused Exam #1 Time Sepsis Criteria Met: 11:50 Sepsis Focused Exam Date: 02/02/19 Sepsis Focused Exam Time: 12:01 Sepsis Focused Exam Complete: Yes Vital Signs & RN Notes Reviewed: Yes Capillary Refill: < 2 Seconds: Fingers, Toes Peripheral Pulses: Normal: Radial (R), Radial (L) Skin Color: Normal for Patient Respiratory Exam: normal lung sounds Cardiovascular Exam: tachycardia, irregular rhythm
[2019-02-02] MEDS: SODIUM CHLORIDE 0.9% 1,000 ML IV SCH ×2 (12:15→22:02)
[2019-02-02] MEDS ORDERED: SODIUM CHLORIDE 0.9% 500 ML 500 ML IV STA (12:50)
[2019-02-02 16:44] LABS: Anisocytosis Slight; Basophils % (A) 0 %; Eosinophils # (A) 0.1 k/uL (0-0.7); Eosinophils % (A) 1 %; HCT 40.5 % (34.0-46.0); HGB 12.2 gm/dL (11.4-16.0); Hypochromasia Marked; Lymphocytes # (A) 1.3 k/uL (1.0-4.8); Lymphocytes % (A) 10 %; MCH 28.2 pg (25.0-35.0); MCHC 30.2 g/dL (31.0-37.0); MCV 93.2 fL (80.0-100.0); Mean Platelet Volume 7.4; Monocytes # (A) 0.5 k/uL (0-1.0); Monocytes % (A) 4 %; Neutrophils # (A) 10.6 k/uL (1.3-7.7); Neutrophils % (A) 84 %; Platelet Count 399 k/uL (150-450); Poikilocytosis Slight; RBC 4.35 m/uL (3.80-5.40); RDW 16.1 % (11.5-15.5); WBC 12.7 k/uL (3.8-10.6)
[2019-02-02 19:12] LABS: Glucose,Whole Blood 185 mg/dL (75-99)
--- NOTE | 2019-02-02 20:39 | CT ---
EXAMINATION TYPE: CT chest wo con DATE OF EXAM: 02/02/2019 COMPARISON: Chest CT scan 12/05/2014 HISTORY: Abnormal cxr. CT DLP: 449.6 mGycm. Automated Exposure Control for Dose Reduction was Utilized. TECHNIQUE: CT scan of the thorax is performed without IV contrast. FINDINGS: There is extensive airspace consolidation and atelectasis in both lower lobes. Heart is enlarged. Tho racic aorta is atheromatous. There is no mediastinal adenopathy. There are no hilar masses. There is no mediastinal adenopathy. The bony thorax appears intact. There is hypertrophic spurring in the thor acic spine. There is mild pleural thickening at the lung bases. I see no definite mobile pleural flui d. IMPRESSION: There is bilateral lower lobe pulmonary airspace consolidation and atelectasis that is a change compared to old exam. Moderate cardiomegaly. Heart appears increased compared to old exam.
[2019-02-02] MEDS: IPRATROPIUM-ALBUTEROL 3 ML NEB INHALATION PRN (21:14)
[2019-02-02] MEDS: ATORVASTATIN 10 MG TAB PO SCH (22:01)
[2019-02-02] MEDS: METOPROLOL TARTRATE 50 MG TAB PO SCH (22:01)
[2019-02-02] MEDS: traMADol 50 MG TAB PO SCH (22:01)
[2019-02-02 22:32] LABS: Appearance,Urine Cloudy (Clear); Bilirubin,Urine Negative (Negative); Blood,Urine Negative (Negative); Color,Urine Yellow; Glucose,Urine (UA) Negative (Negative); Granular Casts,Urine 6 /lpf (0); Hyaline Casts,Urine 20 /lpf (0-2); Ketones,Urine Negative (Negative); Leukocyte Esterase,Urine Moderate (Negative); Mucus,Urine Occasional /hpf; Nitrite,Urine Negative (Negative); Protein,Urine 1+ (Negative); RBC,Urine 2 /hpf (0-5); Specific Gravity,Urine 1.023 (1.001-1.035); Squamous Epithelial Cell,Urine 3 /hpf (0-4); WBC,Urine 45 /hpf (0-5)
--- NOTE | 2019-02-02 23:04 | HP ---
HISTORY AND PHYSICAL 73-year-old female presents after being found on the family floor 5 days, unable to get up and crawl to the phone for up to 5 days. Apparently, she has been having bloody stools for 5 days. Has been Eliquis for atrial fibrillation ablation. Generally weak, confused, and muscle aches she says diffuse across her body. Chest x-ray shows some increased fluid build up. Pelvic x-ray was negative for fracture. She states she was having bloody bowel movements prior to having a fall. Has not ate or drank for 4 to 5 days. Her CPK is up to 444. HOME MEDICATIONS: 1. Zocor 10 mg daily. 2. Tramadol 50 b.i.d. 3. Eliquis 5 b.i.d. 4. Letrozole 2.5 daily. 5. Synthroid 150 mcg daily. 6. Metoprolol 50 b.i.d. ALLERGIES: Negative. REVIEW OF SYSTEMS: Fourteen point review of systems negative except for mentioned in HPI. FAMILY HISTORY: Mother with cancer. Sister cancer. Brother with DVT and PE. PHYSICAL EXAMINATION: Elderly looking white female, looks pale, on 2 L oxygen, breathing fairly well. Cardiovascular S1, S2. Irregularly irregular rhythm. Heart rate is in 130s to 150s, irregular irregularly rhythm. LUNGS: Show rales at the base. Hematology 2 to 3+ pedal edema. Abdomen is distended due to obesity. Hematology negative Homans. Psych: Flat mood and affect. Blood pressure is 105 to 140s over 70s to 80s. Temp 98.4. EKG atrial fibrillation with rapid ventricular response. ASSESSMENT: 1. Gastrointestinal bleed. 2. Atrial fibrillation, rapid ventricular response. 3. Rhabdomyolysis. 4. Increase generalized pain secondary to rhabdomyolysis. GI consult for bleeding. Hold Eliquis. Get Cardiology consult. Do a CT scan due to abnormal chest x-ray and wait for Pulmonary consult. MMODL / IJN: [id number] /
[2019-02-03] MEDS: LEVOTHYROXINE 75 MCG TAB PO SCH (06:15)
[2019-02-03 06:40] LABS: Anisocytosis Slight; Basophils % (A) 0 %; Eosinophils # (A) 0.2 k/uL (0-0.7); Eosinophils % (A) 2 %; HCT 43.8 % (34.0-46.0); HGB 13.1 gm/dL (11.4-16.0); Hypochromasia Marked; Lymphocytes # (A) 1.3 k/uL (1.0-4.8); Lymphocytes % (A) 11 %; MCH 28.3 pg (25.0-35.0); MCHC 29.8 g/dL (31.0-37.0); Mean Platelet Volume 7.3; Monocytes # (A) 0.5 k/uL (0-1.0); Monocytes % (A) 4 %; Neutrophils # (A) 10.1 k/uL (1.3-7.7); Neutrophils % (A) 82 %; Platelet Count 343 k/uL (150-450); Poikilocytosis Slight; RBC 4.61 m/uL (3.80-5.40); RDW 16.4 % (11.5-15.5); WBC 12.3 k/uL (3.8-10.6)
[2019-02-03] MEDS: IPRATROPIUM-ALBUTEROL 3 ML NEB INHALATION PRN (06:52)
[2019-02-03 06:55] LABS: ALT 50 U/L (9-52); AST 44 U/L (14-36); African American GFR (CKD) >90 (>60 ml/min/1.73 sqM); Albumin 2.6 g/dL (3.5-5.0); Alkaline Phosphatase 78 U/L (38-126); Anion Gap 8 mmol/L; Blood Urea Nitrogen 29 mg/dL (7-17); Calcium 9.1 mg/dL (8.4-10.2); Carbon Dioxide 27 mmol/L (22-30); Chloride 109 mmol/L (98-107); Creatine Kinase 139 U/L (30-135); Glucose 96 mg/dL (74-99); Potassium 3.4 mmol/L (3.5-5.1); Sodium 144 mmol/L (137-145); Total Bilirubin 0.4 mg/dL (0.2-1.3); Total Protein 5.3 g/dL (6.3-8.2)
[2019-02-03] MEDS: SODIUM CHLORIDE 0.9% 1,000 ML IV SCH ×2 (07:50→16:15)
[2019-02-03] MEDS: PANTOPRAZOLE 40 MG/10 ML VIAL IV SCH (08:08)
[2019-02-03] MEDS: LETROZOLE 2.5 MG TAB PO SCH (08:08)
[2019-02-03] MEDS: traMADol 50 MG TAB PO SCH ×2 (08:08→21:09)
[2019-02-03] MEDS: DIGOXIN 125 MCG TAB PO SCH (08:08)
[2019-02-03] MEDS: LISINOPRIL 20 MG TAB PO SCH (08:08)
[2019-02-03] MEDS: AZITHROMYCIN 500 MG TAB PO SCH (08:08)
[2019-02-03] MEDS: METOPROLOL TARTRATE 50 MG TAB PO SCH ×2 (08:08→21:09)
[2019-02-03] MEDS ORDERED: VANCOMYCIN IV PER PHARMACY 1 EACH MISC MISCELLANE PRN (11:15)
--- NOTE | 2019-02-03 11:45 | XR ---
EXAMINATION TYPE: XR chest 2V DATE OF EXAM: 02/03/2019 HISTORY: pneumonia. REFERENCE: Previous study dated 02/02/2019. FINDINGS: The heart is enlarged. There are bilateral effusions. There is bibasilar airspace disease. There has not been a significant change in the appearance of the chest. IMPRESSION: NO SIGNIFICANT INTERVAL CHANGE IN THE APPEARANCE OF THE CHEST.
[2019-02-03 12:02] LABS: Glucose,Whole Blood 114 mg/dL (75-99)
--- NOTE | 2019-02-03 12:48 | P.GSCN ---
History of Present Illness Consult date: 02/03/19 Reason for Consult: GI bleed History of present illness: This a 73-year-old female who apparently was found fallen at home. There is a question that she may have been on the floor for 5 days. The patient states that she had some bloody bowel movements. She currently denies any significant abdominal pain. Past Medical History Past Medical History: Atrial Fibrillation, Cancer, COPD, Diabetes Mellitus, GERD/Reflux, Hyperlipidemia, Hypertension, Osteoarthritis (OA), Pneumonia, Thyroid Disorder Additional Past Medical History / Comment(s): BREAST CA, HEART MURMUR, VARICOSE VEINS,HIATAL HERNIA, OSTEOPENIA, STATES "PRE DIABETIC"-Blood sugar elevated when on steroids". possible liver disease-unable to remember, hx ulcer, gout, uses oxygen at 4L continuous History of Any Multi-Drug Resistant Organisms: None Reported Past Surgical History: Appendectomy, Breast Surgery, Cholecystectomy, Joint Replacement Additional Past Surgical History / Comment(s): D&C,[employer] REPLACEMENT.,LAPAROSCOPY, LT MASTECTOMY W/ FAMILY SERVICES COORDINATOR , rt breast lumpectomy Past Anesthesia/Blood Transfusion Reactions: Motion Sickness Additional Past Anesthesia/Blood Transfusion Reaction / Comm: diff IV starts Smoking Status: Former smoker - Past Family History Mother Family Medical History: Cancer Sister(s) Family Medical History: Cancer Brother(s) Family Medical History: Deep Vein Thrombosis (DVT), Pulmonary Embolus Medications and Allergies Home Medications Medication Instructions Recorded Confirmed Type Simvastatin [Zocor] 10 mg PO HS 10/04/18 02/02/19 History traMADol HCL [Ultram] 50 mg PO BID 10/04/18 02/02/19 History Digoxin [Lanoxin] 125 mcg PO DAILY tab 10/07/18 02/02/19 Rx Lisinopril [Zestril] 20 mg PO DAILY tab 10/07/18 02/02/19 Rx Apixaban [Eliquis] 5 mg PO BID 02/02/19 02/02/19 History Letrozole 2.5 mg PO DAILY 02/02/19 02/02/19 History Levothyroxine Sodium [Synthroid] 150 mcg PO DAILY 02/02/19 02/02/19 History Metoprolol Tartrate [Lopressor] 50 mg PO BID 02/02/19 02/02/19 History Allergies Allergy/AdvReac Type Severity Reaction Status Date / Time No Known Allergies Allergy Verified 10/31/18 09:56 Surgical - Exam Vital Signs Temp Pulse Resp BP Pulse Ox 98.4 F 126 H 16 117/87 95 02/02/19 10:03 02/02/19 10:03 02/02/19 10:03 02/02/19 10:03 02/02/19 10:03 - General well developed, well nourished, no distress - Eyes PERRL - ENT normal pinna - Neck no masses - Respiratory normal expansion - Cardiovascular Rhythm: regular - Abdomen Abdomen: soft, non tender Results - Labs 02/03/19 05:36 02/03/19 05:36 Abnormal Lab Results - Last 24 Hours (Table) 02/02/19 02/02/19 02/02/19 Range/Units 16:12 16:12 19:10 WBC 12.7 H (3.8-10.6) k/uL MCHC 30.2 L (31.0-37.0) g/dL RDW 16.1 H (11.5-15.5) % Neutrophils # 10.6 H (1.3-7.7) k/uL Potassium (3.5-5.1) mmol/L Chloride (98-107) mmol/L BUN (7-17) mg/dL POC Glucose (mg/dL) 185 H (75-99) mg/dL AST (14-36) U/L Creatine Kinase 244 H (30-135) U/L Total Protein (6.3-8.2) g/dL Albumin (3.5-5.0) g/dL Urine Appearance (Clear) Urine Protein (Negative) Ur Leukocyte Esterase (Negative) Urine WBC (0-5) /hpf Hyaline Casts (0-2) /lpf Urine Mucus (None) /hpf 02/02/19 02/02/19 02/03/19 Range/Units 22:05 22:20 03:38 WBC (3.8-10.6) k/uL MCHC (31.0-37.0) g/dL RDW (11.5-15.5) % Neutrophils # (1.3-7.7) k/uL Potassium (3.5-5.1) mmol/L Chloride (98-107) mmol/L BUN (7-17) mg/dL POC Glucose (mg/dL) (75-99) mg/dL AST (14-36) U/L Creatine Kinase 179 H 137 H (30-135) U/L Total Protein (6.3-8.2) g/dL Albumin (3.5-5.0) g/dL Urine Appearance Cloudy H (Clear) Urine Protein 1+ H (Negative) Ur Leukocyte Esterase Moderate H (Negative) Urine WBC 45 H (0-5) /hpf Hyaline Casts 20 H (0-2) /lpf Urine Mucus Occasional H (None) /hpf 02/03/19 02/03/19 02/03/19 Range/Units 05:36 05:36 11:50 WBC 12.3 H (3.8-10.6) k/uL MCHC 29.8 L (31.0-37.0) g/dL RDW 16.4 H (11.5-15.5) % Neutrophils # 10.1 H (1.3-7.7) k/uL Potassium 3.4 L (3.5-5.1) mmol/L Chloride 109 H (98-107) mmol/L BUN 29 H (7-17) mg/dL POC Glucose (mg/dL) 114 H (75-99) mg/dL AST 44 H (14-36) U/L Creatine Kinase 139 H (30-135) U/L Total Protein 5.3 L (6.3-8.2) g/dL Albumin 2.6 L (3.5-5.0) g/dL Urine Appearance (Clear) Urine Protein (Negative) Ur Leukocyte Esterase (Negative) Urine WBC (0-5) /hpf Hyaline Casts (0-2) /lpf Urine Mucus (None) /hpf Microbiology - Last 24 Hours (Table) 02/02/19 12:00 Blood Culture Gram Stain - Preliminary Blood Blood Culture - Preliminary Coagulase Negative Staph 02/02/19 22:20 Urine Culture - Preliminary Urine,Voided 02/02/19 12:00 Blood Culture - Final Blood Diabetes panel 02/03/19 Range/Units 05:36 Sodium 144 (137-145) mmol/L Potassium 3.4 L (3.5-5.1) mmol/L Chloride 109 H (98-107) mmol/L Carbon Dioxide 27 (22-30) mmol/L BUN 29 H (7-17) mg/dL Creatinine 0.60 (0.52-1.04) mg/dL Glucose 96 (74-99) mg/dL Calcium 9.1 (8.4-10.2) mg/dL AST 44 H (14-36) U/L ALT 50 (9-52) U/L Alkaline Phosphatase 78 (38-126) U/L Total Protein 5.3 L (6.3-8.2) g/dL Albumin 2.6 L (3.5-5.0) g/dL Thyroid panel 02/03/19 Range/Units 05:36 TSH 2.490 (0.465-4.680) mIU/L Calcium panel 02/03/19 Range/Units 05:36 Calcium 9.1 (8.4-10.2) mg/dL Albumin 2.6 L (3.5-5.0) g/dL Pituitary panel 02/03/19 Range/Units 05:36 Sodium 144 (137-145) mmol/L Potassium 3.4 L (3.5-5.1) mmol/L Chloride 109 H (98-107) mmol/L Carbon Dioxide 27 (22-30) mmol/L BUN 29 H (7-17) mg/dL Creatinine 0.60 (0.52-1.04) mg/dL Glucose 96 (74-99) mg/dL Calcium 9.1 (8.4-10.2) mg/dL TSH 2.490 (0.465-4.680) mIU/L Adrenal panel 02/03/19 Range/Units 05:36 Sodium 144 (137-145) mmol/L Potassium 3.4 L (3.5-5.1) mmol/L Chloride 109 H (98-107) mmol/L Carbon Dioxide 27 (22-30) mmol/L BUN 29 H (7-17) mg/dL Creatinine 0.60 (0.52-1.04) mg/dL Glucose 96 (74-99) mg/dL Calcium 9.1 (8.4-10.2) mg/dL Total Bilirubin 0.4 (0.2-1.3) mg/dL AST 44 H (14-36) U/L ALT 50 (9-52) U/L Alkaline Phosphatase 78 (38-126) U/L Total Protein 5.3 L (6.3-8.2) g/dL Albumin 2.6 L (3.5-5.0) g/dL Assessment and Plan Assessment: GI bleed. Patient will undergo EGD and colonoscopy when stable.
--- NOTE | 2019-02-03 14:21 | P.CRDCN ---
History of Present Illness History of present illness: This is a pleasant 73-year-old female past medical history significant for diabetes mellitus, hypertension, dyslipidemia, breast cancer and persistent atrial fibrillation on long-term anticoagulation status post failed cardioversion. She follows in the office with Dr. Waterman. We have been asked to see her in consultation secondary to atrial fibrillation with rapid ventricular response. The patient states 5 days ago she was laying in bed and she heard the phone ringing of the kitchen she attempted to get up to answer the phone with wrapped in the sheets and fell to the floor. She was unable to help herself up and laid on the floor for 5 days. After 5 days she was able to pull herself to the kitchen call her daughter for assistance. Per the patient her daughter states she had a bowel movement some point over the course of the 5 days and there was blood noted in the stool. She was brought to the hospital for further evaluation. EKG on arrival reveals atrial fibrillation with rapid ventricular response. She had been initiated on a Cardizem infusion. Anticoagulation has been held pending surgical evaluation. She denies symptoms of chest discomfort, shortness of breath, dizziness or palpitations. Chest x-ray initially on admission revealed worsening bilateral effusions with worsening bibasilar airspace disease. Repeat today reveals no significant change. CT of the chest reveals bilateral lower lobe airspace consolidation and atelectasis with moderate cardiomegaly. Laboratory data reviewed, WBC 12.3, hemoglobin 13.1, platelets 343, sodium 144, potassium 3.4, creatinine 0.6, cardiac enzymes negative 3, initial CK was 325. TSH 2.49. Current cardiac medications include Eliquis 5 mg twice a day, digoxin 125 g daily, lisinopril 20 mg daily, Lopr essor 50 mg twice a day and simvastatin 10 mg daily. Most recent echocardiogram obtained September 2018 reveals preserved LV systolic function with ejection fraction 50-55%, mild MR and mild TR noted. At the time of my exam: CONSTITUTIONAL: Denies fever. Denies chills. EYES: Denies blurred vision. Denies vision changes. Denies eye pain. EARS, NOSE, MOUTH & THROAT: Denies headache. Denies sore throat. Denies ear pain. CARDIOVASCULAR: Denies chest pain. Denies shortness of breath. Denies orthopnea. Denies PND. Denies palpitations. RESPIRATORY: Denies cough. GASTROINTESTINAL: Denies abdominal pain. Denies diarrhea. Denies constipation. Denies nausea. Denies vomiting. MUSCULOSKELETAL: Complains of all over generalized achy sensations. Mostly in the back. INTEGUMENTARY: Denies pruitis. Denies rash. NEUROLOGIC: Denies numbness. Denies tingling. Denies weakness. PSYCHIATRIC: Denies anxiety. Denies depression. ENDOCRINE: Denies fatigue. Denies weight change. Denies polydipsia. Denies polyurina. GENITOURINARY: Denies burning, hematuria or urgency with micturation. HEMATOLOGIC: Denies history of anemia. Denies bleeding. Blood pressure 123/76 heart rate 79 afebrile maintaining oxygen saturation on room air GENERAL: This is a 73-year-old female in no apparent distress at the time of my examination. Obese. HEENT: Head is atraumatic, normocephalic. Pupils are equal, round. Sclerae anicteric. Conjunctivae are clear. Mucous membranes of the mouth are moist. Neck is supple. There is no jugular venous distention. No carotid bruit is heard. LUNGS: Clear to auscultation no wheezes, rales or rhonchi. No chest wall tenderness is noted on palpation or with deep breathing. Diminished bilaterally. HEART: Irregular rate and rhythm without murmurs, rubs or gallops. S1 and S2 heard. ABDOMEN: Soft, nontender. Bowel sounds are heard. No organomegaly noted. EXTREMITIES: No evidence of peripheral edema and no calf tenderness noted. VASCULAR: Radial and dorsalis pedis pulses palpated, no evidence of clubbing. NEUROLOGIC: Patient is awake, alert and oriented x3. ASSESSMENT Atrial fibrillation with rapid ventricular response Fall with prolonged down time Possible GI bleed Hypertension Dyslipidemia Diabetes mellitus PLAN Heart rate has come down nicely on IV Cardizem, discontinue infusion. Continue digoxin, lisinopril, Lopressor and simvastatin as previously ordered. Resume Xarelto when appropriate per surgical services. Repeat 2-D echocardiogram and Doppler study to assess cardiac structure and function. We will continue to follow make recommendations accordingly. Nurse Practitioner note has been reviewed, I agree with a documented findings and plan of care. Patient was seen and examined. Past Medical History Past Medical History: Atrial Fibrillation, Cancer, COPD, Diabetes Mellitus, GERD/Reflux, Hyperlipidemia, Hypertension, Osteoarthritis (OA), Pneumonia, Thyroid Disorder Additional Past Medical History / Comment(s): BREAST CA, HEART MURMUR, VARICOSE VEINS,HIATAL HERNIA, OSTEOPENIA, STATES "PRE DIABETIC"-Blood sugar elevated when on steroids". possible liver disease-unable to remember, hx ulcer, gout, uses oxygen at 4L continuous History of Any Multi-Drug Resistant Organisms: None Reported Past Surgical History: Appendectomy, Breast Surgery, Cholecystectomy, Joint Replacement Additional Past Surgical History / Comment(s): D&C,[place] [employer] REPLACEMENT.,LAPAROSCOPY, LT MASTECTOMY W/ [employer]OR , rt breast lumpectomy Past Anesthesia/Blood Transfusion Reactions: Motion Sickness Additional Past Anesthesia/Blood Transfusion Reaction / Comment(s): diff IV starts Smoking Status: Former smoker - Past Family History Mother Family Medical History: Cancer Sister(s) Family Medical History: Cancer Brother(s) Family Medical History: Deep Vein Thrombosis (DVT), Pulmonary Embolus Medications and Allergies Home Medications Medication Instructions Recorded Confirmed Type Simvastatin [Zocor] 10 mg PO HS 10/04/18 02/02/19 History traMADol HCL [Ultram] 50 mg PO BID 10/04/18 02/02/19 History Digoxin [Lanoxin] 125 mcg PO DAILY tab 10/07/18 02/02/19 Rx Lisinopril [Zestril] 20 mg PO DAILY tab 10/07/18 02/02/19 Rx Apixaban [Eliquis] 5 mg PO BID 02/02/19 02/02/19 History Letrozole 2.5 mg PO DAILY 02/02/19 02/02/19 History Levothyroxine Sodium [Synthroid] 150 mcg PO DAILY 02/02/19 02/02/19 History Metoprolol Tartrate [Lopressor] 50 mg PO BID 02/02/19 02/02/19 History Allergies Allergy/AdvReac Type Severity Reaction Status Date / Time No Known Allergies Allergy Verified 10/31/18 09:56 Physical Exam Vitals: Vital Signs Temp Pulse Pulse Resp BP BP Pulse Ox 02/03/19 07:57 98.1 F 71 18 125/64 94 L 02/03/19 07:00 68 02/03/19 06:53 60 95 02/03/19 04:00 98.1 F 90 20 96 02/03/19 00:00 97.9 F 109 H 18 137/81 95 02/02/19 21:22 64 02/02/19 21:16 62 02/02/19 20:00 98.2 F 105 H 18 149/77 93 L 02/02/19 16:00 97.7 F 117 H 20 139/64 92 L 02/02/19 14:15 98.3 F 120/73 89 L 02/02/19 13:00 114 H 34 H 109/94 96 02/02/19 12:30 128 H 13 156/80 94 L 02/02/19 12:00 121 H 32 H 136/103 96 02/02/19 11:30 116 H 21 148/73 96 02/02/19 11:00 129 H 43 H 105/69 96 02/02/19 10:03 98.4 F 126 H 16 117/87 95 Intake and Output 02/02/19 02/03/19 02/03/19 22:59 06:59 14:59 Intake Total 240 850 Output Total 300 600 Balance -60 250 Intake: Intake, IV Titration 850 Amount Diltiazem 125 mg In 50 Sodium Chloride 0.9% 100 ml @ 5 MG/HR 5 mls/hr IV .Q24H [facility] Rx#:[id number] Sodium Chloride 0.9% 1, 800 000 ml @ 100 mls/hr IV . Q10H [facility] Rx#:[id number] Oral 240 Output: Urine 300 600 Other: Voiding Method Bedpan Bedpan # Voids 1 Weight 103 kg Results 02/03/19 05:36 02/03/19 05:36 Cardiac Enzymes 02/02/19 02/02/19 02/02/19 Range/Units 10:15 10:15 16:12 AST 68 H (14-36) U/L CK-MB (CK-2) 3.4 H (0.0-2.4) ng/mL Troponin I 0.013 <0.012 (0.000-0.034) ng/mL 02/02/19 02/03/19 02/03/19 Range/Units 22:05 03:38 05:36 AST 44 H (14-36) U/L CK-MB (CK-2) (0.0-2.4) ng/mL Troponin I <0.012 <0.012 (0.000-0.034) ng/mL Coagulation 07/20/19 Range/Units 10:54 PT 12.0 (9.0-12.0) sec APTT 22.1 (22.0-30.0) sec CBC 02/02/19 02/02/19 02/03/19 Range/Units 10:15 16:12 05:36 WBC 16.6 H 12.7 H 12.3 H (3.8-10.6) k/uL RBC 4.55 4.35 4.61 (3.80-5.40) m/uL Hgb 12.7 12.2 13.1 (11.4-16.0) gm/dL Hct 41.7 40.5 43.8 (34.0-46.0) % Plt Count 484 H 399 343 (150-450) k/uL Comprehensive Metabolic Panel 02/02/19 02/03/19 Range/Units 10:15 05:36 Sodium 144 144 (137-145) mmol/L Potassium 4.0 3.4 L (3.5-5.1) mmol/L Chloride 105 109 H (98-107) mmol/L Carbon Dioxide 29 27 (22-30) mmol/L BUN 50 H 29 H (7-17) mg/dL Creatinine 0.87 0.60 (0.52-1.04) mg/dL Glucose 127 H 96 (74-99) mg/dL Calcium 9.5 9.1 (8.4-10.2) mg/dL AST 68 H 44 H (14-36) U/L ALT 55 H 50 (9-52) U/L Alkaline Phosphatase 77 78 (38-126) U/L Total Protein 6.1 L 5.3 L (6.3-8.2) g/dL Albumin 3.0 L 2.6 L (3.5-5.0) g/dL Current Medications Generic Name Dose Route Start Last Admin Trade Name Freq PRN Reason Stop Dose Admin Albuterol/Ipratropium 3 ml 02/02/19 11:55 02/03/19 06:52 Duoneb 0.5 Mg-3 Mg/3 Ml Soln INHALATION 3 ml RT-Q4H PRN Administration shortness of breath Atorvastatin Calcium 10 mg 02/02/19 21:00 02/02/19 22:01 Lipitor PO 10 mg HS [facility] Administration Azithromycin 500 mg 02/03/19 09:00 02/03/19 08:08 Zithromax PO 500 mg DAILY [facility] Administration Digoxin 125 mcg 02/03/19 09:00 02/03/19 08:08 Lanoxin PO 125 mcg DAILY [facility] Administration Diltiazem HCl 125 mg/ Sodium 125 mls @ 5 mls/hr 02/02/19 10:45 02/02/19 11:17 Chloride IV 5 mg/hr .Q24H [facility] 5 mls/hr Administration 5 MG/HR Sodium Chloride 1,000 mls @ 100 mls/hr 02/02/19 12:00 02/03/19 07:50 Saline 0.9% IV Not Given .Q10H [facility] Ceftriaxone Sodium 1 gm/ 50 mls @ 100 mls/hr 02/03/19 09:00 02/03/19 08:08 Sodium Chloride IVPB 02/06/19 09:01 100 mls/hr Q24HR [facility] Administration Letrozole 2.5 mg 02/03/19 09:00 02/03/19 08:08 Femara PO 2.5 mg DAILY [facility] Administration Levothyroxine Sodium 150 mcg 02/03/19 06:30 02/03/19 06:15 Synthroid PO 150 mcg DAILY@0630 [facility] Administration Lisinopril 20 mg 02/03/19 09:00 02/03/19 08:08 Zestril PO 20 mg DAILY [facility] Administration Metoprolol Tartrate 50 mg 02/02/19 21:00 02/03/19 08:08 Lopressor PO 50 mg BID [facility] Administration Miscellaneous Information 1 each 02/02/19 11:55 Pneumonia Protocol Utilized PO ONCE PRN Per Protocol Naloxone HCl 0.2 mg 02/02/19 11:51 Narcan IV Q2M PRN Opioid Reversal Pantoprazole Sodium 40 mg 02/03/19 09:00 02/03/19 08:08 Protonix IV 40 mg DAILY [facility] Administration Tramadol HCl 50 mg 02/02/19 21:00 02/03/19 08:08 Ultram PO 50 mg BID [facility] Administration Intake and Output 02/02/19 02/03/19 02/03/19 22:59 06:59 14:59 Intake Total 240 850 Output Total 300 600 Balance -60 250 Intake: Intake, IV Titration 850 Amount Diltiazem 125 mg In 50 Sodium Chloride 0.9% 100 ml @ 5 MG/HR 5 mls/hr IV .Q24H [facility] Rx#:[id number] Sodium Chloride 0.9% 1, 800 000 ml @ 100 mls/hr IV . Q10H [facility] Rx#:[id number] Oral 240 Output: Urine 300 600 Other: Voiding Method Bedpan Bedpan # Voids 1 Weight 103 kg 02/03/19 05:36 02/03/19 05:36
[2019-02-03 16:50] LABS: Glucose,Whole Blood 168 mg/dL (75-99)
[2019-02-03 20:48] LABS: Glucose,Whole Blood 168 mg/dL (75-99)
[2019-02-03] MEDS: VANCOMYCIN 1,750 MG in SODIUM CHLORIDE 0.9% 500 ML 500 ML IVPB SCH ×2 (20:50→20:59)
[2019-02-03] MEDS: ATORVASTATIN 10 MG TAB PO SCH (21:09)
--- NOTE | 2019-02-03 23:54 | P.CONS ---
History of Present Illness - Reason for Consult Consult date: 02/03/19 Bacteremia Requesting physician: aTlha Oro - Chief Complaint fall weakness and unable to get up and cough - History of Present Illness Patient is a 73-year-old female who has been brought into the ER at [facility] after pending the patient did have a fall, after her feet caught Entangled in the wires and she was trying to hop picker the phone, patient says she did not loose any consciousness and landed on the fourth for a couple of days she was unable to get up to the patient was found by the family EMS was called and the patient was brought into the ER since the patient has been in the hospital she has been afebrile the patient did have elevated white count was 16,000 on admission patient did complain of cough which has been mild to moderate intensity and bring up some yellow sputum but no hemoptysis and no pleuritic chest pain she has been treated with Rocephin and Zithromax blood cultures obtained in the ER came back positive for gram-positive cocci that prompted this infectious disease consultation vancomycin has been added patient also have a CT of the chest that may suggest a bilateral basal consolidation patient denies any episode of unresponsiveness nausea vomiting or choking on the food Review of Systems Positive points has been mentioned in HPI rest of the systems are negative Past Medical History Past Medical History: Atrial Fibrillation, Cancer, COPD, Diabetes Mellitus, GERD/Reflux, Hyperlipidemia, Hypertension, Osteoarthritis (OA), Pneumonia, Thyroid Disorder Additional Past Medical History / Comment(s): BREAST CA, HEART MURMUR, VARICOSE VEINS,HIATAL HERNIA, OSTEOPENIA, STATES "PRE DIABETIC"-Blood sugar elevated when on steroids". possible liver disease-unable to remember, hx ulcer, gout, uses oxygen at 4L continuous History of Any Multi-Drug Resistant Organisms: None Reported Past Surgical History: Appendectomy, Breast Surgery, Cholecystectomy, Joint Repl acement Additional Past Surgical History / Comment(s): D&C,[place] [employer] REPLACE MENT.,LAPAROSCOPY, LT MASTECTOMY W/ [employer]IST , rt breast lumpectomy Past Anesthesia/Blood Transfusion Reactions: Motion Sickness Additional Past Anesthesia/Blood Transfusion Reaction / Comm: diff IV starts Smoking Status: Former smoker - Past Family History Mother Family Medical History: Cancer Sister(s) Family Medical History: Cancer Brother(s) Family Medical History: Deep Vein Thrombosis (DVT), Pulmonary Embolus Medications and Allergies Home Medications Medication Instructions Recorded Confirmed Type Simvastatin [Zocor] 10 mg PO HS 10/04/18 02/02/19 History traMADol HCL [Ultram] 50 mg PO BID 10/04/18 02/02/19 History Digoxin [Lanoxin] 125 mcg PO DAILY tab 10/07/18 02/02/19 Rx Lisinopril [Zestril] 20 mg PO DAILY tab 10/07/18 02/02/19 Rx Apixaban [Eliquis] 5 mg PO BID 02/02/19 02/02/19 History Letrozole 2.5 mg PO DAILY 02/02/19 02/02/19 History Levothyroxine Sodium [Synthroid] 150 mcg PO DAILY 02/02/19 02/02/19 History Metoprolol Tartrate [Lopressor] 50 mg PO BID 02/02/19 02/02/19 History Allergies Allergy/AdvReac Type Severity Reaction Status Date / Time No Known Allergies Allergy Verified 10/31/18 09:56 Physical Exam Vitals: Vital Signs Temp Pulse Pulse Resp BP Pulse Ox 02/03/19 12:00 79 18 02/03/19 11:34 98.1 F 79 18 123/76 93 L 02/03/19 08:00 71 18 02/03/19 07:57 98.1 F 71 18 125/64 94 L 02/03/19 07:00 68 02/03/19 06:53 60 95 02/03/19 04:00 98.1 F 90 20 96 02/03/19 00:00 97.9 F 109 H 18 137/81 95 02/02/19 21:22 64 02/02/19 21:16 62 02/02/19 20:00 98.2 F 105 H 18 149/77 93 L 02/02/19 16:00 97.7 F 117 H 20 139/64 92 L Intake and Output 02/02/19 02/03/19 02/03/19 22:59 06:59 14:59 Intake Total 240 850 Output Total 300 600 Balance -60 250 Intake: Intake, IV Titration 850 Amount Diltiazem 125 mg In 50 Sodium Chloride 0.9% 100 ml @ 5 MG/HR 5 mls/hr IV .Q24H [facility] Rx#:[id number] Sodium Chloride 0.9% 1, 800 000 ml @ 100 mls/hr IV . Q10H [facility] Rx#:[id number] Oral 240 Output: Urine 300 600 Other: Voiding Method Bedpan Bedpan # Voids 1 Weight 103 kg 103 kg GENERAL DESCRIPTION: An elderly female lying in bed, no distress. No tachypnea or accessory muscle of respiration use. HEENT: Shows Pallor , no scleral icterus. Oral mucous membrane is dry. No pharyngeal erythema or thrush NECK: Trachea central, no thyromegaly. LUNGS: Unlabored breathing. Decreased dyspnea on the bases. No wheeze or crackle. HEART: S1, S2, regular rate and rhythm. No loud murmur ABDOMEN: Soft, no tenderness , guarding or rigidity, no organomegaly EXTREMITIES: No edema of feet. SKIN: No rash, no masses palpable. NEUROLOGICAL: The patient is awake, alert, oriented x3, mood and affect normal. Results CBC & Chem 7: 02/03/19 05:36 02/03/19 05:36 Labs: Abnormal Lab Results - Last 24 Hours (Table) 02/02/19 02/02/19 02/02/19 Range/Units 16:12 16:12 19:10 WBC 12.7 H (3.8-10.6) k/uL MCHC 30.2 L (31.0-37.0) g/dL RDW 16.1 H (11.5-15.5) % Neutrophils # 10.6 H (1.3-7.7) k/uL Potassium (3.5-5.1) mmol/L Chloride (98-107) mmol/L BUN (7-17) mg/dL POC Glucose (mg/dL) 185 H (75-99) mg/dL AST (14-36) U/L Creatine Kinase 244 H (30-135) U/L Total Protein (6.3-8.2) g/dL Albumin (3.5-5.0) g/dL Urine Appearance (Clear) Urine Protein (Negative) Ur Leukocyte Esterase (Negative) Urine WBC (0-5) /hpf Hyaline Casts (0-2) /lpf Urine Mucus (None) /hpf 02/02/19 02/02/19 02/03/19 Range/Units 22:05 22:20 03:38 WBC (3.8-10.6) k/uL MCHC (31.0-37.0) g/dL RDW (11.5-15.5) % Neutrophils # (1.3-7.7) k/uL Potassium (3.5-5.1) mmol/L Chloride (98-107) mmol/L BUN (7-17) mg/dL POC Glucose (mg/dL) (75-99) mg/dL AST (14-36) U/L Creatine Kinase 179 H 137 H (30-135) U/L Total Protein (6.3-8.2) g/dL Albumin (3.5-5.0) g/dL Urine Appearance Cloudy H (Clear) Urine Protein 1+ H (Negative) Ur Leukocyte Esterase Moderate H (Negative) Urine WBC 45 H (0-5) /hpf Hyaline Casts 20 H (0-2) /lpf Urine Mucus Occasional H (None) /hpf 02/03/19 02/03/19 02/03/19 Range/Units 05:36 05:36 11:50 WBC 12.3 H (3.8-10.6) k/uL MCHC 29.8 L (31.0-37.0) g/dL RDW 16.4 H (11.5-15.5) % Neutrophils # 10.1 H (1.3-7.7) k/uL Potassium 3.4 L (3.5-5.1) mmol/L Chloride 109 H (98-107) mmol/L BUN 29 H (7-17) mg/dL POC Glucose (mg/dL) 114 H (75-99) mg/dL AST 44 H (14-36) U/L Creatine Kinase 139 H (30-135) U/L Total Protein 5.3 L (6.3-8.2) g/dL Albumin 2.6 L (3.5-5.0) g/dL Urine Appearance (Clear) Urine Protein (Negative) Ur Leukocyte Esterase (Negative) Urine WBC (0-5) /hpf Hyaline Casts (0-2) /lpf Urine Mucus (None) /hpf Microbiology - Last 24 Hours (Table) 02/02/19 12:00 Blood Culture Gram Stain - Preliminary Blood Blood Culture - Preliminary Coagulase Negative Staph 02/02/19 22:20 Urine Culture - Preliminary Urine,Voided 02/02/19 12:00 Blood Culture - Final Blood Assessment and Plan Assessment: 1-patient with a positive blood culture which has been finalized as the cause of his negative staph likely skin contamination as patient increases to go along with it 2-patient did have a cough yellow sputum with evidence of bilateral basal consolidation likely secondary to community-acquired pneumonia clinically doubt pneumonia of aspiration etiology Plan: 1-discontinue the vancomycin to decrease risk of nephrotoxicity 2-try to pain sputum for Gram stain and culture 3-Rocephin 1 g daily and Zithromax 250 by mouth daily to provide adequate coverage for community acquired pneumonia we will follow on clinical condition and culture to further adjust medication if needed Thank you for this consultation will follow this patient along with you Time with Patient: Greater than 30
[2019-02-04] MEDS: SODIUM CHLORIDE 0.9% 1,000 ML IV SCH ×3 (06:02→23:31)
[2019-02-04] MEDS: LEVOTHYROXINE 75 MCG TAB PO SCH (06:05)
[2019-02-04 06:38] LABS: Glucose,Whole Blood 142 mg/dL (75-99)
[2019-02-04 08:05] LABS: African American GFR (CKD) >90 (>60 ml/min/1.73 sqM)
[2019-02-04] MEDS: traMADol 50 MG TAB PO SCH (08:54)
[2019-02-04] MEDS: PANTOPRAZOLE 40 MG/10 ML VIAL IV SCH (09:18)
[2019-02-04] MEDS: METOPROLOL TARTRATE 50 MG TAB PO SCH (09:24)
[2019-02-04] MEDS: DIGOXIN 125 MCG TAB PO SCH (09:24)
[2019-02-04] MEDS: LETROZOLE 2.5 MG TAB PO SCH (09:24)
[2019-02-04] MEDS: LISINOPRIL 20 MG TAB PO SCH (09:24)
[2019-02-04] MEDS: AZITHROMYCIN 500 MG TAB PO SCH (09:24)
[2019-02-04 10:00] LABS: Anisocytosis Slight; Basophils # (A) 0.1 k/uL (0-0.2); Basophils % (A) 1 %; Eosinophils # (A) 0.3 k/uL (0-0.7); Eosinophils % (A) 2 %; HCT 45.6 % (34.0-46.0); HGB 13.4 gm/dL (11.4-16.0); Hypochromasia Marked; Lymphocytes # (A) 1.1 k/uL (1.0-4.8); Lymphocytes % (A) 6 %; MCH 27.6 pg (25.0-35.0); MCHC 29.5 g/dL (31.0-37.0); MCV 93.6 fL (80.0-100.0); Mean Platelet Volume 6.7; Monocytes # (A) 0.6 k/uL (0-1.0); Monocytes % (A) 3 %; Neutrophils # (A) 16.9 k/uL (1.3-7.7); Neutrophils % (A) 88 %; Platelet Count 458 k/uL (150-450); Poikilocytosis Moderate; RBC 4.87 m/uL (3.80-5.40); RDW 16.4 % (11.5-15.5); WBC 19.2 k/uL (3.8-10.6)
[2019-02-04 10:11] LABS: Potassium 4.5 mmol/L (3.5-5.1)
[2019-02-04 10:12] LABS: ALT 44 U/L (9-52); AST 33 U/L (14-36); African American GFR (CKD) >90 (>60 ml/min/1.73 sqM); Alkaline Phosphatase 91 U/L (38-126); Anion Gap 4 mmol/L; Blood Urea Nitrogen 20 mg/dL (7-17); Calcium 9.9 mg/dL (8.4-10.2); Carbon Dioxide 35 mmol/L (22-30); Chloride 104 mmol/L (98-107); Glucose 139 mg/dL (74-99); Sodium 143 mmol/L (137-145); Total Bilirubin 0.4 mg/dL (0.2-1.3); Total Protein 6.1 g/dL (6.3-8.2)
--- NOTE | 2019-02-04 11:01 | ECHOF ---
Referral Reason:afib MEASUREMENTS -------- HEIGHT: 152.4 cm WEIGHT: 103.0 kg BP: 130/81 RVIDd: 2.8 cm (< 3.3) IVSd: 1.5 cm (0.6 - 1.1) LVIDd: 4.7 cm (3.9 - 5.3) LVPWd: 1.4 cm (0.6 - 1.1) IVSs: 2.4 cm LVIDs: 2.8 cm LVPWs: 1.7 cm Ao Diam: 3.8 cm (2.0 - 3.7) AV Cusp: 2.1 cm (1.5 - 2.6) LA Diam: 2.9 cm (2.7 - 3.8) MV EXCURSION: 18.395 mm (> 18.000) MV EF SLOPE: 115 mm/s (70 - 150) RAP: 5.00 mmHg RVSP: 40.07 mmHg FINDINGS -------- Atrial fibrillation. This was a technically difficult study with suboptimal views. Grossly normal LV size and systolic function. There is moderate concentric left ventricular hypertro phy. There is normal global left ventricular contractility. Overall left ventricular systolic fun ction is normal with, an EF between 55 - 60 %. The right ventricle is normal in size and function. The left atrium is normal in size. The right atrium is normal in size. Lumason used Interatrial and interventricular septum intact. There is mild aortic valve sclerosis. There is no evidence of aortic regurgitation. Normal appearing mitral valve. Mild tricuspid regurgitation present. There is borderline pulmonary hypertension. The right ventr icular systolic pressure, as measured by Doppler, is 40.07mmHg. The pulmonic valve was not well visualized. The aortic root, ascending aorta and aortic arch are normal. The pericardium is normal. CONCLUSIONS -------- 1. Atrial fibrillation. 2. This was a technically difficult study with suboptimal views. 3. Grossly normal LV size and systolic function. Unable to comment on regional wall motion. 4. There is moderate concentric left ventricular hypertrophy. 5. There is normal global left ventricular contractility. 6. The right ventricle is normal in size and function. 7. The left atrium is normal in size. 8. The right atrium is normal in size. 9. Lumason used 10. Interatrial and interventricular septum intact. 11. There is mild aortic valve sclerosis. 12. There is no evidence of aortic regurgitation. 13. Normal appearing mitral valve. 14. Mild tricuspid regurgitation present. 15. There is borderline pulmonary hypertension. 16. The right ventricular systolic pressure, as measured by Doppler, is 40.07mmHg. 17. The pulmonic valve was not well visualized. 18. The aortic root, ascending aorta and aortic arch are normal. 19. The pericardium is normal. PROVIDER RELATIONS REP: Du Rolon RDCS
--- NOTE | 2019-02-04 11:47 | P.PN ---
Subjective Progress Note Date: 02/04/19 CHIEF COMPLAINT: GI bleed HISTORY OF PRESENT ILLNESS: Patient seen and examined this morning at the bedside. Patient is lethargic and only able to answer a few questions. She has not received any narcotics. Patient denies abdominal pain. No further rectal bleeding. Nursing reports no BM since admission. Hemoglobin is 13.4 this morning PHYSICAL EXAM: VITAL SIGNS: Reviewed. GENERAL: Well-developed in no acute distress. HEENT: No sclera icterus. Extraocular movements grossly intact. Moist buccal mucosa. Head is atraumatic, normocephalic. ABDOMEN: Soft. Nondistended. Nontender. NEUROLOGIC: Lethargic. Arousable to verbal stimuli ASSESSMENT: 1. Questionable GI bleed 2. Fall PLAN: 1. Diet as tolerated 2. Continue to hold Eliquis 3. Plan for EGD/colonoscopy when medically stable Nurse practitioner note has been reviewed by physician. Signing provider agrees with the documented findings, assessment, and plan of care. Objective - Vital Signs Vital signs: Vital Signs Temp 97.8 F 02/04/19 08:05 Pulse 63 02/04/19 08:05 Resp 18 02/04/19 08:05 BP 147/104 02/04/19 08:05 Pulse Ox 96 02/04/19 08:05 Intake & Output 02/03/19 02/04/19 02/04/19 18:59 06:59 18:59 Intake Total 360 1520 Output Total 850 Balance 360 670 Weight 103 kg 107.2 kg Intake: Intake, IV Titration 1400 Amount Sodium Chloride 0.9% 1, 900 000 ml @ 100 mls/hr IV . Q10H [facility] Rx#:[id number] Vancomycin 1,750 mg In 500 Sodium Chloride 0.9% 500 ml 500 ml @ 167 mls/hr IVPB Q12HR [facility] Rx#: [id number] Oral 360 120 Output: Urine 850 Other: Voiding Method Bedpan Bedpan Diaper # Voids 3 1 - Labs CBC & Chem 7: 02/04/19 09:33 02/04/19 09:33 Labs: Abnormal Lab Results - Last 24 Hours (Table) 02/03/19 02/03/19 02/03/19 Range/Units 11:50 16:48 20:47 WBC (3.8-10.6) k/uL MCHC (31.0-37.0) g/dL RDW (11.5-15.5) % Plt Count (150-450) k/uL Neutrophils # (1.3-7.7) k/uL Carbon Dioxide (22-30) mmol/L BUN (7-17) mg/dL Glucose (74-99) mg/dL POC Glucose (mg/dL) 114 H 168 H 168 H (75-99) mg/dL Total Protein (6.3-8.2) g/dL Albumin (3.5-5.0) g/dL 02/04/19 02/04/19 02/04/19 Range/Units 06:36 09:33 09:33 WBC 19.2 H (3.8-10.6) k/uL MCHC 29.5 L (31.0-37.0) g/dL RDW 16.4 H (11.5-15.5) % Plt Count 458 H (150-450) k/uL Neutrophils # 16.9 H (1.3-7.7) k/uL Carbon Dioxide 35 H (22-30) mmol/L BUN 20 H (7-17) mg/dL Glucose 139 H (74-99) mg/dL POC Glucose (mg/dL) 142 H (75-99) mg/dL Total Protein 6.1 L (6.3-8.2) g/dL Albumin 3.0 L (3.5-5.0) g/dL Microbiology - Last 24 Hours (Table) 02/02/19 22:20 Urine Culture - Final Urine,Voided 02/02/19 12:00 Blood Culture Gram Stain - Preliminary Blood Blood Culture - Preliminary Coagulase Negative Staph
[2019-02-04 11:57] LABS: Glucose,Whole Blood 136 mg/dL (75-99)
[2019-02-04 14:26] LABS: ABG Base Excess 7.4 mmol/L; ABG HCO3 36 mmol/L (21-25); ABG Oxygen Saturation 93.3 % (94-97); ABG PO2 79 mmHg (83-108); ABG TCO2 38 mmol/L (19-24); Allen Test Performed? Yes
[2019-02-04 14:29] LABS: ABG PCO2 92 mmHg (35-45); ABG PH 7.19 (7.35-7.45)
--- NOTE | 2019-02-04 14:30 | P.CNPUL ---
History of Present Illness Consult date: 02/04/19 Reason for consult: dyspnea, cough, obstructive sleep apnea Chief complaint: Altered mental status, bilateral basal pneumonia and pleural effusion History of present illness: This is a 73-year-old morbidly obese female 5 days ago and she can into wire fell down and hit her head on the floor she was evaluated at that time exact details are not available, she was brought into emergency department after 5 days as she was found by the family EMS was called and the patient was brought into the ER since the patient has been in the hospital she has been afebrile the patient did have elevated white count was 16,000 on admission patient did complain of cough which has been mild to moderate intensity and bring up some ye llow sputum but no hemoptysis and no pleuritic chest pain she has been treated with Rocephin and Zithromax blood cultures obtained in the ER came back positive for gram-positive cocci that prompted this infectious disease consultation vancomycin has been added patient also have a CT of the chest that may suggest a bilateral basal consolidation, no history of episode of unresponsiveness nausea vomiting or choking on the food available but currently patient is oriented 1 only she is restless she pulled her IV out she is getting a midline I have asked the respiratory to do a blood gas and will obtain a stat computed tomography scan of the head, she had echocardiogram which revealed ejection fraction of 60% LVH andabnormalityhasbeennoted Review of Systems All systems: negative Past Medical History Past Medical History: Atrial Fibrillation, Cancer, COPD, Diabetes Mellitus, GERD/Reflux, Hyperlipidemia, Hypertension, Osteoarthritis (OA), Pneumonia, Thyroid Disorder Additional Past Medical History / Comment(s): BREAST CA, HEART MURMUR, VARICOSE VEINS,HIATAL HERNIA, OSTEOPENIA, STATES "PRE DIABETIC"-Blood sugar elevated when on steroids". possible liver disease-unable to remember, hx ulcer, gout, uses oxygen at 4L continuous History of Any Multi-Drug Resistant Organisms: None Reported Past Surgical History: Appendectomy, Breast Surgery, Cholecystectomy, Joint Replacement Additional Past Surgical History / Comment(s): D&C,[place] [employer] REPLACEMENT.,LAPAROSCOPY, LT MASTECTOMY W/ [employer] , rt breast lumpectomy Past Anesthesia/Blood Transfusion Reactions: Motion Sickness Additional Past Anesthesia/Blood Transfusion Reaction / Comment(s): diff IV starts Smoking Status: Former smoker - Past Family History Mother Family Medical History: Cancer Sister(s) Family Medical History: Cancer Brother(s) Family Medical History: Deep Vein Thrombosis (DVT), Pulmonary Embolus Medications and Allergies Home Medications Medication Instructions Recorded Confirmed Type Simvastatin [Zocor] 10 mg PO HS 10/04/18 02/02/19 History traMADol HCL [Ultram] 50 mg PO BID 10/04/18 02/02/19 History Digoxin [Lanoxin] 125 mcg PO DAILY tab 10/07/18 02/02/19 Rx Lisinopril [Zestril] 20 mg PO DAILY tab 10/07/18 02/02/19 Rx Apixaban [Eliquis] 5 mg PO BID 02/02/19 02/02/19 History Letrozole 2.5 mg PO DAILY 02/02/19 02/02/19 History Levothyroxine Sodium [Synthroid] 150 mcg PO DAILY 02/02/19 02/02/19 History Metoprolol Tartrate [Lopressor] 50 mg PO BID 02/02/19 02/02/19 History Allergies Allergy/AdvReac Type Severity Reaction Status Date / Time No Known Allergies Allergy Verified 10/31/18 09:56 Physical Exam Vitals: Vital Signs Temp Pulse Resp BP Pulse Ox 02/04/19 12:00 98.1 F 69 18 136/66 92 L 02/04/19 08:05 97.8 F 63 18 147/104 96 02/04/19 07:12 92 L 02/04/19 06:00 94 L 02/04/19 05:00 105 H 20 02/04/19 04:00 98.8 F 105 H 20 130/81 95 02/04/19 00:00 98.1 F 66 18 122/86 97 02/03/19 20:00 98.4 F 70 20 134/72 02/03/19 16:00 98.3 F 75 20 111/72 95 Intake and Output 02/03/19 02/04/19 02/04/19 22:59 06:59 14:59 Intake Total 360 1520 90 Output Total 850 Balance 360 670 90 Intake: Intake, IV Titration 1400 Amount Sodium Chloride 0.9% 1, 900 000 ml @ 100 mls/hr IV . Q10H [facility] Rx#:[id number] Vancomycin 1,750 mg In 500 Sodium Chloride 0.9% 500 ml 500 ml @ 167 mls/hr IVPB Q12HR [facility] Rx#: [id number] Oral 360 120 90 Output: Urine 850 Other: Voiding Method Bedpan Bedpan Bedpan Diaper # Voids 1 3 1 Weight 107.2 kg - Constitutional General appearance: average body habitus, disheveled, mild distress, morbidly obese, no acute distress - EENT Eyes: anicteric sclerae, PERRLA, poor dentition, normal appearance ENT: normal oropharynx Ears: bilateral: normal - Neck Neck: normal ROM Carotids: bilateral: upstroke normal, bruit absent Thyroid: bilateral: normal size - Respiratory Respiratory: bilateral: diminished, dullness, rhonchi, wheezing, negative: CTA, rales - Cardiovascular Rhythm: regular Heart sounds: normal: S1, S2 - Gastrointestinal General gastrointestinal: decreased bowel sounds, soft - Integumentary Integumentary: normal - Neurologic Neurologic: CNII-XII intact - Musculoskeletal Oriented 1 only Musculoskeletal: generalized weakness, strength equal bilaterally Results - Laboratory Findings CBC and BMP: 02/04/19 09:33 02/04/19 09:33 PT/INR, D-dimer PT 12.0 sec (9.0-12.0) 02/02/19 10:54 INR 1.1 (<1.2) 02/02/19 10:54 Abnormal lab findings: Abnormal Labs 02/02/19 02/02/19 02/02/19 10:15 10:15 10:15 WBC 16.6 H MCHC 30.3 L RDW 16.0 H Plt Count 484 H Neutrophils # 14.6 H Potassium Chloride Carbon Dioxide BUN 50 H Glucose 127 H POC Glucose (mg/dL) Plasma Lactic Acid Jagdish AST 68 H ALT 55 H Creatine Kinase 325 H CK-MB (CK-2) 3.4 H Total Protein 6.1 L Albumin 3.0 L Urine Appearance Urine Protein Ur Leukocyte Esterase Urine WBC Hyaline Casts Urine Mucus 02/02/19 02/02/19 02/02/19 10:15 16:12 16:12 WBC 12.7 H MCHC 30.2 L RDW 16.1 H Plt Count Neutrophils # 10.6 H Potassium Chloride Carbon Dioxide BUN Glucose POC Glucose (mg/dL) Plasma Lactic Acid Jagdish 3.1 H* AST ALT Creatine Kinase 244 H CK-MB (CK-2) Total Protein Albumin Urine Appearance Urine Protein Ur Leukocyte Esterase Urine WBC Hyaline Casts Urine Mucus 02/02/19 02/02/19 02/02/19 19:10 22:05 22:20 WBC MCHC RDW Plt Count Neutrophils # Potassium Chloride Carbon Dioxide BUN Glucose POC Glucose (mg/dL) 185 H Plasma Lactic Acid Jagdish AST ALT Creatine Kinase 179 H CK-MB (CK-2) Total Protein Albumin Urine Appearance Cloudy H Urine Protein 1+ H Ur Leukocyte Esterase Moderate H Urine WBC 45 H Hyaline Casts 20 H Urine Mucus Occasional H 02/03/19 02/03/19 02/03/19 03:38 05:36 05:36 WBC 12.3 H MCHC 29.8 L RDW 16.4 H Plt Count Neutrophils # 10.1 H Potassium 3.4 L Chloride 109 H Carbon Dioxide BUN 29 H Glucose POC Glucose (mg/dL) Plasma Lactic Acid Jagdish AST 44 H ALT Creatine Kinase 137 H 139 H CK-MB (CK-2) Total Protein 5.3 L Albumin 2.6 L Urine Appearance Urine Protein Ur Leukocyte Esterase Urine WBC Hyaline Casts Urine Mucus 02/03/19 02/03/19 02/03/19 11:50 16:48 20:47 WBC MCHC RDW Plt Count Neutrophils # Potassium Chloride Carbon Dioxide BUN Glucose POC Glucose (mg/dL) 114 H 168 H 168 H Plasma Lactic Acid Jagdish AST ALT Creatine Kinase CK-MB (CK-2) Total Protein Albumin Urine Appearance Urine Protein Ur Leukocyte Esterase Urine WBC Hyaline Casts Urine Mucus 02/04/19 02/04/19 02/04/19 06:36 09:33 09:33 WBC 19.2 H MCHC 29.5 L RDW 16.4 H Plt Count 458 H Neutrophils # 16.9 H Potassium Chloride Carbon Dioxide 35 H BUN 20 H Glucose 139 H POC Glucose (mg/dL) 142 H Plasma Lactic Acid Jagdish AST ALT Creatine Kinase CK-MB (CK-2) Total Protein 6.1 L Albumin 3.0 L Urine Appearance Urine Protein Ur Leukocyte Esterase Urine WBC Hyaline Casts Urine Mucus 02/04/19 11:55 WBC MCHC RDW Plt Count Neutrophils # Potassium Chloride Carbon Dioxide BUN Glucose POC Glucose (mg/dL) 136 H Plasma Lactic Acid Jagdish AST ALT Creatine Kinase CK-MB (CK-2) Total Protein Albumin Urine Appearance Urine Protein Ur Leukocyte Esterase Urine WBC Hyaline Casts Urine Mucus - Diagnostic Findings Chest x-ray: report reviewed, image reviewed CT scan - chest: report reviewed, image reviewed (Finding as reported above) Assessment and Plan Assessment: Status post fall Metabolic encephalopathy Altered mental status Atrial fibrillation on anticoagulants Bilateral pneumonia Pleural effusion Obstructive sleep apnea Suspect hypercapnic respiratory failure Plan: Need to exclude intracranial pathology we'll do a stat computed tomography scan of the head Obtain arterial blood gas Continue gentle hydration Avoid narcotics and benzodiazepine Continue broad-spectrum antibiotic Positive culture likely contamination Other recommendations pending plan of care as per clinical response of the patient Check ultrasound of the chest Time with Patient: Greater than 30
--- NOTE | 2019-02-04 15:16 | PN ---
PROGRESS NOTE DATE OF SERVICE: 02/04/2019 REASON FOR FOLLOWUP: Pneumonia with question of possible aspiration gram-negative. INTERVAL HISTORY: The patient is currently afebrile. The patient did have an IV access yesterday and midline has been placed today. Patient mentioned overall not feeling well but unable to describe any further symptoms. No chest pain. Occasional cough, not bringing up any sputum. No nausea, no vomiting. No abdominal pain, no diarrhea. PHYSICAL EXAMINATION: Blood pressure 136/56 with a pulse of 69, temperature 98.1, she is 92% on 4 L nasal cannula. General description is an elderly female, lying in bed in no distress. RESPIRATORY SYSTEM: Unlabored breathing. Decreased breath sounds at the bases, no wheeze. HEART: S1, S2. Regular rate and rhythm. ABDOMEN: Soft, no tenderness. LABS: Hemoglobin 13.4 with white count 19.2, BUN of 20, creatinine 0.75. DIAGNOSTIC IMPRESSION/PLAN: 1. Patient hospital after a fall. . 2. This patient did have evidence of bilateral pneumonia otherwise CT with possible aspiration: The patient is to have worsening of white count, we will discontinue oral and Zosyn. try to obtain sputum for antibiotic. 3. Positive blood culture with coagulative-negative Staph, likely skin contamination, running further workup for the same. MMODL / IJN: [id number] /
[2019-02-04 15:58] LABS: Glucose,Whole Blood 132 mg/dL (75-99)
[2019-02-04] MEDS: NOREPINEPHRINE 4 MG in SODIUM CHLORIDE 0.9% 250 ML IV SCH (16:00)
[2019-02-04] MEDS ORDERED: SODIUM CHLORIDE 0.9% 500 ML 500 ML IV ONE ×2 (16:00→19:48)
[2019-02-04] MEDS ORDERED: CHLORHEXIDINE GLUCONATE 15 ML CUP MUCOUS MEM ONE (16:10)
[2019-02-04 16:45] LABS: ABG Base Excess 5.8 mmol/L; ABG HCO3 33 mmol/L (21-25); ABG Oxygen Saturation 93.5 % (94-97); ABG PH 7.27 (7.35-7.45); ABG PO2 72 mmHg (83-108); ABG TCO2 35 mmol/L (19-24); Allen Test Performed? Yes
[2019-02-04] MEDS: PROPOFOL 1,000 MG in EMPTY BAG 1 BAG IV SCH ×2 (16:45→23:31)
[2019-02-04 16:52] LABS: ABG PCO2 71 mmHg (35-45)
--- NOTE | 2019-02-04 17:10 | XR ---
EXAMINATION TYPE: XR chest 1V DATE OF EXAM: 02/04/2019 CLINICAL HISTORY: Difficulty breathing had to be intubated. TECHNIQUE: Single AP portable supine view of the chest is obtained. COMPARISON: Chest x-ray from yesterday. CT chest 2 days earlier. FINDINGS: Exam suboptimal due to portable technique and patient's large body habitus. New Endotracheal tube terminates inferior clavicular level approximately 3 cm above tammi. New nasogastr ic tube projects below diaphragm. There is persistent cardiomegaly with left hilar consolidation. Right breast surgical clips redemonst rated. Osseous structures are intact. IMPRESSION: 1. New endotracheal tube and orogastric tubes satisfactory in position. 2. Cardiomegaly with persistent left hilar consolidation.
--- NOTE | 2019-02-04 17:11 | US ---
EXAMINATION TYPE: US chest DATE OF EXAM: 02/04/2019 COMPARISON: Chest CT 2 days earlier. CLINICAL HISTORY: pleural effusion. Shortness of breath. TECHNIQUE: Targeted ultrasound of the posterior lower EXAM MEASUREMENTS: Right Pleural Effusion pocket size: 1.7 cm Right skin surface to fluid distance: 4.5 cm Left Pleural Effusion pocket size: no evident fluid Right side not marked for possible thoracentesis outside the dept. Left side not marked for possible thoracentesis outside the dept. Pulmonologists are able to review the images in the patient?s EMR. IMPRESSIONS: No significant left-sided effusion. Tiny right-sided effusion. Findings correlate with r ecent CT.
--- NOTE | 2019-02-04 17:57 | CT ---
EXAMINATION TYPE: CT brain wo con DATE OF EXAM: 02/04/2019 HISTORY: Altered mental status, fall injury CT DLP: 1099.4 mGycm. Automated Exposure Control for Dose Reduction was Utilized. TECHNIQUE: CT scan of the head is performed without contrast. COMPARISON: CT brain from April 08, 2013. FINDINGS: There is no acute intracranial hemorrhage or midline shift identified. There is diffuse v entricular and sulcal prominence consistent with diffuse age-related cerebral atrophy. There is low- attenuation in the periventricular white matter consistent with chronic small vessel ischemic change. The globes are intact and the visualized sinuses are clear. The calvarium is intact. IMPRESSION: No acute intracranial hemorrhage or midline shift. There is mild diffuse age-related ce rebral atrophy and chronic small vessel ischemic change identified with some progression from 2012 st noted.
[2019-02-04] MEDS: PIPERACILLIN-TAZOBACTAM 3.375 GM in SODIUM CHLORIDE 0.9% 100 ML IVPB SCH (18:41)
[2019-02-04] MEDS: CHLORHEXIDINE GLUCONATE 15 ML CUP MUCOUS MEM SCH (19:59)
[2019-02-04] MEDS: ATORVASTATIN 10 MG TAB PO SCH (19:59)
[2019-02-04] MEDS: HEPARIN SODIUM,PORCINE 5,000 UNIT/ML 1 ML VIAL SQ SCH (19:59)
--- NOTE | 2019-02-04 22:53 | PN ---
PROGRESS NOTE 73-year-old white female with gram-negative pneumonia. The patient has worsening of breathing. Antibiotics have been switched. White count up to 19.2, neutrophils 16.9. ABG was done, pH 7.27, pCO2 71, PO2 72, average bicarb of 35. Cardiovascular: S1-S2. Lungs decreased breath sounds x4. Scattered wheeze and rhonchi x4. Hematology: 2 to 3+ pedal edema. ASSESSMENT: 1. Gram-negative pneumonia. 2. Chronic obstructive pulmonary disease. 3. Dyslipidemia. 4. Cardiac arrhythmia. 5. Hypothyroidism. Norepinephrine is active. Zosyn IV antibiotics are being continued. Norepinephrine for hypertension. Follow up in the next 24 to 48 hours. MMODL / IJN: [id number] /
[2019-02-04] MEDS: IPRATROPIUM-ALBUTEROL 3 ML NEB INHALATION PRN (23:26)
[2019-02-05] MEDS: PIPERACILLIN-TAZOBACTAM 3.375 GM in SODIUM CHLORIDE 0.9% 100 ML IVPB SCH ×3 (00:04→15:19)
[2019-02-05] MEDS: HEPARIN SODIUM,PORCINE 5,000 UNIT/ML 1 ML VIAL SQ SCH ×4 (00:04→15:20)
[2019-02-05] MEDS: NOREPINEPHRINE 4 MG in SODIUM CHLORIDE 0.9% 250 ML IV SCH ×3 (00:05→17:25)
[2019-02-05] MEDS: PROPOFOL 1,000 MG in EMPTY BAG 1 BAG IV SCH ×2 (03:01→07:39)
[2019-02-05] MEDS: IPRATROPIUM-ALBUTEROL 3 ML NEB INHALATION PRN ×2 (03:25→08:07)
[2019-02-05 04:56] LABS: Anisocytosis Slight; Basophils # (A) 0.1 k/uL (0-0.2); Basophils % (A) 1 %; Eosinophils # (A) 0.3 k/uL (0-0.7); Eosinophils % (A) 2 %; HCT 38.5 % (34.0-46.0); HGB 11.6 gm/dL (11.4-16.0); Hypochromasia Marked; Lymphocytes # (A) 1.4 k/uL (1.0-4.8); Lymphocytes % (A) 11 %; MCH 27.9 pg (25.0-35.0); MCHC 30.3 g/dL (31.0-37.0); MCV 92.1 fL (80.0-100.0); Mean Platelet Volume 6.7; Monocytes # (A) 0.4 k/uL (0-1.0); Monocytes % (A) 3 %; Neutrophils # (A) 10.5 k/uL (1.3-7.7); Neutrophils % (A) 82 %; Platelet Count 373 k/uL (150-450); Poikilocytosis Moderate; RBC 4.18 m/uL (3.80-5.40); RDW 16.3 % (11.5-15.5); WBC 12.7 k/uL (3.8-10.6)
[2019-02-05 05:06] LABS: ALT 39 U/L (9-52); AST 23 U/L (14-36); African American GFR (CKD) >90 (>60 ml/min/1.73 sqM); Albumin 2.4 g/dL (3.5-5.0); Alkaline Phosphatase 69 U/L (38-126); Anion Gap 5 mmol/L; Blood Urea Nitrogen 23 mg/dL (7-17); Calcium 9.2 mg/dL (8.4-10.2); Carbon Dioxide 27 mmol/L (22-30); Chloride 110 mmol/L (98-107); Glucose 134 mg/dL (74-99); Sodium 142 mmol/L (137-145); Total Bilirubin 0.3 mg/dL (0.2-1.3)
[2019-02-05 05:24] LABS: ABG Base Excess 4.7 mmol/L; ABG HCO3 29 mmol/L (21-25); ABG Oxygen Saturation 96.3 % (94-97); ABG PCO2 47 mmHg (35-45); ABG PH 7.41 (7.35-7.45); ABG PO2 82 mmHg (83-108); ABG TCO2 31 mmol/L (19-24); Allen Test Performed? Yes
[2019-02-05] MEDS: PANTOPRAZOLE 40 MG/10 ML VIAL IV SCH (07:58)
[2019-02-05] MEDS: CHLORHEXIDINE GLUCONATE 15 ML CUP MUCOUS MEM SCH (07:59)
[2019-02-05] MEDS: LEVOTHYROXINE IVP 100 MCG/5 ML VIAL IV SCH (07:59)
[2019-02-05] MEDS: DIGOXIN 125 MCG TAB PO SCH (08:07)
--- NOTE | 2019-02-05 08:15 | XR ---
EXAMINATION TYPE: XR chest 1V DATE OF EXAM: 02/05/2019 COMPARISON: Prior chest x-ray 02/04/2019, chest CT dated 02/02/2019 HISTORY: Intubated TECHNIQUE: Single frontal view of the chest is obtained. FINDINGS: Endotracheal tube and orogastric tube are overlying appropriate positions. No evident pneu mothorax. Heart remains enlarged. There is some improvement in aeration within the lungs. Bibasilar i ncreased density persists, the hemidiaphragms are obscured. Central vascularity less prominent. Aorta appears enlarged and dense. There are overlying artifacts. IMPRESSION: Improvement in aeration, volume status. There is an aortic aneurysm. Cardiomegaly. Possi ble bilateral pleural effusions and associated atelectasis, correlate to exclude pneumonia.
[2019-02-05] MEDS: SODIUM CHLORIDE 0.9% 1,000 ML IV SCH (08:24)
[2019-02-05] MEDS: FUROSEMIDE 10 MG/ML 4 ML VIAL IV SCH ×2 (09:25→20:20)
--- NOTE | 2019-02-05 09:44 | P.PN ---
Subjective Progress Note Date: 02/05/19 Principal diagnosis: Acute COPD exacerbation, pneumonia, urinary tract infection, hypercapnic hypoxic respiratory failure, obstructive sleep apnea, obesity hypoventilation syndrome, A. fib, GI bleed, chronic anemia, bilateral pleural effusion, diastolic heart failure, obstructive sleep apnea 02/05/2019 Patient seen and evaluated examined during the rounds, patient is sedated with propofol gradually weaned and titrated down the propofol she is on small dose of levo fed drip as well but to come down levo fed hemodynamic status stable blood pressure last checked his 110/78 Is not working very well, patient is awake and does follow simple commands on full ventilator support with assist control rate of 1612 volume of 405 of PEEP and 50% oxygen, chest x-ray and arterial blood gases reviewed, pH is improved to 7.4 from 7.19 and CO2 of 92 pCO2 current improved to 47 patient is on bronchodilator will add Pulmicort and IV steroids as well continue antibiotics avoid and hold anticoagulants for now weaning orders have been initiated we'll attempt weaning and possible extubation later on today we will give Lasix so that she can diurese well, BREASTER pathology like intracranial bleed or major stroke or subdural hematoma have been ruled out with a negative computed tomography s can for now we'll observe clinical course closely the altered mental status more likely due to hypercapnia and hypoxia critical care time was spent 45 minutes This is a 73-year-old morbidly obese female 5 days ago and she can into wire fell down and hit her head on the floor she was evaluated at that time exact details are not available, she was brought into emergency department after 5 days as she was found by the family EMS was called and the patient was brought into the ER since the patient has been in the hospital she has been afebrile the patient did have elevated white count was 16,000 on admission patient did complain of cough which has been mild to moderate intensity and bring up some yellow sputum but no hemoptysis and no pleuritic chest pain she has been treated with Rocephin and Zithromax blood cultures obtained in the ER came back positive for gram-positive cocci that prompted this infectious disease consultation vancomycin has been added patient also have a CT of the chest that may suggest a bilateral basal consolidation, no history of episode of unresponsiveness nausea vomiting or choking on the food available but currently patient is oriented 1 only she is restless she pulled her IV out she is getting a midline I have asked the respiratory to do a blood gas and will obtain a stat computed tomography scan of the head, she had echocardiogram which revealed ejection fraction of 60% LVH and no abnormality has been noted Objective - Vital Signs Vital signs: Vital Signs Temp 98.6 F 02/05/19 04:00 Pulse 86 02/05/19 08:22 Resp 16 02/05/19 07:00 BP 77/44 02/05/19 01:00 Pulse Ox 95 02/05/19 07:00 Intake & Output 02/04/19 02/05/19 02/05/19 18:59 06:59 18:59 Intake Total 470.691 0140.726 200 Output Total 130 235 15 Balance 269.772 4915.726 185 Weight 109.2 kg Intake: IV 600 1600 100 Sodium Chloride 0.9% 1, 600 1600 100 000 ml @ 100 mls/hr IV . Q10H [facility] Rx#:[id number] Intake, IV Titration 42.553 539.726 100 Amount Norepinephrine 4 mg In 38.801 364.686 Sodium Chloride 0.9% 250 ml @ 0.09 MCG/KG/MIN 36. 759 mls/hr IV .[id number] [facility] Rx#:[id number] Propofol 1,000 mg In 3.752 175.040 100 Empty Bag 1 bag @ Titrate IV .Q0M [facility] Rx#: [id number] Oral 90 Output: Urine 130 235 15 Other: Voiding Method Indwelling Catheter Indwelling Catheter # Voids 1 # Bowel Movements 0 ABP, PAP, CO, CI - Last Documented Arterial Blood Pressure 119/74 - Exam - Constitutional General appearance: average body habitus, disheveled, mild distress, morbidly obese, no acute distress - EENT Eyes: anicteric sclerae, PERRLA, poor dentition, normal appearance ENT: normal oropharynx Ears: bilateral: normal - Neck Neck: normal ROM Carotids: bilateral: upstroke normal, bruit absent Thyroid: bilateral: normal size - Respiratory Respiratory: bilateral: diminished, dullness, rhonchi, wheezing, negative: CTA, rales - Cardiovascular Rhythm: regular Heart sounds: normal: S1, S2 - Gastrointestinal General gastrointestinal: decreased bowel sounds, soft - Integumentary Integumentary: normal - Neurologic Neurologic: CNII-XII intact - Musculoskeletal More awake and intubated off of sedation now Musculoskeletal: generalized weakness, strength equal bilaterally - Labs CBC & Chem 7: 02/05/19 04:45 02/05/19 04:45 Labs: Abnormal Lab Results - Last 24 Hours (Table) 02/04/19 02/04/19 02/04/19 Range/Units 09:33 09:33 11:55 WBC 19.2 H (3.8-10.6) k/uL MCHC 29.5 L (31.0-37.0) g/dL RDW 16.4 H (11.5-15.5) % Plt Count 458 H (150-450) k/uL Neutrophils # 16.9 H (1.3-7.7) k/uL ABG pH (7.35-7.45) ABG pCO2 (35-45) mmHg ABG pO2 (83-108) mmHg ABG HCO3 (21-25) mmol/L ABG Total CO2 (19-24) mmol/L ABG O2 Saturation (94-97) % Chloride (98-107) mmol/L Carbon Dioxide 35 H (22-30) mmol/L BUN 20 H (7-17) mg/dL Glucose 139 H (74-99) mg/dL POC Glucose (mg/dL) 136 H (75-99) mg/dL Total Protein 6.1 L (6.3-8.2) g/dL Albumin 3.0 L (3.5-5.0) g/dL 02/04/19 02/04/19 02/04/19 Range/Units 14:24 15:55 16:39 WBC (3.8-10.6) k/uL MCHC (31.0-37.0) g/dL RDW (11.5-15.5) % Plt Count (150-450) k/uL Neutrophils # (1.3-7.7) k/uL ABG pH 7.19 L* 7.27 L (7.35-7.45) ABG pCO2 92 H* 71 H* (35-45) mmHg ABG pO2 79 L 72 L (83-108) mmHg ABG HCO3 36 H 33 H (21-25) mmol/L ABG Total CO2 38 H 35 H (19-24) mmol/L ABG O2 Saturation 93.3 L 93.5 L (94-97) % Chloride (98-107) mmol/L Carbon Dioxide (22-30) mmol/L BUN (7-17) mg/dL Glucose (74-99) mg/dL POC Glucose (mg/dL) 132 H (75-99) mg/dL Total Protein (6.3-8.2) g/dL Albumin (3.5-5.0) g/dL 02/05/19 02/05/19 02/05/19 Range/Units 04:45 04:45 05:17 WBC 12.7 H (3.8-10.6) k/uL MCHC 30.3 L (31.0-37.0) g/dL RDW 16.3 H (11.5-15.5) % Plt Count (150-450) k/uL Neutrophils # 10.5 H (1.3-7.7) k/uL ABG pH (7.35-7.45) ABG pCO2 47 H (35-45) mmHg ABG pO2 82 L (83-108) mmHg ABG HCO3 29 H (21-25) mmol/L ABG Total CO2 31 H (19-24) mmol/L ABG O2 Saturation (94-97) % Chloride 110 H (98-107) mmol/L Carbon Dioxide (22-30) mmol/L BUN 23 H (7-17) mg/dL Glucose 134 H (74-99) mg/dL POC Glucose (mg/dL) (75-99) mg/dL Total Protein 5.0 L (6.3-8.2) g/dL Albumin 2.4 L (3.5-5.0) g/dL Microbiology - Last 24 Hours (Table) 02/02/19 12:00 Blood Culture Gram Stain - Final Blood Blood Culture - Final Staphylococcus epidermidis 02/02/19 22:20 Urine Culture - Final Urine,Voided Assessment and Plan Assessment: Acute hypercapnic hypoxic respiratory failure Acute COPD exacerbation Obesity hypoventilation syndrome Acute hypoxic and hypercapnic respiratory failure Status post fall Metabolic encephalopathy Altered mental status Atrial fibrillation on anticoagulants Bilateral pneumonia GI bleed Pleural effusion Obstructive sleep apnea Plan: Patient will be placed on CPAP and pressure support weaning and possible extubated Diuresis will start on Lasix 40 every 12 hourly IV steroids Bronchodilators Weaning initiated Observe patient off of propofol and the Levophed Once successfully weaned and extubated will need a BiPAP each night and when necessary during the day Avoid narcotics and benzodiazepine Continue broad-spectrum antibiotic Positive culture likely contamination Other recommendations pending plan of care as per clinical response of the patient Checked ultrasound of the chest is small amount of pleural effusion is seen on the right side not enough to tap critical care time 45 minutes
[2019-02-05 10:24] LABS: ABG Base Excess 6.6 mmol/L; ABG HCO3 31 mmol/L (21-25); ABG Oxygen Saturation 95.6 % (94-97); ABG PCO2 50 mmHg (35-45); ABG PO2 78 mmHg (83-108); ABG TCO2 33 mmol/L (19-24); Allen Test Performed? Yes
[2019-02-05] MEDS ORDERED: DILTIAZEM DRIP BOLUS FROM BAG 1 MG SOLN IV ONE (10:30)
[2019-02-05 10:31] VITALS: BMI 47.0
[2019-02-05] MEDS: DILTIAZEM 125 MG in SODIUM CHLORIDE 0.9% 100 ML IV SCH (11:01)
[2019-02-05] MEDS: methylPREDNISolone SOD SUCCI 40 MG/ML 1 ML VIAL IV SCH ×2 (11:11→15:20)
--- NOTE | 2019-02-05 12:02 | PN ---
PROGRESS NOTE A 73-year-old lady who is admitted to hospital with hypertension, dyslipidemia and persistent atrial fibrillation. She remains in AFib, had controlled ventricular rate, but developed AFib with poorly controlled ventricular rate this morning. I am going to resume the intravenous Cardizem. An echocardiogram on this admission revealed normal LV systolic function. PHYSICAL EXAM: Comfortable at rest. Heart rate is 130 beats per minute. Blood pressure is 130/78, respiratory rate is 28. Chest exam reveals diminished air entry at the bases. Heart exam reveals first and second heart sounds, irregular rhythm. Abdomen is soft. Exam of extremities reveal mild edema. Peripheral pulses are felt. Labs show that the hemoglobin is 11.6. ASSESSMENT: Chronic atrial fibrillation with poorly-controlled ventricular rate. PLAN: 1. The patient was on Eliquis prior to admission. This will be resumed once the surgeon is comfortable with it. 2. Will put her back on Cardizem and once she is extubated, heart rate is better controlled, we can resume the beta blockers. MMODL / IJN: [id number] /
[2019-02-05] MEDS: IPRATROPIUM-ALBUTEROL 3 ML NEB INHALATION SCH ×3 (12:27→20:38)
[2019-02-05 12:53] LABS: Glucose,Whole Blood 110 mg/dL (75-99)
--- NOTE | 2019-02-05 13:40 | P.PN ---
Subjective Progress Note Date: 02/05/19 CHIEF COMPLAINT: GI bleed HISTORY OF PRESENT ILLNESS: Patient seen and examined this morning at the bedside. Patient was intubated overnight. She is currently undergoing CPAP trial. Patient with Afib RVR during weaning. Cardizem drip has been started. No bowel movements per nursing. Hemoglobin continues to remain stable. PHYSICAL EXAM: VITAL SIGNS: Reviewed. GENERAL: Well-developed in no acute distress-currently on CPAP trial on ventilator. HEENT: No sclera icterus. Extraocular movements grossly intact. Moist buccal mucosa. Head is atraumatic, normocephalic. ABDOMEN: Soft. Nondistended. Nontender. NEUROLOGIC: Awake. Unable to speak secondary to ET tube. ASSESSMENT: 1. Questionable GI bleed 2. Fall PLAN: 1. Ventilator management per Dr. Joshi. Anticipate extubation today 2. Patient has had no further bleeding since being in the hospital. Family at bedside unable to verify patient was having bloody stools prior to hospitalization. 3. No immediate plans for EGD/colonoscopy at this time. Will re-evaluate when patient is more stable. 4. Okay to resume Eliquis from surgical standpoint secondary to Afib with RVR earlier. Monitor for any signs of bleeding. Nurse practitioner note has been reviewed by physician. Signing provider agrees with the documented findings, assessment, and plan of care. Objective - Vital Signs Vital signs: Vital Signs Temp 99.5 F 02/05/19 12:00 Pulse 102 H 02/05/19 13:00 Resp 42 H 02/05/19 13:00 BP 124/63 02/05/19 12:00 Pulse Ox 89 L 02/05/19 13:00 Intake & Output 02/04/19 02/05/19 02/05/19 18:59 06:59 18:59 Intake Total 208.773 5439.726 1023.618 Output Total 106 699 6773 Balance 336.211 8770.726 -1611.382 Weight 109.2 kg 109.2 kg Intake: IV 600 1600 700 Sodium Chloride 0.9% 1, 600 1600 700 000 ml @ 100 mls/hr IV . Q10H [facility] Rx#:[id number] Intake, IV Titration 42.553 539.726 323.618 Amount Norepinephrine 4 mg In 38.801 364.686 208.914 Sodium Chloride 0.9% 250 ml @ 0.09 MCG/KG/MIN 36. 759 mls/hr IV .Q6H55M [facility] Rx#:[id number] Propofol 1,000 mg In 3.752 175.040 114.704 Empty Bag 1 bag @ Titrate IV .Q0M [facility] Rx#: [id number] Oral 90 Output: Urine 101 443 8229 Other: Voiding Method Indwelling Catheter Indwelling Catheter Indwelling Catheter # Voids 1 # Bowel Movements 0 ABP, PAP, CO, CI - Last Documented Arterial Blood Pressure 86/69 - Labs CBC & Chem 7: 02/05/19 04:45 02/05/19 04:45 Labs: Abnormal Lab Results - Last 24 Hours (Table) 02/04/19 02/04/19 02/04/19 Range/Units 14:24 15:55 16:39 WBC (3.8-10.6) k/uL MCHC (31.0-37.0) g/dL RDW (11.5-15.5) % Neutrophils # (1.3-7.7) k/uL ABG pH 7.19 L* 7.27 L (7.35-7.45) ABG pCO2 92 H* 71 H* (35-45) mmHg ABG pO2 79 L 72 L (83-108) mmHg ABG HCO3 36 H 33 H (21-25) mmol/L ABG Total CO2 38 H 35 H (19-24) mmol/L ABG O2 Saturation 93.3 L 93.5 L (94-97) % Chloride (98-107) mmol/L BUN (7-17) mg/dL Glucose (74-99) mg/dL POC Glucose (mg/dL) 132 H (75-99) mg/dL Total Protein (6.3-8.2) g/dL Albumin (3.5-5.0) g/dL 02/05/19 02/05/19 02/05/19 Range/Units 04:45 04:45 05:17 WBC 12.7 H (3.8-10.6) k/uL MCHC 30.3 L (31.0-37.0) g/dL RDW 16.3 H (11.5-15.5) % Neutrophils # 10.5 H (1.3-7.7) k/uL ABG pH (7.35-7.45) ABG pCO2 47 H (35-45) mmHg ABG pO2 82 L (83-108) mmHg ABG HCO3 29 H (21-25) mmol/L ABG Total CO2 31 H (19-24) mmol/L ABG O2 Saturation (94-97) % Chloride 110 H (98-107) mmol/L BUN 23 H (7-17) mg/dL Glucose 134 H (74-99) mg/dL POC Glucose (mg/dL) (75-99) mg/dL Total Protein 5.0 L (6.3-8.2) g/dL Albumin 2.4 L (3.5-5.0) g/dL 02/05/19 02/05/19 Range/Units 10:20 12:51 WBC (3.8-10.6) k/uL MCHC (31.0-37.0) g/dL RDW (11.5-15.5) % Neutrophils # (1.3-7.7) k/uL ABG pH (7.35-7.45) ABG pCO2 50 H (35-45) mmHg ABG pO2 78 L (83-108) mmHg ABG HCO3 31 H (21-25) mmol/L ABG Total CO2 33 H (19-24) mmol/L ABG O2 Saturation (94-97) % Chloride (98-107) mmol/L BUN (7-17) mg/dL Glucose (74-99) mg/dL POC Glucose (mg/dL) 110 H (75-99) mg/dL Total Protein (6.3-8.2) g/dL Albumin (3.5-5.0) g/dL Microbiology - Last 24 Hours (Table) 02/05/19 01:30 Sputum Culture - Preliminary Sputum 02/02/19 12:00 Blood Culture Gram Stain - Final Blood Blood Culture - Final Staphylococcus epidermidis 02/02/19 22:20 Urine Culture - Final Urine,Voided
[2019-02-05 17:21] LABS: Glucose,Whole Blood 176 mg/dL (75-99)
[2019-02-05] MEDS: INSULIN ASPART (NovoLOG) 100 UNIT/ML VIAL SQ SCH ×2 (17:24→20:27)
--- NOTE | 2019-02-05 18:37 | P.PN ---
Subjective Progress Note Date: 02/05/19 This is a 73-year-old female with gram-negative pneumonia, atrial fibrillation and multiple other medical issues. Maintained on IV antibiotics, nebulized bronchodilators. Declined yesterday, requiring transfer into the ICU. She had become lethargic, difficult to arouse. Hypoxic, ABGs drawn, patient also hypercapnic, and transferred to ICU, intubated. Echo suboptimal study, reported moderate concentric left ventricular hypertrophy with normal LV function, EF 55- 60%, borderline pulmonary hypertension. Brain CT reported no acute hemorrhage or midline shift. Chest CT reported no significant left or right-sided effusions. Received IV fluid bolus of 500 MLS 2. Levophed initiated. Diprivan for sedation. Recently extubated this morning currently tachypneic with respiratory rates up into the low 40s, maintaining O2 sats of 90 on 4 L nasal cannula.Levophed weaned off with Diprovan. Chest x-ray reporting improvement in aeration, aorta enlarged,dense. Remained in controlled atrial fibrillation throughout the night, today developed atrial fibrillation with RVR with Cardizem drip being initiated. Potassium 4, magnesium level ordered. Heart rate currently in the 130s. Diuresing initiated with Lasix IV push. Maintain on IV Zosyn. No further bleeding reported, hemoglobin 11.6. Eliquis remains on hold- endoscopy studies placed on hold. Objective - Vital Signs Vital signs: Vital Signs Temp 99.5 F 02/05/19 16:00 Pulse 106 H 02/05/19 17:00 Resp 29 H 02/05/19 17:00 BP 149/103 02/05/19 16:00 Pulse Ox 94 L 02/05/19 17:00 Intake & Output 02/04/19 02/05/19 02/05/19 18:59 06:59 18:59 Intake Total 646.225 0778.726 1423.618 Output Total 083 047 3289 Balance 448.677 5056.726 -2146.382 Weight 109.2 kg 109.2 kg Intake: IV 600 1600 1100 Sodium Chloride 0.9% 1, 600 1600 1100 000 ml @ 100 mls/hr IV . Q10H [facility] Rx#:[id number] Intake, IV Titration 42.553 539.726 323.618 Amount Norepinephrine 4 mg In 38.801 364.686 208.914 Sodium Chloride 0.9% 250 ml @ 0.09 MCG/KG/MIN 36. 759 mls/hr IV .Q6H55M [facility] Rx#:[id number] Propofol 1,000 mg In 3.752 175.040 114.704 Empty Bag 1 bag @ Titrate IV .Q0M [facility] Rx#: [id number] Oral 90 Output: Urine 153 064 3184 Other: Voiding Method Indwelling Catheter Indwelling Catheter Indwelling Catheter # Voids 1 # Bowel Movements 0 ABP, PAP, CO, CI - Last Documented Arterial Blood Pressure 140/127 - Exam PHYSICAL EXAM: VITAL SIGNS: [As above] GENERAL: Sitting up in bed, recently extubated, appears alert and oriented to person and place HEENT: Conjunctivae normal. eyes normal. Oral mucosa dry NECK: No JVD. No thyroid enlargement. No LNs CARDIOVASCULAR: S1, S2 , irregular.. No murmur RESPIRATION: Breath sounds diminished with Scattered rhonchi rhonchi, no crackles. Expiratory wheezing ABDOMEN: Soft, nontender . No guarding. no masses palpable. Bowel sounds heard. LEGS: Positive edema, bilateral lower extremities cool, positive pulses. PSYCHIATRY: Alert and oriented X1-2, mood and affect normal. NERVOUS SYSTEM: Cranial N 2-12 grossly normal. Moves all 4 limbs. Diffuse weakness , - Labs CBC & Chem 7: 02/05/19 04:45 02/05/19 04:45 Labs: Abnormal Lab Results - Last 24 Hours (Table) 02/05/19 02/05/19 02/05/19 Range/Units 04:45 04:45 05:17 WBC 12.7 H (3.8-10.6) k/uL MCHC 30.3 L (31.0-37.0) g/dL RDW 16.3 H (11.5-15.5) % Neutrophils # 10.5 H (1.3-7.7) k/uL ABG pCO2 47 H (35-45) mmHg ABG pO2 82 L (83-108) mmHg ABG HCO3 29 H (21-25) mmol/L ABG Total CO2 31 H (19-24) mmol/L Chloride 110 H (98-107) mmol/L BUN 23 H (7-17) mg/dL Glucose 134 H (74-99) mg/dL POC Glucose (mg/dL) (75-99) mg/dL Total Protein 5.0 L (6.3-8.2) g/dL Albumin 2.4 L (3.5-5.0) g/dL 02/05/19 02/05/19 Range/Units 10:20 12:51 WBC (3.8-10.6) k/uL MCHC (31.0-37.0) g/dL RDW (11.5-15.5) % Neutrophils # (1.3-7.7) k/uL ABG pCO2 50 H (35-45) mmHg ABG pO2 78 L (83-108) mmHg ABG HCO3 31 H (21-25) mmol/L ABG Total CO2 33 H (19-24) mmol/L Chloride (98-107) mmol/L BUN (7-17) mg/dL Glucose (74-99) mg/dL POC Glucose (mg/dL) 110 H (75-99) mg/dL Total Protein (6.3-8.2) g/dL Albumin (3.5-5.0) g/dL Microbiology - Last 24 Hours (Table) 02/05/19 01:30 Gram Stain - Preliminary Sputum Sputum Culture - Preliminary 02/02/19 12:00 Blood Culture Gram Stain - Final Blood Blood Culture - Final Staphylococcus epidermidis Assessment and Plan Assessment: -Sepsis, secondary to Acute bilateral pneumonia, gram-negative, community- acquired -Acute COPD exacerbation -Acute hypoxic, hypercapnic respiratory failure status post mechanical ventilation -Hypotension, status post pressor dependent -Chronic persistent atrial fibrillation with RVR, currently on Cardizem drip -Possible acute GI bleed, endoscopy workup placed on hold -Hypothyroidism -Dyslipidemia -Aortic aneurysm reported per chest x-ray -Obesity hypoventilation syndrome -Obstructive sleep apnea -Status post fall Plan: Continue on current medication regime ,monitoring and symptomatic treatment. As mentioned above tachypneic, CPAP as per water pollution control inspector/pulmonary. Chest x-ray suggestive of aortic aneurysm, CT of abdomen/pelvis ordered, vascular consult initiated. Antiarrhythmics and anticoagulation as per cardiology. Antibiotics as per ID. Prognosis guarded given multiple complex medical issues. Further recommendations to follow. The impression and plan of care has been dictated as directed. : I performed a history and examination of this patient, discussed the same with the dictator. I agree with the dictator's note ,documented as a scribe. Any additional findings or plans will be noted.
[2019-02-05] MEDS: APIXABAN 5 MG TAB PO SCH (20:20)
[2019-02-05] MEDS: ATORVASTATIN 10 MG TAB PO SCH (20:20)
[2019-02-05] MEDS: BUDESONIDE 0.5 MG/2 ML NEBU INHALATION SCH (20:38)
--- NOTE | 2019-02-05 20:41 | PN ---
PROGRESS NOTE DATE OF SERVICE: 02/05/2019. REASON FOR FOLLOWUP: Pneumonia, possible aspiration. INTERVAL HISTORY: The patient did have acute change in her clinical condition with less responsiveness. The patient did have elevated pCO2, lethargic and respiratory distress and ended up getting intubated last night evening. The patient has been extubated at 10 this morning and has been doing well so far except low-grade fever of 99.5. The patient is feeling weak and tired. No energy. No chest pain. Did have some cough but not bringing up any sputum. No nausea, vomiting. No abdominal pain. No diarrhea. PHYSICAL EXAMINATION: Blood pressure is 106/93 with a pulse of 120, temperature of 99.5, she is 90% on 5 L nasal cannula. General description is an elderly female, lying in bed in no distress. Respiratory system: Unlabored breathing with decreased breath sounds in the bases. HEART: S1, S2. Regular rate and rhythm. Abdomen soft, no tenderness. LABS: Hemoglobin 11.3, white count 13.7, BUN of 23, creatinine 0.64. currently pending. DIAGNOSTIC IMPRESSION AND PLAN: 1. Patient with acute respiratory failure which is likely multifactorial, did have some pneumonia, possible aspiration etiology. The patient is covered with Zosyn. Sputum for to narrow down her antibiotics. Continue supportive care. 2. Positive blood cultures, Staph epidermidis skin contamination with no need for further workup for the same. MMODL / IJN: [id number] /
[2019-02-05 20:48] LABS: Glucose,Whole Blood 290 mg/dL (75-99)
--- NOTE | 2019-02-05 22:58 | CT ---
EXAMINATION TYPE: CT angio abdomen pelvis without and with contrast and with 3-D reconstruction rende rings DATE OF EXAM: 02/05/2019 HISTORY: AAA CT DLP: 2595.4mGycm Automated Exposure Control for Dose Reduction was Utilized. CONTRAST: CT scan of the abdomen and pelvis is performed with IV Contrast, patient injected with 100 mL of Isovue 370. COMPARISON: 04/28/2018 FINDINGS: CARDIOVASCULAR (CHEST): Moderate cardiomegaly with biatrial enlargement. No pericardial effusion. Pul monary arteries negative for acute findings. Aorta is markedly tortuous and nonaneurysmal. CARDIOVASCULAR (ABDOMEN AND PELVIS): The abdominal aorta shows nonaneurysmal relatively-mild atherosc lerotic intimal calcifications, mural thickening, and intraluminal thrombus. The mesenteric and renal arteries are patent. The aortoiliac inflow is widely patent bilaterally. The bilateral [place] [employer] and proxi mal SFA and profunda femoral arteries are widely patent. LIVER/GB: No significant abnormality is appreciated. PANCREAS: No significant abnormality is seen. SPLEEN: No significant abnormality is seen. ADRENALS: No significant abnormality is seen. KIDNEYS: No significant abnormality is seen. BOWEL: The hollow viscera is normal in the abdomen. In the pelvis there are multifocal fluid collecti ons with dependent gas bubbles, each measuring 4 - 6 cm mean diameter. The relationship of these find ings with the bowel loops themselves cannot be ascertained due to the fact that oral contrast was not utilized. These fluid collections appear to be significant and, therefore, would recommend a continu ous 2 hour course of oral contrast followed with CT scanning at the 120 minute ashley. UTERUS/ADNEXA: No gross abnormality seen. LYMPH NODES: No greater than 1cm abdominal or pelvic lymph nodes are appreciated. OSSEOUS STRUCTURES: No significant abnormality is seen. OTHER: No significant additional abnormality is seen. IMPRESSION: 1. No acute arterial process. 2. Multifocal fluid collections within the pelvis, suspicious for abscesses, related to the bowel lo ops. Recommend CT with robust oral contrast opacification of the small and large bowel loops.
[2019-02-06] MEDS: methylPREDNISolone SOD SUCCI 40 MG/ML 1 ML VIAL IV SCH ×3 (00:06→16:26)
[2019-02-06] MEDS: HEPARIN SODIUM,PORCINE 5,000 UNIT/ML 1 ML VIAL SQ SCH (00:07)
[2019-02-06] MEDS: PIPERACILLIN-TAZOBACTAM 3.375 GM in SODIUM CHLORIDE 0.9% 100 ML IVPB SCH ×3 (00:07→16:26)
[2019-02-06] MEDS: NOREPINEPHRINE 4 MG in SODIUM CHLORIDE 0.9% 250 ML IV SCH ×3 (01:28→14:04)
[2019-02-06 06:00] LABS: Basophils % (A) 0 %; Eosinophils % (A) 0 %; HCT 39.2 % (34.0-46.0); Hypochromasia Moderate; Lymphocytes # (A) 0.6 k/uL (1.0-4.8); Lymphocytes % (A) 6 %; MCH 28.1 pg (25.0-35.0); MCHC 30.6 g/dL (31.0-37.0); MCV 91.7 fL (80.0-100.0); Mean Platelet Volume 6.9; Monocytes # (A) 0.2 k/uL (0-1.0); Monocytes % (A) 2 %; Neutrophils # (A) 8.6 k/uL (1.3-7.7); Neutrophils % (A) 91 %; Platelet Count 231 k/uL (150-450); Poikilocytosis Slight; RBC 4.28 m/uL (3.80-5.40); WBC 9.4 k/uL (3.8-10.6)
[2019-02-06 06:21] LABS: ALT 39 U/L (9-52); AST 27 U/L (14-36); African American GFR (CKD) >90 (>60 ml/min/1.73 sqM); Alkaline Phosphatase 79 U/L (38-126); Anion Gap 9 mmol/L; Blood Urea Nitrogen 18 mg/dL (7-17); Carbon Dioxide 29 mmol/L (22-30); Chloride 105 mmol/L (98-107); Glucose 160 mg/dL (74-99); Magnesium 1.5 mg/dL (1.6-2.3); Phosphorus 2.1 mg/dL (2.5-4.5); Potassium 3.3 mmol/L (3.5-5.1); Sodium 143 mmol/L (137-145); Total Bilirubin 0.5 mg/dL (0.2-1.3); Total Protein 6.1 g/dL (6.3-8.2)
[2019-02-06] MEDS ORDERED: Phosphorus Replacement Protoco 1 EACH MISC MISCELLANE PRN ×2 (06:36→06:54)
[2019-02-06] MEDS ORDERED: Potassium Replacement Protocol 1 EACH MISC MISCELLANE PRN ×3 (06:37→14:58)
[2019-02-06] MEDS ORDERED: Magnesium Replacement Protocol 1 EACH MISC MISCELLANE PRN ×2 (06:54→14:58)
[2019-02-06] MEDS: INSULIN ASPART (NovoLOG) 100 UNIT/ML VIAL SQ SCH ×4 (07:13→20:10)
[2019-02-06] MEDS: SODIUM CHLORIDE 0.9% 1,000 ML IV SCH ×2 (07:14→16:26)
[2019-02-06] MEDS ORDERED: POTASSIUM CHLORIDE ER 20 MEQ TAB.ER PO SCH (07:30)
[2019-02-06 07:33] LABS: Glucose,Whole Blood 164 mg/dL (75-99)
--- NOTE | 2019-02-06 07:56 | XR ---
EXAMINATION TYPE: XR chest 1V DATE OF EXAM: 02/06/2019 COMPARISON: Prior chest x-ray 02/05/2019 HISTORY: Extubated, abnormal chest x-ray TECHNIQUE: Single frontal view of the chest is obtained. FINDINGS: Endotracheal tube and orogastric tube have been removed. Heart remains enlarged, patient i s rotated. No evident pneumothorax. There are overlying cardiac leads. Bibasilar increased density ob scures the hemidiaphragms. Central vascularity and interstitium appears somewhat prominently. IMPRESSION: Interval extubation. Correlate for pulmonary venous hypertension and interstitial edema, there may be basilar effusions versus atelectasis, pneumonia not excluded.
[2019-02-06] MEDS ORDERED: POTASSIUM PHOSPHATE 10 MMOL in SODIUM CHLORIDE 0.9% 250 ML IV ONE ×4 (08:00)
[2019-02-06] MEDS: IPRATROPIUM-ALBUTEROL 3 ML NEB INHALATION SCH ×4 (08:02→19:45)
[2019-02-06] MEDS: BUDESONIDE 0.5 MG/2 ML NEBU INHALATION SCH ×2 (08:02→19:45)
[2019-02-06] MEDS: MAGNESIUM SULFATE-D5W PMX 1 GM in DEXTROSE/WATER 1 100ML.BAG IVPB SCH ×2 (08:11→10:21)
[2019-02-06] MEDS: DIGOXIN 125 MCG TAB PO SCH (08:12)
[2019-02-06] MEDS: POTASSIUM CHLORIDE ER 20 MEQ TAB.ER PO SCH ×2 (08:12→10:22)
[2019-02-06] MEDS: FUROSEMIDE 10 MG/ML 4 ML VIAL IV SCH ×2 (08:12→20:10)
[2019-02-06] MEDS: APIXABAN 5 MG TAB PO SCH (08:12)
[2019-02-06] MEDS: LEVOTHYROXINE IVP 100 MCG/5 ML VIAL IV SCH (08:12)
[2019-02-06] MEDS: PANTOPRAZOLE 40 MG/10 ML VIAL IV SCH (08:13)
[2019-02-06] MEDS: DILTIAZEM 125 MG in SODIUM CHLORIDE 0.9% 100 ML IV SCH (10:22)
[2019-02-06] MEDS: METOPROLOL TARTRATE 50 MG TAB PO SCH ×2 (10:34→20:10)
[2019-02-06] MEDS: IOPAMIDOL-300 CONTRAST 30 ML VIAL (ORAL USE) PO PRN ×2 (11:00→11:54)
--- NOTE | 2019-02-06 11:16 | PN ---
PROGRESS NOTE Patient has been extubated yesterday. She is doing better from respiratory standpoint. Remains in atrial fibrillation with poorly controlled ventricular rate. She is on intravenous Cardizem, digoxin, Eliquis 5 b.i.d. and we will resume the metoprolol that she was on. If the heart rate is better controlled, we may cut back and stop the Cardizem. PHYSICAL EXAMINATION: On exam, she remains in respiratory distress. Heart rate is 130s per minute. Blood pressure is 130/80, respiratory rate is 31. Chest exam reveals occasional rhonchi bilaterally. Heart exam reveals first and second heart sounds. No gallop. Irregular rhythm. Examination of extremities reveals mild edema. Peripheral pulses are felt. ASSESSMENT: Chronic atrial fibrillation with poorly controlled ventricular rate. PLAN: We will continue with intravenous Cardizem, resume the metoprolol, see how she does. XIOMARA / CONSTANZA: [id number] /
[2019-02-06 12:01] LABS: Glucose,Whole Blood 298 mg/dL (75-99)
--- NOTE | 2019-02-06 13:06 | CT ---
EXAMINATION TYPE: CT abdomen pelvis wo con DATE OF EXAM: 02/06/2019 COMPARISON: 02/05/2019 HISTORY: Lower pelvic pain with possible abscess CT DLP: 1067 mGycm Examination of the solid and hollow viscera is limited given the lack of contrast. FINDINGS: LUNG BASES: Basilar infiltrates and/or atelectasis with small effusions. LIVER/GB: The gallbladder is unremarkable. No space-occupying hepatic lesion. PANCREAS: No pancreatic mass identified. No inflammatory process seen. SPLEEN: No evidence for splenomegaly. No intrasplenic lesions seen. ADRENALS: No adrenal nodules identified. No evidence for thickening. KIDNEYS: No evidence for renal mass. No nephrolithiasis. Fullness of the bilateral renal collecting s ystems without overt hydronephrosis. BOWEL: Multiple abscesses are seen one of which is noted within the interloop region measuring 6.6 x 3.6 cm. An additional abscess noted within the pelvic inlet measures 4.5 x 3.5 cm. Right lower quadra nt abscess measures 14.9 x 8.0 cm.. Additional abscess with air-fluid level superior to the urinary b ladder measures 9.0 x 4.4 cm. In addition there is a necrotic appearing mass which appears to displac e the uterus ventrally. This mass measures 8.7 x 9.0 cm and may arise from the posterior uterus or ad jacent bowel. Lack of IV contrast limits evaluation. No evidence for free air. Lymph nodes: No evidence for adenopathy greater than 1 cm. Abdominal aorta: Atheromatous changes seen. No evidence for aneurysm. Genital organs: No significant abnormality. Other: No significant abnormality. IMPRESSION: 1. Large multifocal abscesses as discussed above site of origin indeterminate. 2. Large necrotic masslike area posterior to the uterus displacing the uterus ventrally. This mass ma y arise from the uterus or adjacent bowel. 3. Mild fullness of the bilateral renal collecting systems.
[2019-02-06 13:34] LABS: Glucose,Whole Blood 254 mg/dL (75-99)
--- NOTE | 2019-02-06 13:55 | P.PN ---
Subjective Progress Note Date: 02/06/19 CHIEF COMPLAINT: GI bleed HISTORY OF PRESENT ILLNESS: patient examined this morning. She is sitting up in the chair. Daughter at bedside. Patient denies abdominal pain. Denies nausea or vomiting. WBC 9.4. Hemoglobin 12.0 PHYSICAL EXAM: VITAL SIGNS: Reviewed. GENERAL: Well-developed in no acute distress. HEENT: No sclera icterus. Extraocular movements grossly intact. Moist buccal mucosa. Head is atraumatic, normocephalic. ABDOMEN: Soft. Nondistended. Nontender. NEUROLOGIC: Awake. alert. Oriented 3 ASSESSMENT: 1. Questionable GI bleed 2. Fall 3. Multiple abdominal abscesses PLAN: Yesterday, patient went into afib with RVR. patient has had no further rectal bleeding since being in the hospital. Discussed with patient's family at the bedside yesterday who was unable to verify the patient was having bloody stools prior to hospitalization. Patient's hemoglobin has remained stable throughout hospitalization. Eliquis was resumed due to risk-benefit analysis. Patient underwent CTA yesterday revealing a focal fluid collections within the pelvis suspicious for abscesses related to bowel loops. Computed tomography scan of abdomen and pelvis completed with oral contrast today reveals large multifocal abscesses. one of which is noted within the interloop region measuring 6.6 x 3.6 cm. An additional abscess noted within the pelvic inlet measures 4.5 x 3.5 cm. Right lower quadrant abscess measures 14.9 x 8cm. additional abscess with air- fluid levels appear to the urinary bladder measures 9.0 x 4.4 cm. Large necrotic masslike area posterior to the uterus displacing the uterus ventrally. this mass measures 8.7 x 9.0 cm. Eliquis will be discontinued. Continue IV antibiotics. Infectious disease following. Patient to undergo exploratory laparotomy tomorrow with Dr. Larios. Nurse practitioner note has been reviewed by physician. Signing provider agrees with the documented findings, assessment, and plan of care. Objective - Vital Signs Vital signs: Vital Signs Temp 98 F 02/06/19 08:00 Pulse 87 02/06/19 13:00 Resp 28 H 02/06/19 13:00 BP 149/94 02/06/19 13:00 Pulse Ox 90 L 02/06/19 13:00 Intake & Output 02/05/19 02/06/19 02/06/19 18:59 06:59 18:59 Intake Total 2023.618 1775.000 600 Output Total 3670 2935 1300 Balance -1646.382 -1160.000 -700 Weight 109.2 kg 101.9 kg Intake: IV 1200 1200 600 Magnesium Sulfate-D5w Pmx 100 1 gm In Dextrose/Water 1 100ml.bag @ 100 mls/hr IVPB Q1H [facility] Rx#: [id number] Piperacillin-Tazobactam 3 100 .375 gm In Sodium Chloride 0.9% 100 ml @ 25 mls/hr IVPB Q8HR [facility] Rx# :[id number] Sodium Chloride 0.9% 1, 1200 1200 400 000 ml @ 100 mls/hr IV . Q10H [facility] Rx#:[id number] Intake, IV Titration 323.618 225.000 Amount Diltiazem 125 mg In 125.000 Sodium Chloride 0.9% 100 ml @ Per Protocol IV .Q0M [facility] Rx#:[id number] Norepinephrine 4 mg In 208.914 Sodium Chloride 0.9% 250 ml @ 0.09 MCG/KG/MIN 36. 759 mls/hr IV .Q6H55M [facility] Rx#:[id number] Piperacillin-Tazobactam 3 100 .375 gm In Sodium Chloride 0.9% 100 ml @ 25 mls/hr IVPB Q8HR [facility] Rx# :[id number] Propofol 1,000 mg In 114.704 Empty Bag 1 bag @ Titrate IV .Q0M [facility] Rx#: [id number] Oral 500 350 Output: Urine 3670 2935 1300 Other: Voiding Method Indwelling Catheter Indwelling Catheter Indwelling Catheter ABP, PAP, CO, CI - Last Documented Arterial Blood Pressure 106/93 - Labs CBC & Chem 7: 02/06/19 05:12 02/06/19 05:12 Labs: Abnormal Lab Results - Last 24 Hours (Table) 02/05/19 02/05/19 02/06/19 Range/Units 17:17 20:23 05:12 MCHC (31.0-37.0) g/dL RDW (11.5-15.5) % Neutrophils # (1.3-7.7) k/uL Lymphocytes # (1.0-4.8) k/uL Potassium 3.3 L (3.5-5.1) mmol/L BUN 18 H (7-17) mg/dL Glucose 160 H (74-99) mg/dL POC Glucose (mg/dL) 176 H 290 H (75-99) mg/dL Phosphorus 2.1 L (2.5-4.5) mg/dL Magnesium 1.5 L (1.6-2.3) mg/dL Total Protein 6.1 L (6.3-8.2) g/dL Albumin 3.0 L (3.5-5.0) g/dL 02/06/19 02/06/19 02/06/19 Range/Units 05:12 07:08 11:57 MCHC 30.6 L (31.0-37.0) g/dL RDW 16.0 H (11.5-15.5) % Neutrophils # 8.6 H (1.3-7.7) k/uL Lymphocytes # 0.6 L (1.0-4.8) k/uL Potassium (3.5-5.1) mmol/L BUN (7-17) mg/dL Glucose (74-99) mg/dL POC Glucose (mg/dL) 164 H 298 H (75-99) mg/dL Phosphorus (2.5-4.5) mg/dL Magnesium (1.6-2.3) mg/dL Total Protein (6.3-8.2) g/dL Albumin (3.5-5.0) g/dL 02/06/19 Range/Units 13:30 MCHC (31.0-37.0) g/dL RDW (11.5-15.5) % Neutrophils # (1.3-7.7) k/uL Lymphocytes # (1.0-4.8) k/uL Potassium (3.5-5.1) mmol/L BUN (7-17) mg/dL Glucose (74-99) mg/dL POC Glucose (mg/dL) 254 H (75-99) mg/dL Phosphorus (2.5-4.5) mg/dL Magnesium (1.6-2.3) mg/dL Total Protein (6.3-8.2) g/dL Albumin (3.5-5.0) g/dL Microbiology - Last 24 Hours (Table) 02/05/19 01:30 Gram Stain - Preliminary Sputum Sputum Culture - Preliminary
[2019-02-06] MEDS ORDERED: VANCOMYCIN IV PER PHARMACY 1 EACH MISC MISCELLANE PRN (14:57)
--- NOTE | 2019-02-06 14:58 | P.PN ---
Subjective Progress Note Date: 02/06/19 Principal diagnosis: Acute COPD exacerbation, pneumonia, urinary tract infection, hypercapnic hypoxic respiratory failure, obstructive sleep apnea, obesity hypoventilation syndrome, A. fib, GI bleed, chronic anemia, bilateral pleural effusion, diastolic heart failure, obstructive sleep apnea 02/06/2019, patient seen eval examined during the rounds she is awake and alert she is off of U for drip gently being hydrated she is on full liquid diet tolerating very well she went into A. fib with rapid ventricular response rate has been slow down still A. fib is present with controlled ventricular rate breathing is stable she has been on supplemental oxygen she uses almost 6 hours of BiPAP machine hemodynamic status stable denies any abdominal pain white cell count has been stable, CT of the abdominal and pelvis revealed fluid collections within pelvis suspect of abscess related to bowel loops, Dr. Gusman has been following For details please refer to computed tomography scan of the pelvis done today there is a necrotic mass is present which is pushing the uterus anteriorly suspicion of gynecologic malignancy as well patient is being considered for transfer to a tertiary care center 02/05/2019 Patient seen and evaluated examined during the rounds, patient is sedated with propofol gradually weaned and titrated down the propofol she is on small dose of levo fed drip as well but to come down levo fed hemodynamic status stable blood pressure last checked his 110/78 Is not working very well, patient is awake and does follow simple commands on full ventilator support with assist control rate of 1612 volume of 405 of PEEP and 50% oxygen, chest x-ray and arterial blood gases reviewed, pH is improved to 7.4 from 7.19 and CO2 of 92 pCO2 current improved to 47 patient is on bronchodilator will add Pulmicort and IV steroids as well continue antibiotics avoid and hold anticoagulants for now weaning orders have been initiated we'll attempt weaning and possible extubation later on today we will give Lasix so that she can diurese well, [employer] pathology like intracranial bleed or major stroke or subdural hematoma have been ruled out with a negative computed tomography scan for now we'll observe clinical course closely the altered mental status more likely due to hypercapnia and hypoxia critical care time was spent 45 minutes This is a 73-year-old morbidly obese female 5 days ago and she can into wire fell down and hit her head on the floor she was evaluated at that time exact details are not available, she was brought into emergency department after 5 days as she was found by the family EMS was called and the patient was brought into the ER since the patient has been in the hospital she has been afebrile the patient did have elevated white count was 16,000 on admission patient did complain of cough which has been mild to moderate intensity and bring up some yellow sputum but no hemoptysis and no pleuritic chest pain she has been treated with Rocephin and Zithromax blood cultures obtained in the ER came back positive for gram-positive cocci that prompted this infectious disease consultation vancomycin has been added patient also have a CT of the chest that may suggest a bilateral basal consolidation, no history of episode of unresponsiveness nausea vomiting or choking on the food available but currently patient is oriented 1 only she is restless she pulled her IV out she is getting a midline I have asked the respiratory to do a blood gas and will obtain a stat computed tomography scan of the head, she had echocardiogram which revealed ejection fraction of 60% LVH and no abnormality has been noted Objective - Vital Signs Vital signs: Vital Signs Temp 98 F 02/06/19 08:00 Pulse 89 02/06/19 14:00 Resp 38 H 02/06/19 14:00 BP 115/101 02/06/19 14:00 Pulse Ox 94 L 02/06/19 14:00 Intake & Output 02/05/19 02/06/19 02/06/19 18:59 06:59 18:59 Intake Total 2023.618 1708.339 9701 Output Total 3670 2935 2400 Balance -1646.382 -1160.000 -1400 Weight 109.2 kg 101.9 kg Intake: IV 1200 1200 1000 Magnesium Sulfate-D5w Pmx 100 1 gm In Dextrose/Water 1 100ml.bag @ 100 mls/hr IVPB Q1H [facility] Rx#: [id number] Piperacillin-Tazobactam 3 100 .375 gm In Sodium Chloride 0.9% 100 ml @ 25 mls/hr IVPB Q8HR [facility] Rx# :[id number] Sodium Chloride 0.9% 1, 1200 1200 800 000 ml @ 100 mls/hr IV . Q10H [facility] Rx#:[id number] Intake, IV Titration 323.618 225.000 Amount Diltiazem 125 mg In 125.000 Sodium Chloride 0.9% 100 ml @ Per Protocol IV .Q0M [facility] Rx#:[id number] Norepinephrine 4 mg In 208.914 Sodium Chloride 0.9% 250 ml @ 0.09 MCG/KG/MIN 36. 759 mls/hr IV .Q6H55M [facility] Rx#:[id number] Piperacillin-Tazobactam 3 100 .375 gm In Sodium Chloride 0.9% 100 ml @ 25 mls/hr IVPB Q8HR [facility] Rx# :[id number] Propofol 1,000 mg In 114.704 Empty Bag 1 bag @ Titrate IV .Q0M [facility] Rx#: [id number] Oral 500 350 Output: Urine 3670 2935 2400 Other: Voiding Method Indwelling Catheter Indwelling Catheter Indwelling Catheter ABP, PAP, CO, CI - Last Documented Arterial Blood Pressure 106/93 - Exam - Constitutional General appearance: average body habitus, disheveled, mild distress, morbidly obese, no acute distress - EENT Eyes: anicteric sclerae, PERRLA, poor dentition, normal appearance ENT: normal oropharynx Ears: bilateral: normal - Neck Neck: normal ROM Carotids: bilateral: upstroke normal, bruit absent Thyroid: bilateral: normal size - Respiratory Respiratory: bilateral: diminished, dullness, rhonchi, wheezing, negative: CTA, rales - Cardiovascular Rhythm: regular Heart sounds: normal: S1, S2 - Gastrointestinal General gastrointestinal: decreased bowel sounds, soft - Integumentary Integumentary: normal - Neurologic Neurologic: CNII-XII intact - Musculoskeletal More awake and alert responsive oriented 3 Musculoskeletal: generalized weakness, strength equal bilaterally - Labs CBC & Chem 7: 02/06/19 05:12 02/06/19 05:12 Labs: Abnormal Lab Results - Last 24 Hours (Table) 02/05/19 02/05/19 02/06/19 Range/Units 17:17 20:23 05:12 MCHC (31.0-37.0) g/dL RDW (11.5-15.5) % Neutrophils # (1.3-7.7) k/uL Lymphocytes # (1.0-4.8) k/uL Potassium 3.3 L (3.5-5.1) mmol/L BUN 18 H (7-17) mg/dL Glucose 160 H (74-99) mg/dL POC Glucose (mg/dL) 176 H 290 H (75-99) mg/dL Phosphorus 2.1 L (2.5-4.5) mg/dL Magnesium 1.5 L (1.6-2.3) mg/dL Total Protein 6.1 L (6.3-8.2) g/dL Albumin 3.0 L (3.5-5.0) g/dL 02/06/19 02/06/19 02/06/19 Range/Units 05:12 07:08 11:57 MCHC 30.6 L (31.0-37.0) g/dL RDW 16.0 H (11.5-15.5) % Neutrophils # 8.6 H (1.3-7.7) k/uL Lymphocytes # 0.6 L (1.0-4.8) k/uL Potassium (3.5-5.1) mmol/L BUN (7-17) mg/dL Glucose (74-99) mg/dL POC Glucose (mg/dL) 164 H 298 H (75-99) mg/dL Phosphorus (2.5-4.5) mg/dL Magnesium (1.6-2.3) mg/dL Total Protein (6.3-8.2) g/dL Albumin (3.5-5.0) g/dL 02/06/19 Range/Units 13:30 MCHC (31.0-37.0) g/dL RDW (11.5-15.5) % Neutrophils # (1.3-7.7) k/uL Lymphocytes # (1.0-4.8) k/uL Potassium (3.5-5.1) mmol/L BUN (7-17) mg/dL Glucose (74-99) mg/dL POC Glucose (mg/dL) 254 H (75-99) mg/dL Phosphorus (2.5-4.5) mg/dL Magnesium (1.6-2.3) mg/dL Total Protein (6.3-8.2) g/dL Albumin (3.5-5.0) g/dL Microbiology - Last 24 Hours (Table) 02/05/19 01:30 Gram Stain - Preliminary Sputum Sputum Culture - Preliminary Assessment and Plan Assessment: Necrotic pelvic mass and multiple abdominal abscesses Acute hypercapnic hypoxic respiratory failure Acute COPD exacerbation Obesity hypoventilation syndrome Acute hypoxic and hypercapnic respiratory failure Status post fall Metabolic encephalopathy Altered mental status Atrial fibrillation on anticoagulants Bilateral pneumonia GI bleed Pleural effusion Obstructive sleep apnea Plan: Surgical evaluation and surgical gynecological evaluation patient likely will transfer to tertiary care center add vanco Repeat blood cultures Continue gentle diuresis Rate control of A. fib on med a prolonged, continue observe off of anticoagulants IV steroids Bronchodilatorsd Continue BiPAP each night and when necessary during the day Avoid narcotics and benzodiazepine Continue broad-spectrum antibiotic, and vancomycin to be added Other recommendations pending plan of care as per clinical response of the patient Checked ultrasound of the chest is small amount of pleural effusion is seen on the right side not enough to tap critical care time 35 minutes Time with Patient: Greater than 30
--- NOTE | 2019-02-06 15:50 | P.DS ---
Providers Date of admission: 02/03/19 13:28 Expected date of discharge: 02/06/19 Attending physician: Talha Oro Consults: 02/02/19 11:52 Consult Physician Urgent Consulting Provider: Dane Larios Consult Reason/Comments: gi hemorrhage Do you want consulting provider notified?: Yes Consult Physician Urgent Consulting Provider: Ester Ghosh Consult Reason/Comments: A. fib with RVR Do you want consulting provider notified?: Yes 02/03/19 10:49 Consult Physician Routine Consulting Provider: Alexia Gutiérrez Consult Reason/Comments: + blood cultures Do you want consulting provider notified?: Yes 02/03/19 18:09 Consult Physician Routine Consulting Provider: Kwame Joshi Consult Reason/Comments: pt know to you Do you want consulting provider notified?: Yes 02/06/19 12:03 Consult Physician Routine Consulting Provider: Dane Larios Consult Reason/Comments: bowel loops with abscesses Do you want consulting provider notified?: Yes Primary care physician: Talha Oro [facility] Course: Final Diagnoses: -Sepsis, secondary to Acute bilateral pneumonia, gram-negative, community- acquired -Acute COPD exacerbation -Acute hypoxic, hypercapnic respiratory failure status post mechanical ventilation -Hypotension, status post pressor dependent -Chronic persistent atrial fibrillation with RVR, currently on Cardizem drip -Possible acute GI bleed, endoscopy workup placed on hold -Hypothyroidism -Dyslipidemia -Aortic aneurysm reported per chest x-ray, aorta reported as markedly tortuous and non-aneurysmal as per CTA. -Obesity hypoventilation syndrome -Obstructive sleep apnea -Status post fall -Large multifocal abdominal abscesses. -Large necrotic mass like area posterior to the uterus displacing the uterus, possibly arising from the uterus or adjacent bowel,possible uterine malignancy Hospital course:This is a 73-year-old female with gram-negative pneumonia, atrial fibrillation and multiple other medical issues. Maintained on IV antibiotics, nebulized bronchodilators. Declined yesterday, requiring transfer into the ICU. She had become lethargic, difficult to arouse. Hypoxic, ABGs drawn, patient also hypercapnic, and transferred to ICU, intubated. Echo suboptimal study, reported moderate concentric left ventricular hypertrophy with normal LV function, EF 55-60%, borderline pulmonary hypertension. Brain CT reported no acute hemorrhage or midline shift. Chest CT reported no significant left or right-sided effusions. Received IV fluid bolus of 500 MLS 2. Levophed initiated. Diprivan for sedation. Recently extubated this morning currently tachypneic with respiratory rates up into the low 40s, maintaining O2 sats of 90 on 4 L nasal cannula.Levophed weaned off with Diprovan. Chest x-ray reporting improvement in aeration, aorta enlarged,dense. Remained in controlled atrial fibrillation throughout the night, today developed atrial fibrillation with RVR with Cardizem drip being initiated. Potassium 4, magnesium level ordered. Heart rate currently in the 130s. Diuresing initiated with Lasix IV push. Maintain on IV Zosyn. No further bleeding reported, hemoglobin 11.6. Eliquis remains on hold-endoscopy studies placed on hold. Eliquis actually been resumed last night as per surgery, prior to radiology studies. CTA of abdomen and pelvis performed secondary to abnormal chest x-ray suggestive of abdominal aneurysm. CT reported multifocal fluid collections within the pelvis suspicious for abscesses related to bowel loops. CT with oral contrast performed this morning reporting multiple abscesses within the interloop region measuring 6.6 x 3.6, additional abscess noted within the pelvic inlet measuring 4.5 x 3.5 cm, right lower quadrant abscess measuring 14.9 x 8.0 cm, additional abscess with air-fluid level superior to the urinary bladder measuring 9.0 x 4.4 cm. In addition there is a necrotic-appearing mass displacing the uterus, measuring 8.7 x 9.0 cm, possibly arising from the posterior uterus or adjacent bowel. No evidence for free air. Eliquis placed back on hold this afternoon. No further rectal bleeding, hemoglobin has remained stable, currently 12. Receiving both potassium and magnesium supplements today for potassium of 3.3, magnesium 1.5. Maintained on Cardizem drip for A. fib with RVR. Discussed with surgery. Discussed with patient and daughter Sal[place]; consent obtained for transfer. Patient is being transferred to a tertiary center, [facility] for potential life-threatening surgery, [employer]/oncology surgery evaluation, in a stable condition with guarded prognosis. EXAM: GENERAL: Sitting up in chair, alert and oriented 3, no acute distress HEENT: Conjunctivae normal. eyes normal. Oral mucosa moist NECK: Supple, No JVD. CARDIOVASCULAR: S1, S2 , irregular..No murmur RESPIRATION: Breath sounds diminished with Scattered rhonchi rhonchi, no crackles. Expiratory wheezing ABDOMEN: Soft, nontender . No guarding. no masses palpable. Bowel sounds he jose. LEGS: Positive edema, bilateral lower extremities cool, positive pulses. PSYCHIATRY: Alert and oriented X 3, mood and affect normal. NERVOUS SYSTEM: Cranial N 2-12 grossly normal. Moves all 4 limbs. Diffuse weakness Microbiology 02/05/19 01:30 Sputum Gram Stain - Preliminary 02/05/19 01:30 Sputum Sputum Culture - Preliminary 02/02/19 12:00 Blood Blood Culture Gram Stain - Final 02/02/19 12:00 Blood Blood Culture - Final Staphylococcus epidermidis 02/02/19 22:20 Urine,Voided Urine Culture - Final 02/02/19 12:00 Blood Blood Culture - Final The impression and plan of care has been dictated as directed. : I performed a history and examination of this patient, discussed the same with the dictator. I agree with the dictator's note ,documented as a scribe. Any additional findings or plans will be noted. Time taken: 35 minutes Patient Condition at Discharge: Stable Plan - Discharge Summary Discharge Rx Participant: Yes New Discharge Prescriptions: No Action Simvastatin [Zocor] 10 mg PO HS traMADol HCL [Ultram] 50 mg PO BID Digoxin [Lanoxin] 125 mcg PO DAILY tab Lisinopril [Zestril] 20 mg PO DAILY tab Metoprolol Tartrate [Lopressor] 50 mg PO BID Levothyroxine Sodium [Synthroid] 150 mcg PO DAILY Letrozole 2.5 mg PO DAILY Apixaban [Eliquis] 5 mg PO BID Discharge Medication List Simvastatin [Zocor] 10 mg PO HS 10/04/18 [History] traMADol HCL [Ultram] 50 mg PO BID 10/04/18 [History] Digoxin [Lanoxin] 125 mcg PO DAILY tab 10/07/18 [Rx] Lisinopril [Zestril] 20 mg PO DAILY tab 10/07/18 [Rx] Apixaban [Eliquis] 5 mg PO BID 02/02/19 [History] Letrozole 2.5 mg PO DAILY 02/02/19 [History] Levothyroxine Sodium [Synthroid] 150 mcg PO DAILY 02/02/19 [History] Metoprolol Tartrate [Lopressor] 50 mg PO BID 02/02/19 [History] Follow up Appointment(s)/Referral(s): Talha Oro MD [Primary Care Provider] - 1-2 days Kwame Joshi MD [STAFF PHYSICIAN] - 1 Week
[2019-02-06] MEDS ORDERED: VANCOMYCIN 1,750 MG in SODIUM CHLORIDE 0.9% 500 ML 500 ML IVPB SCH (16:00)
--- NOTE | 2019-02-06 16:19 | PN ---
PROGRESS NOTE 02/06/2019. REASON FOR FOLLOWUP: Pneumonia and question abdominal abscess. INTERVAL HISTORY: The patient is currently afebrile. Patient has been breathing comfortably. She did have a cough but not bringing up any sputum. Denies any abdominal pain. No nausea, vomiting, or any diarrhea. PHYSICAL EXAMINATION: Blood pressure 149/94 with a pulse of 87, temperature 98. She is 98% on 5 L of oxygen. General description is an elderly female up in the bed in no distress. Respiratory system: Unlabored breathing. Decreased breath sounds in the bases. No wheeze. Heart is S1, S2. Regular rate and rhythm. Abdomen soft, no tenderness. LABS: Hemoglobin is 12.8, white count 9.4, BUN of 18, creatinine 0.72. A CT of the abdominal and pelvis yesterday is concerning for possible abdominal abscess for which a CT of the abdomen and pelvis has been repeated today with just evidence of large multifocal abscesses. DIAGNOSTIC IMPRESSION AND PLAN: Patient with a component of possible aspiration pneumonia with and also with abdominal abscess with necrotic . Surgery is on the case. The patient is covered with Zosyn while monitoring clinical course closely. Once drained, fluid should be sent for culture. MMODL / IJN: [id number] /
[2019-02-06 18:21] LABS: Glucose,Whole Blood 275 mg/dL (75-99)
[2019-02-06 20:09] LABS: Glucose,Whole Blood 274 mg/dL (75-99)
[2019-02-06] MEDS: ATORVASTATIN 10 MG TAB PO SCH (20:10)
[2019-02-06 20:22] VITALS: BP 151/100; TEMP 98.3
[2019-02-06 21:14] VITALS: PULSE 115; RESP 38
== END 2019-02-06 21:15 | disposition short-term general hospital (02) | DRG 871 ==
LOC: EC 10:02 → 3SCARD 12:05 → OBSVTOIN 02-03 13:28 → 2SICU 02-04 16:18
PROVIDERS: ADMIT Family Medicine; ATTEND Family Medicine
PROC: 0BH17EZ Insertion of Endotracheal Airway into Trachea, Via Natural or Artificial Opening (ICD-10-PCS; 2019-02-04)
PROC: 5A1935Z Respiratory Ventilation, Less than 24 Consecutive Hours (ICD-10-PCS; 2019-02-04)
PROC: 05HB33Z Insertion of Infusion Device into Right Basilic Vein, Percutaneous Approach (ICD-10-PCS; principal; 2019-02-04 08:55)
PROC: 05HF33Z Insertion of Infusion Device into Left Cephalic Vein, Percutaneous Approach (ICD-10-PCS; 2019-02-04 08:55)
PROC: 5A09357 Assistance with Respiratory Ventilation, Less than 24 Consecutive Hours, Continuous Positive Airway Pressure (ICD-10-PCS; 2019-02-05)
DX: A41.9 Sepsis, unspecified organism (principal); J15.6 Pneumonia due to other Gram-negative bacteria; G93.41 Metabolic encephalopathy; J96.01 Acute respiratory failure with hypoxia; J96.02 Acute respiratory failure with hypercapnia; K65.1 Peritoneal abscess; J69.0 Pneumonitis due to inhalation of food and vomit; M62.82 Rhabdomyolysis; I48.1 Persistent atrial fibrillation; E66.2 Morbid (severe) obesity with alveolar hypoventilation; Z68.41 Body mass index [BMI] 40.0-44.9, adult; J44.0 Chronic obstructive pulmonary disease with (acute) lower respiratory infection; J44.1 Chronic obstructive pulmonary disease with (acute) exacerbation; N39.0 Urinary tract infection, site not specified; J98.11 Atelectasis; I50.32 Chronic diastolic (congestive) heart failure; K92.1 Melena; I11.0 Hypertensive heart disease with heart failure; I27.20 Pulmonary hypertension, unspecified; I48.2 Chronic atrial fibrillation; C50.912 Malignant neoplasm of unspecified site of left female breast; E11.9 Type 2 diabetes mellitus without complications; D64.9 Anemia, unspecified; I71.9 Aortic aneurysm of unspecified site, without rupture; E03.9 Hypothyroidism, unspecified; G47.33 Obstructive sleep apnea (adult) (pediatric); K21.9 Gastro-esophageal reflux disease without esophagitis; E78.5 Hyperlipidemia, unspecified; M19.90 Unspecified osteoarthritis, unspecified site; K44.9 Diaphragmatic hernia without obstruction or gangrene; I83.90 Asymptomatic varicose veins of unspecified lower extremity; M85.80 Other specified disorders of bone density and structure, unspecified site; Z79.01 Long term (current) use of anticoagulants; Z79.890 Hormone replacement therapy; Z79.811 Long term (current) use of aromatase inhibitors; Z79.891 Long term (current) use of opiate analgesic; Z79.899 Other long term (current) drug therapy; Z71.3 Dietary counseling and surveillance; Z87.01 Personal history of pneumonia (recurrent); Z90.49 Acquired absence of other specified parts of digestive tract; Z96.653 Presence of artificial knee joint, bilateral; Z90.12 Acquired absence of left breast and nipple; Z98.890 Other specified postprocedural states; Z87.891 Personal history of nicotine dependence; Z83.2 Family history of diseases of the blood and blood-forming organs and certain disorders involving the immune mechanism; Z80.9 Family history of malignant neoplasm, unspecified; W06.XXXA Fall from bed, initial encounter; Y92.003 Bedroom of unspecified non-institutional (private) residence as the place of occurrence of the external cause
CPT/HCPCS: 36410; 36415; 36600; 70450; 71045; 71046; 71250; 72170; 74174; 74176; 76604; 76937; 80053; 81001; 82550; 82553; 82565; 82805; 83605; 83735; 83880; 84100; 84443; 84484; 85025; 85610; 85730; 86850; 86900; 86901; 87040; 87070; 87077; 87086; 87186; 87205; 93005; 93306; 94002; 94003; 94640; 94660; 94760; 96361; 96365; 96366; 96368; 96375; 99291